=== PATIENT | male | born 1940 | race Caucasian/White ===

== ENCOUNTER 2020-08-24 19:51 | Inpatient (IN) | payer MEDICARE ==
--- NOTE | 2020-08-24 22:12 | ED ---
General Adult HPI - General Chief complaint: Skin/Abscess/Foreign Body Stated complaint: Failure to thrive Time Seen by Provider: 08/24/20 20:45 Source: patient, EMS Mode of arrival: EMS Limitations: altered mental status - History of Present Illness Initial comments: 80-year-old male patient is sent to the emergency department via EMS for decreased oral intake, increased lethargy, and pressure ulcers on the buttocks. Patient lives at home with his daughter. They do report a history of dementia. Patient has not been eating or drinking over the last 3 days. Patient states this is because he has no appetite. He denies any abdominal pain. Reports pain to the bilateral lower extremities. Patient is also developed wounds over the lower back and right hip region. Patient denies fevers or chills. They have consulted hospice recently, daughter is not present to provide information about this, patient is unaware. Patient denies any recent rash, fever, chills, cough, shortness of breath, chest pain, numbness, tingling, dizziness, weakness, hem aturia, dysuria, urinary urgency, urinary frequency, headache, visual changes, or any other complaints. - Related Data Allergies Allergy/AdvReac Type Severity Reaction Status Date / Time No Known Allergies Allergy Verified 08/24/20 20:04 Review of Systems ROS Statement: Those systems with pertinent positive or pertinent negative responses have been documented in the HPI. ROS Other: All systems not noted in ROS Statement are negative. Past Medical History Past Medical History: Unable to Obtain, Dementia History of Any Multi-Drug Resistant Organisms: Unobtainable Past Surgical History: Unable to Obtain Past Psychological History: Unable to Obtain Past Alcohol Use History: Unable to Obtain Past Drug Use History: Unable to Obtain General Exam Limitations: altered mental status General appearance: in no apparent distress, other (This is a malnourished, thin, pale-appearing male patient who does not appear to be in any acute distress. Vital signs upon presentation are pulse 103, respirations 18, blood pressure 105/68, pulse ox 96% on room air.) Eye exam: Present: normal appearance, PERRL, EOMI. Absent: scleral icterus, conjunctival injection, periorbital swelling ENT exam: Present: normal exam, normal oropharynx, mucous membranes dry Respiratory exam: Present: normal lung sounds bilaterally. Absent: respiratory distress, wheezes, rales, rhonchi, stridor Cardiovascular Exam: Present: normal rhythm, tachycardia, normal heart sounds. Absent: systolic murmur, diastolic murmur, rubs, gallop, clicks GI/Abdominal exam: Present: soft, normal bowel sounds. Absent: distended, tenderness, guarding, rebound, rigid Extremities exam: Present: other (There is large unstageable pressure ulcer noted to the right lateral hip. Yellow drainage noted. There is mild surrounding erythema.) Back exam: Present: other (There is a pressure ulcer noted over the lumbosacral region, this appears to be stage II. Yellow drainage noted.) Neurological exam: Present: alert, oriented X3, CN II-XII intact Psychiatric exam: Present: normal affect, normal mood Skin exam: Present: warm, dry, intact, normal color. Absent: rash Course Vital Signs 08/24/20 08/24/20 08/24/20 19:53 20:44 21:06 Temperature 97.3 F L Pulse Rate 103 H 75 Respiratory 18 15 Rate Blood Pressure 105/68 105/58 O2 Sat by Pulse 96 98 Oximetry 08/24/20 08/24/20 08/24/20 22:03 22:38 23:00 Temperature 97.7 F Pulse Rate 84 89 Respiratory 15 14 Rate Blood Pressure 88/66 88/55 96/78 O2 Sat by Pulse 98 100 Oximetry 08/24/20 23:38 Temperature Pulse Rate 69 Respiratory 15 Rate Blood Pressure 108/70 O2 Sat by Pulse 99 Oximetry - Reevaluation(s) Reevaluation #1: 08/24/20 23:03 Patient diagnosed with sepsis at 2303. Antibiotics will be started. Medical Decision Making - Medical Decision Making 80-year-old male patient is brought to the emergency department today for evaluation of wounds to the upper buttocks and low back. Daughter cares for the patient home, states that he seems to be displaying signs of dementia. States that he refuses to go to the doctor have any care done. States he has been re fusing to have her change in for the last few days. She was a wounds over his buttocks and made him come in tonight. Upon arrival patient is resting comfortably in bed, he appears quite thin and pale. Lungs are clear to auscultation. He does have a large pressure ulcer to the right hip and to the sacral region. Labs reviewed and did reveal elevated white blood cell count at 31.6, hemoglobin 11.2, sodium 124, chloride 89. BUN is elevated at 47, creatinine 1.27. Patient has no previous labs are visit to this hospital. Daughter states that she was attempting to get him in place with hospice but has not yet been able to do so. Patient was started on vancomycin and Zosyn at time of sepsis diagnosis. He'll be admitted to the hospital for further evaluation. He is agreeable. - Lab Data Result diagrams: 08/24/20 22:19 08/24/20 22:19 Lab Results 08/24/20 08/24/20 08/24/20 Range/Units 22:19 22:19 22:19 WBC 31.6 H (3.8-10.6) k/uL RBC 3.58 L (4.30-5.90) m/uL Hgb 11.2 L (13.0-17.5) gm/dL Hct 34.1 L (39.0-53.0) % MCV 95.2 (80.0-100.0) fL MCH 31.2 (25.0-35.0) pg MCHC 32.8 (31.0-37.0) g/dL RDW 13.6 (11.5-15.5) % Plt Count 341 (150-450) k/uL Neutrophils % 96 % Lymphocytes % 2 % Monocytes % 2 % Eosinophils % 0 % Basophils % 0 % Neutrophils # 30.3 H (1.3-7.7) k/uL Lymphocytes # 0.5 L (1.0-4.8) k/uL Monocytes # 0.7 (0-1.0) k/uL Eosinophils # 0.1 (0-0.7) k/uL Basophils # 0.0 (0-0.2) k/uL Manual Slide Review Performed PT 10.8 (9.0-12.0) sec INR 1.1 (<1.2) APTT 29.0 (22.0-30.0) sec Sodium 124 L (137-145) mmol/L Potassium 3.8 (3.5-5.1) mmol/L Chloride 89 L (98-107) mmol/L Carbon Dioxide 30 (22-30) mmol/L Anion Gap 5 mmol/L BUN 47 H (9-20) mg/dL Creatinine 1.27 H (0.66-1.25) mg/dL Est GFR (CKD-EPI)AfAm 62 (>60 ml/min/1.73 sqM) Est GFR (CKD-EPI)NonAf 53 (>60 ml/min/1.73 sqM) Glucose 109 H (74-99) mg/dL Plasma Lactic Acid Aman (0.7-2.0) mmol/L Calcium 8.5 (8.4-10.2) mg/dL Total Bilirubin 1.4 H (0.2-1.3) mg/dL AST 29 (17-59) U/L ALT 24 (4-49) U/L Alkaline Phosphatase 93 (38-126) U/L Total Protein 5.7 L (6.3-8.2) g/dL Albumin 2.6 L (3.5-5.0) g/dL 08/24/20 Range/Units 22:19 WBC (3.8-10.6) k/uL RBC (4.30-5.90) m/uL Hgb (13.0-17.5) gm/dL Hct (39.0-53.0) % MCV (80.0-100.0) fL MCH (25.0-35.0) pg MCHC (31.0-37.0) g/dL RDW (11.5-15.5) % Plt Count (150-450) k/uL Neutrophils % % Lymphocytes % % Monocytes % % Eosinophils % % Basophils % % Neutrophils # (1.3-7.7) k/uL Lymphocytes # (1.0-4.8) k/uL Monocytes # (0-1.0) k/uL Eosinophils # (0-0.7) k/uL Basophils # (0-0.2) k/uL Manual Slide Review PT (9.0-12.0) sec INR (<1.2) APTT (22.0-30.0) sec Sodium (137-145) mmol/L Potassium (3.5-5.1) mmol/L Chloride (98-107) mmol/L Carbon Dioxide (22-30) mmol/L Anion Gap mmol/L BUN (9-20) mg/dL Creatinine (0.66-1.25) mg/dL Est GFR (CKD-EPI)AfAm (>60 ml/min/1.73 sqM) Est GFR (CKD-EPI)NonAf (>60 ml/min/1.73 sqM) Glucose (74-99) mg/dL Plasma Lactic Acid Aman 2.0 (0.7-2.0) mmol/L Calcium (8.4-10.2) mg/dL Total Bilirubin (0.2-1.3) mg/dL AST (17-59) U/L ALT (4-49) U/L Alkaline Phosphatase (38-126) U/L Total Protein (6.3-8.2) g/dL Albumin (3.5-5.0) g/dL - EKG Data -: EKG Interpreted by Pr EKG Comments: EKG obtained at 2228 shows atrial fibrillation at a rate of 91, QRS duration is 86, QT 382, QTc 469. No evidence of ST elevation or depression. Disposition Clinical Impression: Sepsis, Pressure ulcer, Failure to thrive, Dehydration Disposition: ADMITTED IP TO THIS [facility] Condition: Serious Referrals: None,Stated [Primary Care Provider] - 1-2 days Decision to Admit Reason: Admit from EC Decision Date: 08/24/20 Decision Time: 23:55
[2020-08-24 22:28] LABS: Basophils % (A) 0 %; Eosinophils # (A) 0.1 k/uL (0-0.7); Eosinophils % (A) 0 %; HCT 34.1 % (39.0-53.0); HGB 11.2 gm/dL (13.0-17.5); Lymphocytes # (A) 0.5 k/uL (1.0-4.8); Lymphocytes % (A) 2 %; MCH 31.2 pg (25.0-35.0); MCHC 32.8 g/dL (31.0-37.0); MCV 95.2 fL (80.0-100.0); Mean Platelet Volume 7.5; Monocytes # (A) 0.7 k/uL (0-1.0); Monocytes % (A) 2 %; Neutrophils # (A) 30.3 k/uL (1.3-7.7); Neutrophils % (A) 96 %; Platelet Count 341 k/uL (150-450); RBC 3.58 m/uL (4.30-5.90); RDW 13.6 % (11.5-15.5); WBC 31.6 k/uL (3.8-10.6)
[2020-08-24 22:36] LABS: Albumin 2.6 g/dL (3.5-5.0); Calcium 8.5 mg/dL (8.4-10.2); Potassium 3.8 mmol/L (3.5-5.1); Total Bilirubin 1.4 mg/dL (0.2-1.3); Total Protein 5.7 g/dL (6.3-8.2)
[2020-08-24] MEDS: SODIUM CHLORIDE 0.9% 500 ML 500 ML IV SCH ×2 (22:39→23:09)
[2020-08-24 22:41] LABS: INR 1.1 (<1.2); Prothrombin Time 10.8 sec (9.0-12.0)
[2020-08-24] MEDS ORDERED: PIPERACILLIN-TAZOBACTAM 3.375 GM in SODIUM CHLORIDE 0.9% 100 ML IVPB STA (23:03)
[2020-08-24] MEDS ORDERED: VANCOMYCIN IV PER PHARMACY 1 EACH MISC MISCELLANE PRN (23:03)
[2020-08-24] MEDS ORDERED: SODIUM CHLORIDE 0.9% 500 ML 500 ML IV ONE (23:06)
[2020-08-24] MEDS: SODIUM CHLORIDE 0.9% 1,000 ML IV SCH (23:40)
[2020-08-24] MEDS ORDERED: HYDROmorphone 0.5 MG/0.5 ML SYRINGE IVP PRN (23:49)
[2020-08-24] MEDS ORDERED: ONDANSETRON 4 MG/2 ML VIAL IVP PRN (23:49)
[2020-08-24] MEDS ORDERED: NALOXONE 0.4 MG/ML 1 ML VIAL IV PRN (23:49)
[2020-08-25] MEDS ORDERED: VANCOMYCIN 1,000 MG in SODIUM CHLORIDE 0.9% 250 ML IVPB ONE ×2
[2020-08-25] MEDS ORDERED: HEPARIN SODIUM,PORCINE 5,000 UNIT/ML 1 ML VIAL IV PRN (00:21)
[2020-08-25] MEDS ORDERED: HEPARIN SODIUM,PORCINE 5,000 UNIT/ML 1 ML VIAL IV ONE (00:21)
[2020-08-25] MEDS: HEPARIN SOD,PORK IN 0.45% NACL 25,000 UNIT in 0.45% NACL 1 250ML.BAG IV SCH (00:56)
[2020-08-25 01:32] LABS: Appearance,Urine Cloudy (Clear); Bilirubin,Urine Negative (Negative); Blood,Urine Negative (Negative); Calcium Oxalate Crystals,Urine Occasional /hpf; Color,Urine Dark Brown; Glucose,Urine (UA) Negative (Negative); Hyaline Casts,Urine 282 /lpf (0-2); Ketones,Urine Negative (Negative); Leukocyte Esterase,Urine Trace (Negative); Mucus,Urine Rare /hpf; Nitrite,Urine Negative (Negative); PH, Urine 5.5 (5.0-8.0); Protein,Urine Trace (Negative); RBC,Urine 26 /hpf (0-5); Specific Gravity,Urine 1.016 (1.001-1.035); Squamous Epithelial Cell,Urine <1 /hpf (0-4); WBC,Urine 11 /hpf (0-5)
[2020-08-25 07:32] LABS: Basophils % (A) 0 %; Eosinophils # (A) 0.2 k/uL (0-0.7); Eosinophils % (A) 1 %; HCT 32.3 % (39.0-53.0); HGB 10.2 gm/dL (13.0-17.5); Lymphocytes # (A) 0.9 k/uL (1.0-4.8); Lymphocytes % (A) 3 %; MCH 31.1 pg (25.0-35.0); MCHC 31.7 g/dL (31.0-37.0); MCV 98.2 fL (80.0-100.0); Monocytes # (A) 0.5 k/uL (0-1.0); Monocytes % (A) 2 %; Neutrophils # (A) 28.1 k/uL (1.3-7.7); Neutrophils % (A) 94 %; Platelet Count 284 k/uL (150-450); RBC 3.29 m/uL (4.30-5.90); RDW 14.1 % (11.5-15.5); WBC 29.9 k/uL (3.8-10.6)
[2020-08-25 07:41] LABS: Albumin 2.4 g/dL (3.5-5.0); Calcium 7.9 mg/dL (8.4-10.2); Total Bilirubin 1.7 mg/dL (0.2-1.3); Total Protein 5.7 g/dL (6.3-8.2)
[2020-08-25 07:42] LABS: Potassium 4.1 mmol/L (3.5-5.1)
[2020-08-25 08:31] LABS: Poikilocytosis (M) Present
[2020-08-25] MEDS: SODIUM CHLORIDE 0.9% 1,000 ML IV SCH ×3 (10:04→23:49)
--- NOTE | 2020-08-25 10:54 | P.HPIM ---
History of Present Illness This is a pleasant 80 years old male with unknown past medical history, patient could not provide information so it was taken from the records, staff and daughter. As per my discussion with his daughter Ms. Dougherty at [phone], she told me his in 2011, and since then he started deteriorating, his heavy smoker since he was 9 years old, he used to be heavy drinker, however gradually he got degenerated, he had memory problems, he needed help with feeding, with cleaning, sometimes wears diapers but he told the daughter he just came up from the bathroom which was not true, sometimes he talks with full sentences and sometimes he talks with a few warts or 1-2 words, he didn't have good quality of life. He refuses to go to doctors and he does not trust them as per daughter, usually when he got sick he got to the hospital and it got treated for possible pneumonia or UTI or others go to rehab where he sees doctors and then once he goes home he become noncompliant and he does not follow up with physicians. Because of this patient has 2 daughters and both of them they wanted the patient to go for hospice, Ms. Dougherty was trying to find a place to have accepted for end of life care, she called hospice yesterday in the morning directly by herself because they thought he should be under hospice care. Eventually the port him to the emergency room. Patient looks thin and emaciated, continue his first name but he could not provide information, he does not look in distress. He has a Ray catheter with hematuria. He has multiple pressure ulcers. he is tachycardic and hypoxic with saturations 92% on 6 L o xygen Labs, afebrile. Labs showed leukocytosis of 31.6 and 20 9.9K, anemia with hemoglobin of 10.2, hyponatremia of 124 at 126, acute kidney injury with 1.2 and 1.1. Urinalysis is suspicious for infection. EKG showing A. fib with heart rate of 91 in the emergency room patient was started on heparin drip, Zosyn and vancomycin and normal saline Review of Systems n/a pt could not provide information Past Medical History Past Medical History: Unable to Obtain, Dementia History of Any Multi-Drug Resistant Organisms: Unobtainable Past Surgical History: Unable to Obtain Past Psychological History: Unable to Obtain Past Alcohol Use History: Unable to Obtain Past Drug Use History: Unable to Obtain Medications and Allergies Home Medications Medication Instructions Recorded Confirmed Type Aspirin EC [Ecotrin] 650 mg PO BID PRN 08/25/20 08/25/20 History Multivitamins, Thera [Multivitamin 1 tab PO DAILY 08/25/20 08/25/20 History (formulary)] Naproxen Sodium [Aleve] 220 mg PO DAILY PRN 08/25/20 08/25/20 History Perry-3 Fatty Acids/Fish Oil [Fish 1 cap PO DAILY 08/25/20 08/25/20 History Oil 1,000 mg Softgel] Allergies Allergy/AdvReac Type Severity Reaction Status Date / Time No Known Allergies Allergy Verified 08/25/20 08:26 Physical Exam Vitals: Vital Signs Temp Pulse Pulse Resp BP BP Pulse Ox 08/25/20 08:00 98.4 F 144 H 18 122/77 92 L 08/25/20 06:00 78 16 107/69 96 08/25/20 04:00 79 16 111/64 96 08/25/20 01:40 112/71 08/25/20 01:00 110/64 08/25/20 00:00 110/64 97 08/24/20 23:38 69 15 108/70 99 08/24/20 23:00 89 14 96/78 100 08/24/20 22:38 97.7 F 84 15 88/55 98 08/24/20 22:03 88/66 08/24/20 21:06 75 15 105/58 98 08/24/20 20:44 97.3 F L 08/24/20 19:53 103 H 18 105/68 96 Intake and Output 08/24/20 08/25/20 08/25/20 22:59 06:59 14:59 Output Total 3300 Balance -3300 Output: Urine 3300 Straight 3300 Other: Weight 49.895 kg -GENERAL: The patient is awake but confused, looks calm. She seek and emaciated HEENT: Pupils are round and equally reacting to light. EOMI. No scleral icterus. No conjunctival pallor. Normocephalic, atraumatic. No pharyngeal erythema. No thyromegaly. CARDIOVASCULAR: S1 and S2 present. No murmurs, rubs, or gallops. PULMONARY: Chest is clear to auscultation, no wheezing or crackles. -ABDOMEN: Soft, nontender, nondistended, normoactive bowel sounds. No palpable organomegaly. Ray catheter is in place with hematuria -MUSCULOSKELETAL: No joint swelling or deformity. Multiple pressure ulcers EXTREMITIES: No cyanosis, clubbing, or pedal edema. NEUROLOGICAL: Gross neurological examination did not reveal any focal deficits. SKIN: No rashes. No petechiae Results CBC & Chem 7: 08/25/20 07:15 08/25/20 07:19 Labs: Abnormal Lab Results - Last 24 Hours (Table) 08/24/20 08/24/20 08/25/20 Range/Units 22:19 22:19 01:20 WBC 31.6 H (3.8-10.6) k/uL RBC 3.58 L (4.30-5.90) m/uL Hgb 11.2 L (13.0-17.5) gm/dL Hct 34.1 L (39.0-53.0) % Neutrophils # 30.3 H (1.3-7.7) k/uL Lymphocytes # 0.5 L (1.0-4.8) k/uL APTT (22.0-30.0) sec Sodium 124 L (137-145) mmol/L Chloride 89 L (98-107) mmol/L BUN 47 H (9-20) mg/dL Creatinine 1.27 H (0.66-1.25) mg/dL Glucose 109 H (74-99) mg/dL Calcium (8.4-10.2) mg/dL Total Bilirubin 1.4 H (0.2-1.3) mg/dL Total Protein 5.7 L (6.3-8.2) g/dL Albumin 2.6 L (3.5-5.0) g/dL Urine Protein Trace H (Negative) Ur Leukocyte Esterase Trace H (Negative) Urine RBC 26 H (0-5) /hpf Urine WBC 11 H (0-5) /hpf Calcium Oxalate Crystal Occasional H (None) /hpf Hyaline Casts 282 H (0-2) /lpf Urine Mucus Rare H (None) /hpf 08/25/20 08/25/20 08/25/20 Range/Units 07:15 07:15 07:19 WBC 29.9 H (3.8-10.6) k/uL RBC 3.29 L (4.30-5.90) m/uL Hgb 10.2 L (13.0-17.5) gm/dL Hct 32.3 L (39.0-53.0) % Neutrophils # 28.1 H (1.3-7.7) k/uL Lymphocytes # 0.9 L (1.0-4.8) k/uL APTT 35.1 H (22.0-30.0) sec Sodium 126 L (137-145) mmol/L Chloride 96 L (98-107) mmol/L BUN 47 H (9-20) mg/dL Creatinine (0.66-1.25) mg/dL Glucose (74-99) mg/dL Calcium 7.9 L (8.4-10.2) mg/dL Total Bilirubin 1.7 H (0.2-1.3) mg/dL Total Protein 5.7 L (6.3-8.2) g/dL Albumin 2.4 L (3.5-5.0) g/dL Urine Protein (Negative) Ur Leukocyte Esterase (Negative) Urine RBC (0-5) /hpf Urine WBC (0-5) /hpf Calcium Oxalate Crystal (None) /hpf Hyaline Casts (0-2) /lpf Urine Mucus (None) /hpf Microbiology - Last 24 Hours (Table) 08/25/20 01:20 Urine Culture - Preliminary Urine,Clean Catch Assessment and Plan Assessment: sepsis Hyponatremia Multiple pressure ulcers Hematuria Atrial fibrillation Tachycardia Memory problem, suspicious for dementia, patient has difficulty taking care of himself Cachexia and deconditioning, BMI is 14.9 Generalized weakness Acute kidney injury Noncompliance and adherence to therapy Plan: This is a pleasant 80 years old male presents with multiple problems including sepsis and hyponatremia and pressure ulcers and tachycardia. Patient has multiple medical problems and was gradually deteriorating, I have lengthy discussions with the daughter on the phone, family including Ms. Dougherty wants him to be under hospice care and she states that her only sister agrees with this. This is looks reasonable given the patient's multiple medical conditions, and nonadherence to therapy, poor quality of life, and severe and progressive memory problem with muscle underlying dementia. This Ladonna give me the okay to call for hospice consult. Discussed with the staff Labs and medication were reviewed.. Continue same treatment. Continue with symptomatic treatment. Resume home medication. Monitor lytes and vitals. DVT and GI prophylaxis. Further recommendations depends on the clinical course of the patient Prognosis is extremely guarded
[2020-08-25] MEDS: DILTIAZEM 125 MG in SODIUM CHLORIDE 0.9% 100 ML IV SCH (11:35)
[2020-08-25] MEDS ORDERED: LORazepam 2 MG/ML INJ IV PRN ×2 (15:40→15:44)
[2020-08-25] MEDS ORDERED: VANCOMYCIN 1,000 MG in SODIUM CHLORIDE 0.9% 250 ML IVPB SCH ×2 (17:00→21:00)
--- NOTE | 2020-08-25 17:54 | ECHOF ---
Referral Reason:afib rvr MEASUREMENTS -------- HEIGHT: 177.8 cm WEIGHT: 49.9 kg BP: RVIDd: 3.6 cm (< 3.3) IVSd: 1.0 cm (0.6 - 1.1) LVIDd: 3.1 cm (3.9 - 5.3) LVPWd: 1.2 cm (0.6 - 1.1) IVSs: 1.7 cm LVIDs: 1.9 cm LVPWs: 2.0 cm Ao Diam: 3.4 cm (2.0 - 3.7) AV Cusp: 2.2 cm (1.5 - 2.6) LA Diam: 2.9 cm (2.7 - 3.8) RAP: 5.00 mmHg RVSP: 16.65 mmHg FINDINGS -------- This was a technically difficult study with suboptimal views. The left ventricular size is normal. Left ventricular wall thickness is normal. Overall left vent ricular systolic function is normal with, an EF between 55 - 60 %. The right ventricle is mildly enlarged. The left atrial size is normal. The right atrial size is normal. The aortic valve is trileaflet and appears structurally normal. The mitral valve is normal. There is trace mitral regurgitation. The tricuspid valve appears structurally normal. Trace tricuspid regurgitation present. Right ana tricular systolic pressure is normal at < 35 mmHg. There is no pulmonic regurgitation present. The aortic root size is normal. IVC Not well visulized. There is no pericardial effusion. CONCLUSIONS -------- 1. This was a technically difficult study with suboptimal views. 2. The left ventricular size is normal. 3. Left ventricular wall thickness is normal. 4. Overall left ventricular systolic function is normal with, an EF between 55 - 60 %. 5. The right ventricle is mildly enlarged. 6. There is trace mitral regurgitation. 7. Trace tricuspid regurgitation present. 8. There is no pericardial effusion. CLINICAL ASSESSMENT MANAGER: Krystal Carbajal RDCS
[2020-08-25] MEDS: PIPERACILLIN-TAZOBACTAM 3.375 GM in SODIUM CHLORIDE 0.9% 100 ML IVPB SCH (23:44)
[2020-08-26] MEDS: HEPARIN SOD,PORK IN 0.45% NACL 25,000 UNIT in 0.45% NACL 1 250ML.BAG IV SCH (02:14)
--- NOTE | 2020-08-26 07:48 | P.CRDCN ---
History of Present Illness Consult date: 08/26/20 Requesting physician: [facility] reason: atrial fibrillation Chief complaint: Weakness History of present illness: This is a 80-year-old gentleman the history was obtained from the medical record as the patient is nonverbal. Upon review of the patient's medical record it appears that the patient had been urinating significantly at home and the family was seeking hospice care. He has a significant history of smoking since the age of 9, history of EtOH, dementia, cardiology consultation was requested because of atrial fibrillation with rapid ventricular response. Patient was going to be initiated here on hospice, however a second daughter came to the hospital last night and requested that the patient be a full code. He was seen and examined this morning lying in bed, nonverbal, he does respond to painful stimuli. His EKG on presentation here showed atrial fibrillation with a heart rate in the 90s, yesterday his heart rate did go up into the 12/17/1929 range, he is currently on IV heparin and Cardizem drip. An echocardiogram with Doppler study was performed which revealed an ejection fraction of 55-60%. Blood pressure 144/60 with a heart rate in the 60s, 99% on 6 L of oxygen. Laboratory data was reviewed, white blood cell count on admission 31.6, 29.9 this morning, hemoglobin 10.2, platelet count 284. Sodium 126, potassium 4.1, BUN 47, creatinine 1.1. TSH 3.6. Past Medical History Past Medical History: Unable to Obtain, Dementia, Seizure Disorder Additional Past Medical History / Comment(s): daughter states patient has a history of a head injury with seizures and last seizure was about 25 years ago, patients daughter also states patient has a history of an irregular heart rate, daughter states patient used to be a heavy beer and vodka drinker but hasnt drank heavily in about 4 years History of Any Multi-Drug Resistant Organisms: Unobtainable Past Surgical History: Unable to Obtain Past Psychological History: Unable to Obtain Smoking Status: Former smoker Past Alcohol Use History: Occasional Past Drug Use History: Unable to Obtain Medications and Allergies Home Medications Medication Instructions Recorded Confirmed Type Aspirin EC [Ecotrin] 650 mg PO BID PRN 08/25/20 08/25/20 History Multivitamins, Thera [Multivitamin 1 tab PO DAILY 08/25/20 08/25/20 History (formulary)] Naproxen Sodium [Aleve] 220 mg PO DAILY PRN 08/25/20 08/25/20 History [place]-3 Fatty Acids/Fish Oil [Fish 1 cap PO DAILY 08/25/20 08/25/20 History Oil 1,000 mg Softgel] Allergies Allergy/AdvReac Type Severity Reaction Status Date / Time No Known Allergies Allergy Verified 08/25/20 08:26 Physical Exam Vitals: Vital Signs Temp Pulse Pulse Resp BP BP Pulse Ox 08/26/20 04:00 98.7 F 59 L 20 144/61 99 08/26/20 00:00 74 20 108/55 94 L 08/25/20 20:00 98.2 F 75 20 119/58 100 08/25/20 16:00 98.3 F 78 20 118/73 98 08/25/20 12:00 96.9 F L 97 20 111/78 92 L 08/25/20 11:53 134 H 18 102/76 92 L 08/25/20 08:00 98.4 F 134 H 18 122/77 92 L Intake and Output 08/25/20 08/26/20 08/26/20 22:59 06:59 14:59 Intake Total 101.28 1358.25 Output Total 300 Balance 101.28 1058.25 Intake: IV 1300 Sodium Chloride 0.9% 1, 1300 000 ml @ 130 mls/hr IV . Q7H42M [facility] Rx#:[id number] Intake, IV Titration 101.28 58.25 Amount Heparin Sod,Pork in 0.45% 101.28 58.25 NaCl 25,000 unit In 0.45 % NaCl 1 250ml.bag @ 12 UNITS/KG/HR 5.987 mls/hr IV .Q24H [facility] Rx#: [id number] Output: Urine 300 Straight 300 Other: Voiding Method Indwelling Catheter Indwelling Catheter # Voids 1 Weight 49.895 kg 61.5 kg PHYSICAL EXAMINATION: GENERAL: 80-year-old frail, thin emaciated gentleman, in no acute distress at the time of my examination HEENT: Head is atraumatic, normocephalic. Pupils equal, round. Sclera anicteric. Conjunctiva are clear. Mucous membranes of the mouth are moist. Neck is supple. There is no elevated jugular venous pressure. No carotid bruit is heard. HEART EXAMINATION: Heart S1, S2 normal. No murmur or gallop heard. CHEST EXAMINATION: Lungs reveal crackles at the bases ABDOMEN: Soft, nontender. Bowel sounds are heard. No organomegaly noted. EXTREMITIES: 2+ peripheral pulses with no evidence of peripheral edema and no calf tenderness noted. NEUROLOGIC patient is sleeping, nonverbal, arouses to painful stimuli . Results 08/25/20 07:15 08/25/20 07:19 Cardiac Enzymes 08/25/20 Range/Units 07:19 AST 52 (17-59) U/L Coagulation 08/25/20 08/25/20 08/26/20 Range/Units 07:15 15:36 00:01 APTT 35.1 H 32.4 H 43.7 H (22.0-30.0) sec CBC 08/25/20 Range/Units 07:15 WBC 29.9 H (3.8-10.6) k/uL RBC 3.29 L (4.30-5.90) m/uL Hgb 10.2 L (13.0-17.5) gm/dL Hct 32.3 L (39.0-53.0) % Plt Count 284 (150-450) k/uL Comprehensive Metabolic Panel 08/25/20 Range/Units 07:19 Sodium 126 L (137-145) mmol/L Potassium 4.1 (3.5-5.1) mmol/L Chloride 96 L (98-107) mmol/L Carbon Dioxide 24 (22-30) mmol/L BUN 47 H (9-20) mg/dL Creatinine 1.10 (0.66-1.25) mg/dL Glucose 97 (74-99) mg/dL Calcium 7.9 L (8.4-10.2) mg/dL AST 52 (17-59) U/L ALT 25 (4-49) U/L Alkaline Phosphatase 95 (38-126) U/L Total Protein 5.7 L (6.3-8.2) g/dL Albumin 2.4 L (3.5-5.0) g/dL Current Medications Generic Name Dose Route Start Last Admin Trade Name Freq PRN Reason Stop Dose Admin Acetaminophen 650 mg 08/24/20 23:49 Acetaminophen Tab 325 Mg Tab PO Q6HR PRN Mild Pain or Fever > 100.5 Heparin Sodium (Porcine) 0 unit 08/25/20 00:21 08/25/20 17:51 Heparin Sodium,Porcine 5,000 Unit/Ml 1 Ml Vial IV 2,494.5 unit PER PROTOCOL PRN Administration Low PTT Protocol Hydromorphone HCl 0.5 mg 08/24/20 23:49 Hydromorphone 0.5 Mg/0.5 Ml Syringe IVP Q3HR PRN Moderate Pain Sodium Chloride 1,000 mls @ 130 mls/hr 08/24/20 23:15 08/25/20 23:49 Saline 0.9% IV Not Given .Q7H42M COUNTS INCLUDE 234 BEDS AT THE [facility] Heparin Sodium/Sodium Chloride 250 mls @ 5.987 mls/hr 08/25/20 00:30 08/26/20 02:14 25,000 unit/ Sodium Chloride IV Not Given .Q24H COUNTS INCLUDE 234 BEDS AT THE [facility] Protocol 12 UNITS/KG/HR Diltiazem HCl 125 mg/ Sodium 125 mls @ 5 mls/hr 08/25/20 10:45 08/25/20 11:35 Chloride IV 5 mg/hr .Q24H [facility] 5 mls/hr Administration 5 MG/HR Vancomycin HCl 1,000 mg/ 250 mls @ 125 mls/hr 08/25/20 21:00 08/25/20 21:10 Sodium Chloride IVPB 125 mls/hr Q24H [facility] Administration Piperacillin Sod/Tazobactam 100 mls @ 25 mls/hr 08/26/20 00:00 08/25/20 23:44 Sod 3.375 gm/ Sodium Chloride IVPB 25 mls/hr Q8H [facility] Administration Lorazepam 0.5 mg 08/25/20 15:40 Lorazepam 2 Mg/Ml Inj IV Q6HR PRN Mild Anxiety Lorazepam 1 mg 08/25/20 15:44 08/25/20 15:50 Lorazepam 2 Mg/Ml Inj IV 1 mg Q6HR PRN Administration Moderate Anxiety Naloxone HCl 0.2 mg 08/24/20 23:49 Naloxone 0.4 Mg/Ml 1 Ml Vial IV Q2M PRN Opioid Reversal Ondansetron HCl 4 mg 08/24/20 23:49 Ondansetron 4 Mg/2 Ml Vial IVP Q8HR PRN Nausea And Vomiting Intake and Output 08/25/20 08/26/20 08/26/20 22:59 06:59 14:59 Intake Total 101.28 1358.25 Output Total 300 Balance 101.28 1058.25 Intake: IV 1300 Sodium Chloride 0.9% 1, 1300 000 ml @ 130 mls/hr IV . Q7H42M [facility] Rx#:[id number] Intake, IV Titration 101.28 58.25 Amount Heparin Sod,Pork in 0.45% 101.28 58.25 NaCl 25,000 unit In 0.45 % NaCl 1 250ml.bag @ 12 UNITS/KG/HR 5.987 mls/hr IV .Q24H [facility] Rx#: [id number] Output: Urine 300 Straight 300 Other: Voiding Method Indwelling Catheter Indwelling Catheter # Voids 1 Weight 49.895 kg 61.5 kg 08/25/20 07:15 08/25/20 07:19 EKG Interpretations (text) Initial EKG shows atrial fibrillation with moderately rapid ventricular response Assessment and Plan Plan: Assessment and plan #1 sepsis #2 hyponatremia #3 pressure ulcers #4 atrial fibrillation with rapid ventricular response, persistent #5 dementia #6 nicotine dependence #7 EtOH use #8 acute kidney injury, resolving #9 cachexia and deconditioning Plan Echocardiogram with Doppler study was performed and revealed a normal left ventricular systolic function. We will continue the patient on IV Cardizem and IV heparin at this time. Another discussion today is going to be made regarding hospice care. He is not currently taking any oral medications. Further recommendations to follow. DNP note has been reviewed, I agree with a documented findings and plan of care. Patient was seen and examined.
[2020-08-26 08:05] LABS: African American GFR (CKD) >90 (>60 ml/min/1.73 sqM); Anion Gap 10 mmol/L; Blood Urea Nitrogen 39 mg/dL (9-20); Calcium 7.7 mg/dL (8.4-10.2); Carbon Dioxide 21 mmol/L (22-30); Chloride 101 mmol/L (98-107); Glucose 67 mg/dL (74-99); Non-African American GFR(CKD) 81 (>60 ml/min/1.73 sqM); Potassium 3.4 mmol/L (3.5-5.1); Sodium 132 mmol/L (137-145)
[2020-08-26 08:07] LABS: Basophils % (A) 0 %; Eosinophils # (A) 0.1 k/uL (0-0.7); Eosinophils % (A) 0 %; HGB 9.5 gm/dL (13.0-17.5); Lymphocytes # (A) 0.8 k/uL (1.0-4.8); Lymphocytes % (A) 4 %; MCH 31.4 pg (25.0-35.0); MCHC 31.8 g/dL (31.0-37.0); MCV 98.6 fL (80.0-100.0); Mean Platelet Volume 7.6; Monocytes # (A) 0.4 k/uL (0-1.0); Monocytes % (A) 2 %; Neutrophils % (A) 94 %; Platelet Count 346 k/uL (150-450); RBC 3.04 m/uL (4.30-5.90); RDW 13.8 % (11.5-15.5); WBC 22.5 k/uL (3.8-10.6)
--- NOTE | 2020-08-26 08:59 | P.PN ---
Subjective This is a pleasant 80 years old male with unknown past medical history, patient could not provide information so it was taken from the records, staff and daughter. As per my discussion with his daughter Ms. Dougherty at [phone] feet [phone], she told me his in 2011, and since then he started deteriorating, his heavy smoker since he was 9 years old, he used to be heavy drinker, however gradually he got degenerated, he had memory problems, he needed help with feeding, with cleaning, sometimes wears diapers but he told the daughter he just came up from the bathroom which was not true, sometimes he talks with full sentences and sometimes he talks with a few warts or 1-2 words, he didn't have good quality of life. He refuses to go to doctors and he does not trust them as per daughter, usually when he got sick he got to the hospital and it got treated for possible pneumonia or UTI or others go to rehab where he sees doctors and then once he goes home he become noncompliant and he does not follow up with physicians. Because of this patient has 2 daughters and both of them they wanted the patient to go for hospice, Ms. Dougherty was trying to find a place to have accepted for end of life care, she called hospice yesterday in the morning directly by herself because they thought he should be under hospice care. Eventually the port him to the emergency room. Patient looks thin and emaciated, continue his first name but he could not provide information, he does not look in distress. He has a Ray catheter with hematuria. He has multiple pressure ulcers. he is tachycardic and hypoxic with saturations 92% on 6 L oxygen Labs, afebrile. Labs showed leukocytosis of 31.6 and 20 9.9K, anemia with hemoglobin of 10.2, hyponatremia of 124 at 126, acute kidney injury with 1.2 and 1.1. Urinalysis is suspicious for infection. EKG showing A. fib with heart rate of 91 in the emergency room patient was started on heparin drip, Zosyn and vancomycin and normal saline 08/26/2020 Patient still confused, does not respond to stimuli, does not follow commands, at times he can say his name but nothing else. He looks weak and cachectic, he is contracted in his lower extremity and he has multiple ulcers in his back, scrotum and ankles. Vitals are stable, still on 6 L oxygen via nasal cannula and is saturating 99% WBC is 20 2.5K, sodium is 132. He has a Ray catheter was little hematuria, his hemoglobin 9.5 today compared to 10.2 yesterday. Distal on heparin drip, Cardizem, Zosyn and IV vancomycin. Blood cultures positive for Proteus with sensitivities pending Review of system: N/a Active Medications Generic Name Dose Route Start Last Admin Trade Name Freq PRN Reason Stop Dose Admin Acetaminophen 650 mg 08/24/20 23:49 Acetaminophen Tab 325 Mg Tab PO Q6HR PRN Mild Pain or Fever > 100.5 Heparin Sodium (Porcine) 0 unit 08/25/20 00:21 08/25/20 17:51 Heparin Sodium,Porcine 5,000 Unit/Ml 1 Ml Vial IV 2,494.5 unit PER PROTOCOL PRN Administration Low PTT Protocol Hydromorphone HCl 0.5 mg 08/24/20 23:49 Hydromorphone 0.5 Mg/0.5 Ml Syringe IVP Q3HR PRN Moderate Pain Sodium Chloride 1,000 mls @ 130 mls/hr 08/24/20 23:15 08/25/20 23:49 Saline 0.9% IV Not Given .Q7H42M [facility] Heparin Sodium/Sodium Chloride 250 mls @ 5.987 mls/hr 08/25/20 00:30 08/26/20 02:14 25,000 unit/ Sodium Chloride IV Not Given .Q24H [facility] Protocol 12 UNITS/KG/HR Diltiazem HCl 125 mg/ Sodium 125 mls @ 5 mls/hr 08/25/20 10:45 08/25/20 11:35 Chloride IV 5 mg/hr .Q24H [facility] 5 mls/hr Administration 5 MG/HR Piperacillin Sod/Tazobactam 100 mls @ 25 mls/hr 08/26/20 00:00 08/25/20 23:44 Sod 3.375 gm/ Sodium Chloride IVPB 25 mls/hr Q8H [facility] Administration Vancomycin HCl 1,250 mg/ 250 mls @ 125 mls/hr 08/26/20 13:00 Sodium Chloride IVPB Q16H [facility] Lorazepam 0.5 mg 08/25/20 15:40 Lorazepam 2 Mg/Ml Inj IV Q6HR PRN Mild Anxiety Lorazepam 1 mg 08/25/20 15:44 08/25/20 15:50 Lorazepam 2 Mg/Ml Inj IV 1 mg Q6HR PRN Administration Moderate Anxiety Naloxone HCl 0.2 mg 08/24/20 23:49 Naloxone 0.4 Mg/Ml 1 Ml Vial IV Q2M PRN Opioid Reversal Ondansetron HCl 4 mg 08/24/20 23:49 Ondansetron 4 Mg/2 Ml Vial IVP Q8HR PRN Nausea And Vomiting Objective - Vital Signs Vital signs: Vital Signs Temp 98.7 F 08/26/20 04:00 Pulse 59 L 08/26/20 04:00 Resp 20 08/26/20 04:00 BP 144/61 08/26/20 04:00 Pulse Ox 99 08/26/20 04:00 Intake & Output 08/25/20 08/26/20 08/26/20 18:59 06:59 18:59 Intake Total 1456.28 1358.25 Output Total 300 Balance 1456.28 1058.25 Weight 61.5 kg Intake: IV 1300 Sodium Chloride 0.9% 1, 1300 000 ml @ 130 mls/hr IV . Q7H42M [facility] Rx#:[id number] Intake, IV Titration 1456.28 58.25 Amount Diltiazem 125 mg In 15 Sodium Chloride 0.9% 100 ml @ 5 MG/HR 5 mls/hr IV .Q24H [facility] Rx#:[id number] Heparin Sod,Pork in 0.45% 101.28 58.25 NaCl 25,000 unit In 0.45 % NaCl 1 250ml.bag @ 12 UNITS/KG/HR 5.987 mls/hr IV .Q24H [facility] Rx#: [id number] Piperacillin-Tazobactam 3 50 .375 gm In Sodium Chloride 0.9% 100 ml @ 200 mls/hr IVPB [facility] Rx#:[id number] Sodium Chloride 0.9% 1, 1040 000 ml @ 130 mls/hr IV . Q7H42M [facility] Rx#:[id number] Vancomycin 1,000 mg In 250 Sodium Chloride 0.9% 250 ml @ 125 mls/hr IVPB Q24H [facility] Rx#:[id number] Output: Urine 300 Straight 300 Other: Voiding Method Indwelling Catheter Indwelling Catheter # Voids 1 - Labs CBC & Chem 7: 08/26/20 07:19 08/26/20 07:19 Labs: Abnormal Lab Results - Last 24 Hours (Table) 08/25/20 08/26/20 08/26/20 Range/Units 15:36 00:01 07:19 WBC 22.5 H (3.8-10.6) k/uL RBC 3.04 L (4.30-5.90) m/uL Hgb 9.5 L (13.0-17.5) gm/dL Hct 30.0 L (39.0-53.0) % Neutrophils # 21.0 H (1.3-7.7) k/uL Lymphocytes # 0.8 L (1.0-4.8) k/uL APTT 32.4 H 43.7 H (22.0-30.0) sec Sodium (137-145) mmol/L Potassium (3.5-5.1) mmol/L Carbon Dioxide (22-30) mmol/L BUN (9-20) mg/dL Glucose (74-99) mg/dL Calcium (8.4-10.2) mg/dL 08/26/20 08/26/20 Range/Units 07:19 07:19 WBC (3.8-10.6) k/uL RBC (4.30-5.90) m/uL Hgb (13.0-17.5) gm/dL Hct (39.0-53.0) % Neutrophils # (1.3-7.7) k/uL Lymphocytes # (1.0-4.8) k/uL APTT 43.2 H (22.0-30.0) sec Sodium 132 L (137-145) mmol/L Potassium 3.4 L (3.5-5.1) mmol/L Carbon Dioxide 21 L (22-30) mmol/L BUN 39 H (9-20) mg/dL Glucose 67 L (74-99) mg/dL Calcium 7.7 L (8.4-10.2) mg/dL Microbiology - Last 24 Hours (Table) 08/24/20 22:19 Blood Culture Gram Stain - Preliminary Blood Blood Culture - Preliminary Proteus spec 08/24/20 22:19 Blood Culture - Final Blood 08/25/20 01:20 Urine Culture - Preliminary Urine,Clean Catch Assessment and Plan Assessment: sepsis Hyponatremia Multiple pressure ulcers Hematuria Atrial fibrillation Tachycardia Memory problem, suspicious for dementia, patient has difficulty taking care of himself Cachexia and deconditioning, BMI is 14.9 Generalized weakness Acute kidney injury Noncompliance and adherence to therapy Plan: This is a pleasant 80 years old male presents with multiple problems including sepsis and hyponatremia and pressure ulcers and tachycardia. Patient has multiple medical problems and was gradually deteriorating, as per my discussion with the daughter yesterday she wanted hospice care to be consulted, however as per staff he wanted to wait for 24 hours. continue to be on antibiotics Zosyn and IV vancomycin. Follow-up Proteus sensitivity to antibiotics which is pending. Continue monitoring heart rate. Discussed with the staff Labs and medication were reviewed.. Continue same treatment. Continue with symptomatic treatment. Resume home medication. Monitor lytes and vitals. DVT and GI prophylaxis. Further recommendations depends on the clinical course of the patient Prognosis is extremely guarded
--- NOTE | 2020-08-26 09:01 | P.CONS ---
History of Present Illness - Reason for Consult Consult date: 08/26/20 Wound care - History of Present Illness This is a 80-year-old patient being seen on 3 for multiple nonhealing ulcerations. Patient is unable to answer questions and is upset about being turned or moved. History was taken from chart. Patient is found man sedated with poor hygiene. It appears he lives alone. And has not compliant with his own self-care or medications. Patient was sent to the emergency room for evaluation and possible transition to hospice care. Review of Systems ROS unobtainable: due to mental status Past Medical History Past Medical History: Unable to Obtain, Dementia, Seizure Disorder Additional Past Medical History / Comment(s): daughter states patient has a history of a head injury with seizures and last seizure was about 25 years ago, patients daughter also states patient has a history of an irregular heart rate, daughter states patient used to be a heavy beer and vodka drinker but hasnt drank heavily in about 4 years History of Any Multi-Drug Resistant Organisms: Unobtainable Past Surgical History: Unable to Obtain Past Psychological History: Unable to Obtain Smoking Status: Former smoker Past Alcohol Use History: Occasional Past Drug Use History: Unable to Obtain Medications and Allergies Home Medications Medication Instructions Recorded Confirmed Type Aspirin EC [Ecotrin] 650 mg PO BID PRN 08/25/20 08/25/20 History Multivitamins, Thera [Multivitamin 1 tab PO DAILY 08/25/20 08/25/20 History (formulary)] Naproxen Sodium [Aleve] 220 mg PO DAILY PRN 08/25/20 08/25/20 History [place]-3 Fatty Acids/Fish Oil [Fish 1 cap PO DAILY 08/25/20 08/25/20 History Oil 1,000 mg Softgel] Allergies Allergy/AdvReac Type Severity Reaction Status Date / Time No Known Allergies Allergy Verified 08/25/20 08:26 Physical Exam Vitals: Vital Signs Temp Pulse Pulse Resp BP BP Pulse Ox 08/26/20 04:00 98.7 F 59 L 20 144/61 99 08/26/20 00:00 74 20 108/55 94 L 08/25/20 20:00 98.2 F 75 20 119/58 100 08/25/20 16:00 98.3 F 78 20 118/73 98 08/25/20 12:00 96.9 F L 97 20 111/78 92 L 08/25/20 11:53 134 H 18 102/76 92 L Intake and Output 08/25/20 08/26/20 08/26/20 22:59 06:59 14:59 Intake Total 101.28 1358.25 Output Total 300 Balance 101.28 1058.25 Intake: IV 1300 Sodium Chloride 0.9% 1, 1300 000 ml @ 130 mls/hr IV . Q7H42M [facility] Rx#:[id number] Intake, IV Titration 101.28 58.25 Amount Heparin Sod,Pork in 0.45% 101.28 58.25 NaCl 25,000 unit In 0.45 % NaCl 1 250ml.bag @ 12 UNITS/KG/HR 5.987 mls/hr IV .Q24H [facility] Rx#: [id number] Output: Urine 300 Straight 300 Other: Voiding Method Indwelling Catheter Indwelling Catheter # Voids 1 Weight 49.895 kg 61.5 kg Physical exam: General Appearance: Drowsy uncooperative cooperative, no distress, appears older stated age , Indu dated. Skin: Right trocar ulceration is a unstageable pressure ulcer with eschar and slough measuring approximately 8 x 7 x 0.1 cm, coccyx ulceration is a stage II cluster of 2 ulceration measuring impression a 5 x 6 x 0.2 cm in 1 x 2 x 0.1 cm significant amount of slough noted within the wound bed and minimal granulation, wound edges attached to the wound base. Periwound shows ecchymosis and maceration. Right ankle ulceration is a stage II ulceration measuring approximately 2 x 3 x 0.1 cm granulation seen throughout the wound bed with minimal slough. Wound edges attached to the wound base. Periwound shows dry scaling and scarring. all other Skin color, texture, tugor normal, no rashes or lesions. Neurologic: Alert oriented 1 to self Results CBC & Chem 7: 08/26/20 07:19 08/26/20 07:19 Labs: Abnormal Lab Results - Last 24 Hours (Table) 08/25/20 08/26/20 08/26/20 Range/Units 15:36 00:01 07:19 WBC 22.5 H (3.8-10.6) k/uL RBC 3.04 L (4.30-5.90) m/uL Hgb 9.5 L (13.0-17.5) gm/dL Hct 30.0 L (39.0-53.0) % Neutrophils # 21.0 H (1.3-7.7) k/uL Lymphocytes # 0.8 L (1.0-4.8) k/uL APTT 32.4 H 43.7 H (22.0-30.0) sec Sodium (137-145) mmol/L Potassium (3.5-5.1) mmol/L Carbon Dioxide (22-30) mmol/L BUN (9-20) mg/dL Glucose (74-99) mg/dL Calcium (8.4-10.2) mg/dL 08/26/20 08/26/20 Range/Units 07:19 07:19 WBC (3.8-10.6) k/uL RBC (4.30-5.90) m/uL Hgb (13.0-17.5) gm/dL Hct (39.0-53.0) % Neutrophils # (1.3-7.7) k/uL Lymphocytes # (1.0-4.8) k/uL APTT 43.2 H (22.0-30.0) sec Sodium 132 L (137-145) mmol/L Potassium 3.4 L (3.5-5.1) mmol/L Carbon Dioxide 21 L (22-30) mmol/L BUN 39 H (9-20) mg/dL Glucose 67 L (74-99) mg/dL Calcium 7.7 L (8.4-10.2) mg/dL Microbiology - Last 24 Hours (Table) 08/24/20 22:19 Blood Culture Gram Stain - Preliminary Blood Blood Culture - Preliminary Proteus spec 08/24/20 22:19 Blood Culture - Final Blood 08/25/20 01:20 Urine Culture - Preliminary Urine,Clean Catch Assessment and Plan (1) Pressure ulcer of right hip, unstageable Current Visit: Yes Status: Acute Code(s): L89.210 - PRESSURE ULCER OF RIGHT HIP, UNSTAGEABLE SNOMED Code(s): 159342017 (2) Pressure ulcer of right ankle, stage 2 Current Visit: Yes Status: Acute Code(s): L89.512 - PRESSURE ULCER OF RIGHT ANKLE, STAGE 2 SNOMED Code(s): 277759878 (3) Pressure ulcer of coccygeal region, stage 2 Current Visit: Yes Status: Acute Code(s): L89.152 - PRESSURE ULCER OF SACRAL REGION, STAGE 2 SNOMED Code(s): 567914742 Plan: Apply honey gel to all ulcerations saline moistened gauze and foam. Change Monday. Assess surface algorithm and provide appropriate surface. Turn every 2 hours. Utilize foam boots. Consult nutrition.
[2020-08-26] MEDS: SODIUM CHLORIDE 0.9% 1,000 ML IV SCH ×3 (09:07→20:16)
[2020-08-26] MEDS: PIPERACILLIN-TAZOBACTAM 3.375 GM in SODIUM CHLORIDE 0.9% 100 ML IVPB SCH (09:13)
[2020-08-26] MEDS ORDERED: CEFEPIME 2 GM in SODIUM CHLORIDE 0.9% 100 ML IVPB ONE (09:30)
[2020-08-26 10:57] VITALS: BMI 18.3
[2020-08-26] MEDS: DILTIAZEM 125 MG in SODIUM CHLORIDE 0.9% 100 ML IV SCH (12:04)
--- NOTE | 2020-08-26 13:03 | P.CONS ---
History of Present Illness - Reason for Consult Consult date: 08/25/20 leukocytosis and pressure ulcers Requesting physician: Juventino E Sheet - Chief Complaint weakness and worsening pressure ulcers x days - History of Present Illness Patient is a 80-year-old male brought into the ER at [facility] last night for evaluation of decreased oral intake increased lethargy and pressure ulcer on buttocks patient has been living at home with his daughter apparently patient not been eating or drinking for the last few days and the patient was noticed to have worsening of wound on his lower back and to the right hip area when asked specifically daughter mention has been there for a week or so patient has been mostly bedbound and hard for them to get him around patient be complaining of pain all over however not specifically he is unable to quantify it any further no nausea no vomiting or diarrhea has been reported patient on arrival to the ER was afebrile patient did have elevated white count of 31.6 repeat is 29.9, patient also noticed to have elevated BUN/creatinine liver enzymes are normal patient did have a positive UA patient be started on Zosyn and vancomycin admitted to the hospital infectious was consulted for evaluation of right hip and sacral pressure ulcer and concern for secondary cellulitis Review of Systems Positive point has been mentioned HPI rest the systems negative Past Medical History Past Medical History: Unable to Obtain, Dementia History of Any Multi-Drug Resistant Organisms: Unobtainable Past Surgical History: Unable to Obtain Past Psychological History: Unable to Obtain Past Alcohol Use History: Unable to Obtain Past Drug Use History: Unable to Obtain Medications and Allergies Home Medications Medication Instructions Recorded Confirmed Type Aspirin EC [Ecotrin] 650 mg PO BID PRN 08/25/20 08/25/20 History Multivitamins, Thera [Multivitamin 1 tab PO DAILY 08/25/20 08/25/20 History (formulary)] Naproxen Sodium [Aleve] 220 mg PO DAILY PRN 08/25/20 08/25/20 History [place]-3 Fatty Acids/Fish Oil [Fish 1 cap PO DAILY 08/25/20 08/25/20 History Oil 1,000 mg Softgel] Allergies Allergy/AdvReac Type Severity Reaction Status Date / Time No Known Allergies Allergy Verified 08/25/20 08:26 Physical Exam Vitals: Vital Signs Temp Pulse Pulse Resp BP BP Pulse Ox 08/25/20 11:53 134 H 18 102/76 92 L 08/25/20 08:00 98.4 F 144 H 18 122/77 92 L 08/25/20 06:00 78 16 107/69 96 08/25/20 04:00 79 16 111/64 96 08/25/20 01:40 112/71 08/25/20 01:00 110/64 08/25/20 00:00 110/64 97 08/24/20 23:38 69 15 108/70 99 08/24/20 23:00 89 14 96/78 100 08/24/20 22:38 97.7 F 84 15 88/55 98 08/24/20 22:03 88/66 08/24/20 21:06 75 15 105/58 98 08/24/20 20:44 97.3 F L 08/24/20 19:53 103 H 18 105/68 96 Intake and Output 08/24/20 08/25/20 08/25/20 22:59 06:59 14:59 Output Total 3300 Balance -3300 Output: Urine 3300 Straight 3300 Other: Weight 49.895 kg GENERAL DESCRIPTION: Elderly male lying in bed, no distress. No tachypnea or accessory muscle of respiration use. HEENT: Shows Pallor , no scleral icterus. Oral mucous membrane is dry. No pharyn geal erythema or thrush NECK: Trachea central, no thyromegaly. LUNGS: Unlabored breathing. Decreased breath sound at the base. No wheeze or crackle. HEART: S1, S2, regular rate and rhythm. No loud murmur ABDOMEN: Soft, no tenderness , guarding or rigidity, no organomegaly EXTREMITIES: No edema of feet. SKIN: Patient did have unstageable pressure ulcer to the sacrum and the right hip area right hip is worse with some surrounding redness no foul-smelling drainage. NEUROLOGICAL: The patient is lethargic orientation could not determine Results CBC & Chem 7: 08/26/20 07:19 08/26/20 07:19 Labs: Abnormal Lab Results - Last 24 Hours (Table) 08/24/20 08/24/20 08/25/20 Range/Units 22:19 22:19 01:20 WBC 31.6 H (3.8-10.6) k/uL RBC 3.58 L (4.30-5.90) m/uL Hgb 11.2 L (13.0-17.5) gm/dL Hct 34.1 L (39.0-53.0) % Neutrophils # 30.3 H (1.3-7.7) k/uL Lymphocytes # 0.5 L (1.0-4.8) k/uL APTT (22.0-30.0) sec Sodium 124 L (137-145) mmol/L Chloride 89 L (98-107) mmol/L BUN 47 H (9-20) mg/dL Creatinine 1.27 H (0.66-1.25) mg/dL Glucose 109 H (74-99) mg/dL Calcium (8.4-10.2) mg/dL Total Bilirubin 1.4 H (0.2-1.3) mg/dL Total Protein 5.7 L (6.3-8.2) g/dL Albumin 2.6 L (3.5-5.0) g/dL Urine Protein Trace H (Negative) Ur Leukocyte Esterase Trace H (Negative) Urine RBC 26 H (0-5) /hpf Urine WBC 11 H (0-5) /hpf Calcium Oxalate Crystal Occasional H (None) /hpf Hyaline Casts 282 H (0-2) /lpf Urine Mucus Rare H (None) /hpf 08/25/20 08/25/20 08/25/20 Range/Units 07:15 07:15 07:19 WBC 29.9 H (3.8-10.6) k/uL RBC 3.29 L (4.30-5.90) m/uL Hgb 10.2 L (13.0-17.5) gm/dL Hct 32.3 L (39.0-53.0) % Neutrophils # 28.1 H (1.3-7.7) k/uL Lymphocytes # 0.9 L (1.0-4.8) k/uL APTT 35.1 H (22.0-30.0) sec Sodium 126 L (137-145) mmol/L Chloride 96 L (98-107) mmol/L BUN 47 H (9-20) mg/dL Creatinine (0.66-1.25) mg/dL Glucose (74-99) mg/dL Calcium 7.9 L (8.4-10.2) mg/dL Total Bilirubin 1.7 H (0.2-1.3) mg/dL Total Protein 5.7 L (6.3-8.2) g/dL Albumin 2.4 L (3.5-5.0) g/dL Urine Protein (Negative) Ur Leukocyte Esterase (Negative) Urine RBC (0-5) /hpf Urine WBC (0-5) /hpf Calcium Oxalate Crystal (None) /hpf Hyaline Casts (0-2) /lpf Urine Mucus (None) /hpf Microbiology - Last 24 Hours (Table) 08/25/20 01:20 Urine Culture - Preliminary Urine,Clean Catch Assessment and Plan Assessment: -patient with elevated white count which is likely multifactorial in this patient who did have a unstageable pressure ulcer to the right hip with concern for some secondary cellulitis patient also have a evidence of UTI may be contributing to his elevated white count, patient was noticed to have congested cough but no chest x-ray has been done to rule out pneumonia (1) Pressure ulcer of right hip, unstageable Current Visit: Yes Status: Acute Code(s): L89.210 - PRESSURE ULCER OF RIGHT HIP, UNSTAGEABLE SNOMED Code(s): 088180520 (2) Sepsis Current Visit: Yes Status: Acute Code(s): A41.9 - SEPSIS, UNSPECIFIED ORGANISM SNOMED Code(s): 88340726 Plan: 1-we will obtain a chest x-ray PA and lateral 2-vancomycin pharmacy to dose target trough of 15 while watching his kidney function and vancomycin trough closely 3-discontinue Zosyn start cefepime 2 g every 12 [facility] and keep the area of the pressure We will follow on clinical condition and cultures to further adjust medication if needed Thank you for this consultation will follow this patient along with you Time with Patient: Greater than 30
[2020-08-26] MEDS: VANCOMYCIN 1,250 MG in SODIUM CHLORIDE 0.9% 250 ML IVPB SCH (14:00)
--- NOTE | 2020-08-26 14:38 | XR ---
EXAMINATION TYPE: XR chest 1V portable DATE OF EXAM: 08/26/2020 COMPARISON: NONE HISTORY: Pneumonia TECHNIQUE: frontal view of the chest is obtained on 2 images. FINDINGS: Patient is rotated. Heart size is normal. Aorta shows dense atherosclerotic calcification. Retrocardiac density obscures the medial aspect of the left hemidiaphragm. Interstitium is increased . Prominent lung volume may be indicative of underlying COPD. There is no evident pneumothorax. Bone mineralization is reduced. Carotid artery calcifications are suspected. Posterior right third rib is somewhat narrowed in caliber possibly due to prior surgery. Patchy density also present at the right lung base. IMPRESSION: There may be lower lobe pneumonia versus atelectasis, possible associated effusion. Diff icult to exclude interstitial edema. Follow-up is recommended.
[2020-08-26] MEDS: CEFEPIME 2 GM in SODIUM CHLORIDE 0.9% 100 ML IVPB SCH (20:15)
[2020-08-26] MEDS ORDERED: PIPERACILLIN-TAZOBACTAM 3.375 GM in SODIUM CHLORIDE 0.9% 100 ML IVPB SCH (22:00)
[2020-08-27] MEDS ORDERED: NALOXONE 0.4 MG/ML 1 ML VIAL IV PRN (01:28)
[2020-08-27] MEDS ORDERED: ONDANSETRON 4 MG/2 ML VIAL IVP PRN (01:28)
--- NOTE | 2020-08-27 01:36 | PN ---
PROGRESS NOTE DATE OF SERVICE: 08/26/2020 REASON FOR FOLLOWUP: 1. Infected pressure ulcer. 2. UTI and a question of pneumonia. INTERVAL HISTORY: The patient is currently afebrile. The patient remains to be lethargic and sleepy unable to provide any history. Hemodynamically stable, not on any pressor support. No vomiting or diarrhea has been reported. PHYSICAL EXAMINATION: Blood pressure is 130/62 with a pulse of 62, temperature 98.3. He is 100% on 6 L nasal cannula. General description is an elderly male lying in bed in no distress. RESPIRATORY SYSTEM: Unlabored breathing, decreased breath sounds at the bases. No wheeze. HEART: S1, S2. Regular rate and rhythm. ABDOMEN: Soft, no tenderness. LEGS: No edema of feet. LABS: Hemoglobin 9.5, white count 22.5, BUN of 39, creatinine 0.90. Blood culture with Proteus. DIAGNOSTIC IMPRESSION AND PLAN: Patient with elevated white count and Proteus bacteremia, multifactorial with likely component of urinary tract infection, infected right hip pressure ulcer. The patient is covered with cefepime. Vancomycin to continue. Will monitor clinical course closely. MMODL / IJN: [id number] /
[2020-08-27] MEDS: SODIUM CHLORIDE 0.9% 1,000 ML IV SCH ×2 (05:21→14:44)
[2020-08-27] MEDS: VANCOMYCIN 1,250 MG in SODIUM CHLORIDE 0.9% 250 ML IVPB SCH ×2 (05:21→17:25)
[2020-08-27] MEDS: CEFEPIME 2 GM in SODIUM CHLORIDE 0.9% 100 ML IVPB SCH ×2 (08:17→20:15)
[2020-08-27] MEDS: HEPARIN SODIUM,PORCINE 5,000 UNIT/ML 1 ML VIAL SQ SCH ×2 (08:18→20:15)
[2020-08-27 10:29] LABS: African American GFR (CKD) >90 (>60 ml/min/1.73 sqM); Anion Gap 10 mmol/L; Basophils % (A) 0 %; Blood Urea Nitrogen 25 mg/dL (9-20); Calcium 7.8 mg/dL (8.4-10.2); Carbon Dioxide 19 mmol/L (22-30); Chloride 109 mmol/L (98-107); Eosinophils # (A) 0.1 k/uL (0-0.7); Eosinophils % (A) 0 %; Glucose 68 mg/dL (74-99); HCT 31.8 % (39.0-53.0); HGB 9.8 gm/dL (13.0-17.5); Hypochromasia Slight; Lymphocytes # (A) 0.7 k/uL (1.0-4.8); Lymphocytes % (A) 3 %; MCH 30.8 pg (25.0-35.0); MCHC 30.9 g/dL (31.0-37.0); MCV 99.9 fL (80.0-100.0); Macrocytosis Slight; Magnesium 1.8 mg/dL (1.6-2.3); Mean Platelet Volume 7.6; Monocytes # (A) 0.3 k/uL (0-1.0); Monocytes % (A) 1 %; Neutrophils # (A) 24.2 k/uL (1.3-7.7); Neutrophils % (A) 96 %; Non-African American GFR(CKD) >90 (>60 ml/min/1.73 sqM); Platelet Count 356 k/uL (150-450); Potassium 3.3 mmol/L (3.5-5.1); RBC 3.18 m/uL (4.30-5.90); Sodium 138 mmol/L (137-145); WBC 25.4 k/uL (3.8-10.6)
[2020-08-27] MEDS ORDERED: Magnesium Replacement Protocol 1 EACH MISC MISCELLANE PRN (10:53)
[2020-08-27] MEDS ORDERED: Potassium Replacement Protocol 1 EACH MISC MISCELLANE PRN (10:53)
[2020-08-27] MEDS: DILTIAZEM 125 MG in SODIUM CHLORIDE 0.9% 100 ML IV SCH (11:26)
[2020-08-27] MEDS: POTASSIUM CHLORIDE 10 MEQ in WATER FOR INJECTION 1 100ML.BAG IVPB SCH ×4 (12:15→16:14)
[2020-08-27] MEDS ORDERED: VANCOMYCIN TROUGH DUE 1 EACH MISC MISCELLANE ONE (16:00)
[2020-08-27] MEDS: MAGNESIUM SULFATE-D5W PMX 1 GM in DEXTROSE/WATER 1 100ML.BAG IVPB SCH ×2 (17:26→19:01)
--- NOTE | 2020-08-27 22:33 | P.PN ---
Subjective This is a pleasant 80 years old male with unknown past medical history, patient could not provide information so it was taken from the records, staff and daughter. As per my discussion with his daughter Ms. Dougherty at [phone] feet [phone], she told me his in 2011, and since then he started deteriorating, his heavy smoker since he was 9 years old, he used to be heavy drinker, however gradually he got degenerated, he had memory problems, he needed help with feeding, with cleaning, sometimes wears diapers but he told the daughter he just came up from the bathroom which was not true, sometimes he talks with full sentences and sometimes he talks with a few warts or 1-2 words, he didn't have good quality of life. He refuses to go to doctors and he does not trust them as per daughter, usually when he got sick he got to the hospital and it got treated for possible pneumonia or UTI or others go to rehab where he sees doctors and then once he goes home he become noncompliant and he does not follow up with physicians. Because of this patient has 2 daughters and both of them they wanted the patient to go for hospice, Ms. Dougherty was trying to find a place to have accepted for end of life care, she called hospice yesterday in the morning directly by herself because they thought he should be under hospice care. Eventually the port him to the emergency room. Patient looks thin and emaciated, continue his first name but he could not provide information, he does not look in distress. He has a Ray catheter with hematuria. He has multiple pressure ulcers. he is tachycardic and hypoxic with saturations 92% on 6 L oxygen Labs, afebrile. Labs showed leukocytosis of 31.6 and 20 9.9K, anemia with hemoglobin of 10.2, hyponatremia of 124 at 126, acute kidney injury with 1.2 and 1.1. Urinalysis is suspicious for infection. EKG showing A. fib with heart rate of 91 in the emergency room patient was started on heparin drip, Zosyn and vancomycin and normal saline 08/26/2020 Patient still confused, does not respond to stimuli, does not follow commands, at times he can say his name but nothing else. He looks weak and cachectic, he is contracted in his lower extremity and he has multiple ulcers in his back, scrotum and ankles. Vitals are stable, still on 6 L oxygen via nasal cannula and is saturating 99% WBC is 20 2.5K, sodium is 132. He has a Ray catheter was little hematuria, his hemoglobin 9.5 today compared to 10.2 yesterday. Distal on heparin drip, Cardizem, Zosyn and IV vancomycin. Blood cultures positive for Proteus with sensitivities pending 08/27/20 patient is known to be noncompliant and does not follow up with , admitted for altered mentation with possible sepsis secondary to pressure ulcers, and there is also possible pneumonia. When I saw him today patient was more awake, but somewhat confused about his surrounding. Patient continue with broad-spectrum antibiotic, infectious disease on the case I had a long discussion with the patient and daughter at bedside, she states that her father was eating pizza and fast food last month however today he could eat only little bit, so we will not start parenteral nutrition for now and see if he might improve. The daughter wants her father to be treated for a few days and no improvement then she might consider hospice, continue with treatment, patient is currently on antibiotic, gentle hydration and calcium channel blockers for his A. fib with cardiology on the case as well. Hyponatremia improving. Blood culture drawn Proteus and infectious disease on the case. Patient hemodynamically stable Review of system: N/a, patient could not participate due to his altered mentation Active Medications Generic Name Dose Route Start Last Admin Trade Name Freq PRN Reason Stop Dose Admin Acetaminophen 650 mg 08/24/20 23:49 Acetaminophen Tab 325 Mg Tab PO Q6HR PRN Mild Pain or Fever > 100.5 Heparin Sodium (Porcine) 5,000 unit 08/27/20 09:00 08/27/20 20:15 Heparin Sodium,Porcine 5,000 Unit/Ml 1 Ml Vial SQ 5,000 unit Q12HR CONSUELO Administration Hydromorphone HCl 0.5 mg 08/24/20 23:49 Hydromorphone 0.5 Mg/0.5 Ml Syringe IVP Q3HR PRN Moderate Pain Sodium Chloride 1,000 mls @ 75 mls/hr 08/24/20 23:15 08/27/20 14:44 Saline 0.9% IV 75 mls/hr .[id number] CONSUELO Administration Diltiazem HCl 125 mg/ Sodium 125 mls @ 5 mls/hr 08/25/20 10:45 08/27/20 11:26 Chloride IV 5 mg/hr .Q24H CONSUELO 5 mls/hr Administration 5 MG/HR Vancomycin HCl 1,250 mg/ 250 mls @ 125 mls/hr 08/27/20 17:00 08/27/20 17:25 Sodium Chloride IVPB 125 mls/hr Q12H CONSUELO Administration Ceftriaxone Sodium 2 gm/ 50 mls @ 100 mls/hr 08/28/20 09:00 Sodium Chloride IVPB Q24HR CONSUELO Lorazepam 0.5 mg 08/25/20 15:40 Lorazepam 2 Mg/Ml Inj IV Q6HR PRN Mild Anxiety Lorazepam 1 mg 08/25/20 15:44 08/25/20 15:50 Lorazepam 2 Mg/Ml Inj IV 1 mg Q6HR PRN Administration Moderate Anxiety Miscellaneous Information 1 each 08/27/20 10:53 Magnesium Replacement Protocol 1 Each Misc MISCELLANE DAILY PRN Per Protocol Protocol Miscellaneous Information 1 each 08/27/20 10:53 Potassium Replacement Protocol 1 Each Misc MISCELLANE DAILY PRN Per Protocol Protocol Naloxone HCl 0.2 mg 08/27/20 01:28 Naloxone 0.4 Mg/Ml 1 Ml Vial IV Q2M PRN Opioid Reversal Ondansetron HCl 4 mg 08/27/20 01:28 Ondansetron 4 Mg/2 Ml Vial IVP Q8HR PRN Nausea And Vomiting Objective - Vital Signs Vital signs: Vital Signs Temp 96.3 F L 08/27/20 14:59 Pulse 63 08/27/20 14:59 Resp 18 08/27/20 14:59 BP 147/68 08/27/20 14:59 Pulse Ox 100 08/27/20 14:59 Intake & Output 08/27/20 08/27/20 08/28/20 06:59 18:59 06:59 Intake Total 237 Output Total 750 525 Balance -750 -288 Weight 60 kg Intake: Oral 237 Output: Urine 750 525 Other: Voiding Method Indwelling Catheter Indwelling Catheter - Exam -GENERAL: The patient is alert and oriented to time, place and person partially, looks lethargic, and later on the day become less responsive, but as his mentation is fluctuates and off that area not in any acute distress. Cachectic and thin HEENT: Pupils are round and equally reacting to light. EOMI. No scleral icterus. No conjunctival pallor. Normocephalic, atraumatic. No pharyngeal erythema. No thyromegaly. CARDIOVASCULAR: S1 and S2 present. No murmurs, rubs, or gallops. PULMONARY: Chest is clear to auscultation, no wheezing or crackles. -ABDOMEN: Soft, nontender, nondistended, normoactive bowel sounds. No palpable organomegaly. Ray catheter is in place with hematuria -MUSCULOSKELETAL: No joint swelling or deformity. Multiple pressure ulcers, including back, scrotum and bilateral ankles. The ulcer in the middle back is large and has big mcginnis -EXTREMITIES: No cyanosis, clubbing, or pedal edema. Contracted lower extremities NEUROLOGICAL: Gross neurological examination did not reveal any focal deficits. SKIN: No rashes. No petechiae - Labs CBC & Chem 7: 08/27/20 09:56 08/27/20 09:56 Labs: Abnormal Lab Results - Last 24 Hours (Table) 08/27/20 08/27/20 Range/Units 09:56 09:56 WBC 25.4 H (3.8-10.6) k/uL RBC 3.18 L (4.30-5.90) m/uL Hgb 9.8 L (13.0-17.5) gm/dL Hct 31.8 L (39.0-53.0) % MCHC 30.9 L (31.0-37.0) g/dL Neutrophils # 24.2 H (1.3-7.7) k/uL Lymphocytes # 0.7 L (1.0-4.8) k/uL Potassium 3.3 L (3.5-5.1) mmol/L Chloride 109 H (98-107) mmol/L Carbon Dioxide 19 L (22-30) mmol/L BUN 25 H (9-20) mg/dL Creatinine 0.63 L (0.66-1.25) mg/dL Glucose 68 L (74-99) mg/dL Calcium 7.8 L (8.4-10.2) mg/dL Microbiology - Last 24 Hours (Table) 08/26/20 07:19 Blood Culture - Preliminary Blood No Growth after 24 hours 08/24/20 22:19 Blood Culture Gram Stain - Final Blood Blood Culture - Final Proteus vulgaris Assessment and Plan Assessment: sepsis Hyponatremia Multiple pressure ulcers Hematuria Atrial fibrillation Tachycardia Memory problem Cachexia and deconditioning, BMI is 14.9 Generalized weakness Acute kidney injury Noncompliance and adherence to therapy Plan: This is a pleasant 80 years old male presents with multiple problems including sepsis and hyponatremia and pressure ulcers and tachycardia. Continue with antibiotics as per infectious disease team, continue with calcium channel kirstie and gentle hydration. Follow-up repeat blood culture Labs and medication were reviewed.. Continue same treatment. Continue with symptomatic treatment. Resume home medication. Monitor lytes and vitals. DVT and GI prophylaxis. Further recommendations depends on the clinical course of the patient Prognosis is guarded Plan discussed with daughter and she agrees
--- NOTE | 2020-08-28 03:37 | PN ---
PROGRESS NOTE DATE OF SERVICE: 08/27/2020 REASON FOR FOLLOWUP: 1. Proteus mirabilis bacteremia. 2. Infected pressure ulcer. INTERVAL HISTORY: The patient is currently afebrile. The patient is noticed to be more awake and alert this morning, being fed by the speech therapist. No choking on food was noticed. No vomiting or any diarrhea. Patient denies any chest pain or cough. PHYSICAL EXAMINATION: Blood pressure 136/73 with a pulse of 75, temperature is 97.8. He is 100% on 2 L nasal cannula. General description is an elderly male up in the bed in no distress. RESPIRATORY SYSTEM: Unlabored breathing, clear to auscultation anteriorly. HEART: S1, S2. Regular rate and rhythm. ABDOMEN: Soft, no tenderness. LABS: Hemoglobin 9.8, white count 25.4, BUN of 25, creatinine 0.63. Vanco is 14.8. Blood culture is Proteus mirabilis. DIAGNOSTIC IMPRESSION AND PLAN: Patient with Proteus mirabilis bacteremia, concern for possible infected ulcer as urine is negative. Blood culture also now showing gram-positive cocci. The patient is covered with vancomycin. Blood cultures will be repeated to document clearance of bacteremia. We will switch cefepime to Rocephin to cover for the Proteus and local wound care per wound care team. Continue with supportive care. MMODL / IJN: [id number] /
[2020-08-28] MEDS: VANCOMYCIN 1,250 MG in SODIUM CHLORIDE 0.9% 250 ML IVPB SCH ×2 (05:25→16:08)
[2020-08-28] MEDS: HEPARIN SODIUM,PORCINE 5,000 UNIT/ML 1 ML VIAL SQ SCH ×2 (08:11→19:41)
[2020-08-28] MEDS: SODIUM CHLORIDE 0.9% 1,000 ML IV SCH ×2 (08:12→19:41)
[2020-08-28 11:23] LABS: Basophils % (A) 0 %; Eosinophils # (A) 0.1 k/uL (0-0.7); Eosinophils % (A) 0 %; HCT 30.3 % (39.0-53.0); HGB 9.6 gm/dL (13.0-17.5); Lymphocytes # (A) 0.7 k/uL (1.0-4.8); Lymphocytes % (A) 4 %; MCH 31.1 pg (25.0-35.0); MCHC 31.8 g/dL (31.0-37.0); MCV 97.8 fL (80.0-100.0); Mean Platelet Volume 7.1; Monocytes # (A) 0.4 k/uL (0-1.0); Monocytes % (A) 2 %; Neutrophils # (A) 17.2 k/uL (1.3-7.7); Neutrophils % (A) 93 %; Platelet Count 344 k/uL (150-450); RDW 14.1 % (11.5-15.5); WBC 18.5 k/uL (3.8-10.6)
[2020-08-28 11:42] LABS: African American GFR (CKD) >90 (>60 ml/min/1.73 sqM); Anion Gap 1 mmol/L; Blood Urea Nitrogen 16 mg/dL (9-20); Calcium 7.7 mg/dL (8.4-10.2); Carbon Dioxide 26 mmol/L (22-30); Chloride 110 mmol/L (98-107); Glucose 110 mg/dL (74-99); Magnesium 1.9 mg/dL (1.6-2.3); Non-African American GFR(CKD) >90 (>60 ml/min/1.73 sqM); Potassium 3.5 mmol/L (3.5-5.1); Sodium 137 mmol/L (137-145)
[2020-08-28 11:57] LABS: C Reactive Protein 153.2 mg/L (<10.0)
[2020-08-28] MEDS: DILTIAZEM 125 MG in SODIUM CHLORIDE 0.9% 100 ML IV SCH (12:24)
--- NOTE | 2020-08-28 16:03 | CDI ---
Documentation Clarification Form Date: 08/28/2020 03:50:32 PM From: Sima Dewey CCS, CCDS Admit Date: 08/24/2020 11:13:00 PM Patient Name: Kervin Martienz Visit Number: [id number] Discharge Date: ATTENTION: The Clinical Documentation Specialists (CDI) and [facility] Coding Staff appreciate your assistance in clarifying documentation. Please respond to the clarification below the line at the bottom and electronically sign. The CDI & [facility] Coding staff will review the response and follow-up if needed. Please note: Queries are made part of the Legal Health Record. If you have any questions, please contact the author of this message via ITS. Dr. Juventino Hughes. Sheet: Per the 08/25 History & Physical and subsequent documentation: "Cachexia & deconditioning, BMI is 14.9". History/Risk Factors: Dementia, Nicotine dependence, Alcohol use. Clinical Indicators: Presented to the ED on 08/24 with failure to thrive & altered mental status via EMS. Decreased oral intake, increased lethargy & pressure ulcers on the buttocks. Patient lives alone, questionable compliance. Current BMI: 18.6 LAB 08/24 Total Protein 5.7*, Albumin 2.6*. Dietary Consult ordered 08/25: Not appropriate for oral intake, unresponsive. Multiple wounds: Stage II right ankle, Coccyx & unstageable right hip. Wt 61.5 kg, Ht: 6 ft, BMI: 18.3. Underweight. Alliance body weight: 80.739. Pt is at 76% ideal body weight. Meeting 75% of estimated nutritional needs. Treatment: Oral supplements with diet advancement. IV fluid 500 mls @ 1000 mls/hr, IV Zosyn, IV fluid 500 mls @ 999 mls/hr, IV fluid 1,000 mls @ 75 mls/hr, IV Vancomycin, IV Heparin drip, IV Cardizem, IV Ativan, IV Cefepime. Possible transition to Hospice. In your professional opinion, can you please clarify if these findings signify one of the following conditions? Mild Protein-Calorie Malnutrition Moderate Protein-Calorie Malnutrition Severe Protein-Calorie Malnutrition Other condition, please specify Unable to determine (Last Revision: May 2019) Severe Protein-Calorie Malnutrition MTDD
[2020-08-28] MEDS: ACETAMINOPHEN TAB 325 MG TAB PO PRN (19:41)
--- NOTE | 2020-08-28 20:34 | XR ---
EXAMINATION TYPE: XR chest 1V portable DATE OF EXAM: 08/28/2020 COMPARISON: 08/26/2020 HISTORY: Fluid overload TECHNIQUE: 2 views FINDINGS: There is mild pulmonary congestion. There is some blunting of the costophrenic angles. Ther e are no hilar masses. Thoracic aorta is atheromatous. There are chest leads. IMPRESSION: There is evidence for congestive heart failure with pleural effusions. There is probably underlying emphysema. Pleural fluid increased compared to recent exam.
--- NOTE | 2020-08-28 20:50 | PN ---
PROGRESS NOTE DATE OF SERVICE: 08/28/2020 REASON FOR FOLLOW UP: 1. Proteus mirabilis and Gram-positive bacteremia. 2. Infected pressure ulcer. INTERVAL HISTORY: Patient is currently afebrile. He is slightly more awake and alert. Currently breathing comfortably. Denies having any chest pain or cough. No vomiting. No abdominal pain or diarrhea. PHYSICAL EXAMINATION: Blood pressure 172/77 with a pulse of 83, temperature 98.3. He is 99% on 2 L nasal cannula. General description is an elderly male lying in bed in no distress. Respiratory system: Unlabored breathing, clear to auscultation anteriorly. Heart S1, S2. Regular rate and rhythm. ABDOMEN: Soft, no tenderness. The dressing has been changed by the night nurse. No worsening reported. LABS: Hemoglobin is 9.6, white count is down to 18.5. Creatinine 0.50. Vancomycin level therapeutic 14.8. Blood culture with Proteus vulgaris. Repeat blood cultures with gram-positive ID sensitivities pending. DIAGNOSTIC IMPRESSION AND PLAN: Patient with polymicrobial bacteremia in this patient who did have a right hip infected pressure ulcer. The patient is currently covered with Rocephin and vancomycin to continue followup blood culture has been ordered. We will wait for them to finalize. Hospice may be better option. Continue local wound care as per wound care team. Continue supportive care. MMODL / IJN: [id number] /
[2020-08-28] MEDS ORDERED: FUROSEMIDE 10 MG/ML 4 ML VIAL IV STA (21:26)
[2020-08-29] MEDS ORDERED: FUROSEMIDE 10 MG/ML 2 ML VIAL IV ONE (00:01)
[2020-08-29] MEDS: VANCOMYCIN 1,250 MG in SODIUM CHLORIDE 0.9% 250 ML IVPB SCH ×2 (05:15→16:21)
[2020-08-29 08:34] LABS: Basophils % (A) 0 %; Eosinophils # (A) 0.1 k/uL (0-0.7); Eosinophils % (A) 1 %; HCT 30.9 % (39.0-53.0); HGB 9.7 gm/dL (13.0-17.5); Hypochromasia Slight; Lymphocytes # (A) 0.9 k/uL (1.0-4.8); Lymphocytes % (A) 7 %; MCHC 31.5 g/dL (31.0-37.0); MCV 98.4 fL (80.0-100.0); Mean Platelet Volume 7.5; Monocytes # (A) 0.3 k/uL (0-1.0); Monocytes % (A) 2 %; Neutrophils # (A) 10.5 k/uL (1.3-7.7); Neutrophils % (A) 89 %; Platelet Count 309 k/uL (150-450); RBC 3.14 m/uL (4.30-5.90); RDW 13.8 % (11.5-15.5); WBC 11.8 k/uL (3.8-10.6)
[2020-08-29 08:47] LABS: African American GFR (CKD) >90 (>60 ml/min/1.73 sqM); Anion Gap 1 mmol/L; Blood Urea Nitrogen 13 mg/dL (9-20); Calcium 7.3 mg/dL (8.4-10.2); Carbon Dioxide 31 mmol/L (22-30); Chloride 105 mmol/L (98-107); Glucose 98 mg/dL (74-99); Magnesium 1.6 mg/dL (1.6-2.3); Non-African American GFR(CKD) >90 (>60 ml/min/1.73 sqM); Potassium 3.1 mmol/L (3.5-5.1); Sodium 137 mmol/L (137-145)
[2020-08-29] MEDS ORDERED: Potassium Replacement Protocol 1 EACH MISC MISCELLANE PRN (08:54)
[2020-08-29] MEDS ORDERED: Magnesium Replacement Protocol 1 EACH MISC MISCELLANE PRN (08:55)
[2020-08-29] MEDS: HEPARIN SODIUM,PORCINE 5,000 UNIT/ML 1 ML VIAL SQ SCH ×2 (09:01→21:47)
[2020-08-29] MEDS: POTASSIUM CHLORIDE 10 MEQ in WATER FOR INJECTION 1 100ML.BAG IVPB SCH ×4 (09:02→18:18)
[2020-08-29] MEDS ORDERED: VANCOMYCIN TROUGH DUE 1 EACH MISC MISCELLANE ONE (16:00)
[2020-08-29] MEDS: DILTIAZEM 125 MG in SODIUM CHLORIDE 0.9% 100 ML IV SCH (16:02)
[2020-08-29] MEDS: MAGNESIUM SULFATE-D5W PMX 1 GM in DEXTROSE/WATER 1 100ML.BAG IVPB SCH ×2 (16:02→18:15)
--- NOTE | 2020-08-29 18:32 | P.PN ---
Subjective Progress Note Date: 08/29/20 Principal diagnosis: Polymicrobial bacteremia Infected right hip ulcer Pneumonia UTI Sepsis 08/29/2020 Patient is seen and evaluated in room at bedside; he is more awake and alert this morning and breathing comfortably Vital signs are reviewed and are stable; labs are reviewed Patient remains on IV Rocephin and vancomycin with ID following and recommending to continue current medication; wound care is consulted Objective - Vital Signs Vital signs: Vital Signs Temp 98.2 F 08/29/20 08:00 Pulse 73 08/29/20 08:00 Resp 18 08/29/20 08:00 BP 134/65 08/29/20 08:00 Pulse Ox 97 08/29/20 08:00 Intake & Output 08/28/20 08/29/20 08/29/20 18:59 06:59 18:59 Intake Total 249.834 Output Total 0 1300 3300 Balance 249.834 -1300 -3300 Weight 57.6 kg Intake: Intake, IV Titration 249.834 Amount Diltiazem 125 mg In 124.834 Sodium Chloride 0.9% 100 ml @ 5 MG/HR 5 mls/hr IV .Q24H [facility] Rx#:[id number] Vancomycin 1,250 mg In 125 Sodium Chloride 0.9% 250 ml @ 125 mls/hr IVPB Q12H [facility] Rx#:[id number] Output: Urine 0 1300 3300 Other: Voiding Method Indwelling Catheter Indwelling Catheter Indwelling Catheter - Exam PHYSICAL EXAMINATION: GENERAL: The patient is alert and oriented x3, not in any acute distress. Well developed, well nourished. HEENT: Pupils are round and equally reacting to light. EOMI. No scleral icterus. No conjunctival pallor. Normocephalic, atraumatic. No pharyngeal erythema. No t hyromegaly. CARDIOVASCULAR: S1 and S2 present. No murmurs, rubs, or gallops. PULMONARY: Chest is clear to auscultation, no wheezing or crackles. ABDOMEN: Soft, nontender, nondistended, normoactive bowel sounds. No palpable organomegaly. MUSCULOSKELETAL: No joint swelling or deformity. EXTREMITIES: No cyanosis, clubbing, or pedal edema. NEUROLOGICAL: Gross neurological examination did not reveal any focal deficits. SKIN: No rashes. - Labs CBC & Chem 7: 08/29/20 08:15 08/29/20 08:15 Labs: Abnormal Lab Results - Last 24 Hours (Table) 08/29/20 08/29/20 Range/Units 08:15 08:15 WBC 11.8 H (3.8-10.6) k/uL RBC 3.14 L (4.30-5.90) m/uL Hgb 9.7 L (13.0-17.5) gm/dL Hct 30.9 L (39.0-53.0) % Neutrophils # 10.5 H (1.3-7.7) k/uL Lymphocytes # 0.9 L (1.0-4.8) k/uL Potassium 3.1 L (3.5-5.1) mmol/L Carbon Dioxide 31 H (22-30) mmol/L Creatinine 0.49 L (0.66-1.25) mg/dL Calcium 7.3 L (8.4-10.2) mg/dL Microbiology - Last 24 Hours (Table) 08/26/20 07:19 Blood Culture Gram Stain - Preliminary Blood Blood Culture - Preliminary Coagulase Negative Staph Assessment and Plan Assessment: sepsis Hyponatremia Multiple pressure ulcers Hematuria Atrial fibrillation Tachycardia Memory problem Cachexia and deconditioning, BMI is 14.9 Generalized weakness Acute kidney injury Noncompliance and adherence to therapy Plan: 80 years old male presents with multiple problems including sepsis and hyponatremia and pressure ulcers and tachycardia. Continue with antibiotics as per infectious disease team, continue with calcium channel kirstie and gentle hydration. Follow-up repeat blood culture Labs and medication were reviewed.. Continue same treatment. Continue with symptomatic treatment. Resume home medication. Monitor lytes and vitals. DVT and GI prophylaxis. Further recommendations depends on the clinical course of the patient Prognosis is guarded
--- NOTE | 2020-08-29 23:04 | PN ---
PROGRESS NOTE DATE OF SERVICE: 08/29/2020 REASON FOR FOLLOWUP: Proteus mirabilis bacteremia infected pressure ulcer. INTERVAL HISTORY: The patient is currently afebrile. The patient remains to be lethargic and unable to provide a reliable history. Oral intake remains to be poor. No vomiting or diarrhea reported by nursing staff or any worsening of his wound which was changed yesterday. PHYSICAL EXAMINATION: Blood pressure 164/100 with a pulse of 92, temperature a 100.1. He is 94% on room air. General description: The patient is an elderly male lying in bed in no distress. Respiratory system: Unlabored breathing, decreased breath sounds at the base, with no wheeze. Heart S1, S2. Regular rate and rhythm. ABDOMEN: Soft. No tenderness. Wound is currently dressed up. No obvious drainage on the dressing. LABS: Hemoglobin 9.4, white count 9.8, BUN of 13, creatinine 0.49. Vanco was 21.6. Blood culture with coagulase negative Staph and proteus. Follow up blood cultures have been negative. DIAGNOSTIC IMPRESSION AND PLAN: Patient with infected right heel pressure ulcer and evidence of gram-positive with component of bacteremia. Patient white count responded to the vancomycin, Rocephin to continue. Local care to continue per the wound care team and continue supportive care. MMODL / IJN: [id number] /
[2020-08-30] MEDS: ACETAMINOPHEN TAB 325 MG TAB PO PRN ×2 (00:13→22:10)
[2020-08-30 00:17] LABS: African American GFR (CKD) >90 (>60 ml/min/1.73 sqM); Anion Gap 0 mmol/L; Blood Urea Nitrogen 14 mg/dL (9-20); Calcium 7.2 mg/dL (8.4-10.2); Carbon Dioxide 32 mmol/L (22-30); Chloride 104 mmol/L (98-107); Glucose 115 mg/dL (74-99); Non-African American GFR(CKD) >90 (>60 ml/min/1.73 sqM); Potassium 3.5 mmol/L (3.5-5.1); Sodium 136 mmol/L (137-145)
[2020-08-30] MEDS: VANCOMYCIN 1,000 MG in SODIUM CHLORIDE 0.9% 250 ML IVPB SCH ×2 (04:56→17:13)
[2020-08-30 08:01] LABS: Basophils % (A) 0 %; Eosinophils # (A) 0.2 k/uL (0-0.7); Eosinophils % (A) 2 %; HCT 29.2 % (39.0-53.0); HGB 9.3 gm/dL (13.0-17.5); Lymphocytes # (A) 1.1 k/uL (1.0-4.8); Lymphocytes % (A) 11 %; MCH 30.8 pg (25.0-35.0); MCHC 31.7 g/dL (31.0-37.0); MCV 97.2 fL (80.0-100.0); Mean Platelet Volume 7.1; Monocytes # (A) 0.3 k/uL (0-1.0); Monocytes % (A) 3 %; Neutrophils # (A) 7.9 k/uL (1.3-7.7); Neutrophils % (A) 83 %; Platelet Count 277 k/uL (150-450); RBC 3.01 m/uL (4.30-5.90); RDW 13.6 % (11.5-15.5); WBC 9.5 k/uL (3.8-10.6)
[2020-08-30 08:19] LABS: African American GFR (CKD) >90 (>60 ml/min/1.73 sqM); Anion Gap -1 mmol/L; Blood Urea Nitrogen 12 mg/dL (9-20); Calcium 7.1 mg/dL (8.4-10.2); Carbon Dioxide 32 mmol/L (22-30); Chloride 105 mmol/L (98-107); Glucose 97 mg/dL (74-99); Magnesium 1.9 mg/dL (1.6-2.3); Non-African American GFR(CKD) >90 (>60 ml/min/1.73 sqM); Potassium 3.2 mmol/L (3.5-5.1); Sodium 136 mmol/L (137-145)
[2020-08-30] MEDS: HEPARIN SODIUM,PORCINE 5,000 UNIT/ML 1 ML VIAL SQ SCH ×2 (10:16→22:11)
[2020-08-30] MEDS: DILTIAZEM 125 MG in SODIUM CHLORIDE 0.9% 100 ML IV SCH (11:48)
[2020-08-30] MEDS ORDERED: Potassium Replacement Protocol 1 EACH MISC MISCELLANE PRN (15:44)
--- NOTE | 2020-08-30 16:06 | P.PN ---
Subjective Progress Note Date: 08/30/20 Principal diagnosis: Polymicrobial bacteremia Infected right hip ulcer Pneumonia UTI Sepsis 08/29/2020 Patient is seen and evaluated in room at bedside; he is more awake and alert this morning and breathing comfortably Vital signs are reviewed and are stable; labs are reviewed Patient remains on IV Rocephin and vancomycin with ID following and recommending to continue current medication; wound care is consulted 08/30/2020; patient is seen and evaluated in room at bedside Vital signs remained stable with a temperature of 97.6, pulse 112, blood pressure 123/70 and O2 saturation of 90% on 3 L Laboratory review shows a white blood count of 9.5, hemoglobin stable at 9.3, sodium of 136, potassium 3.2 with stable renal function Patient has polymicrobial bacteremia with staph and Proteus due to pneumonia, UTI and infected right hip ulcer; IDs following and recommending to continue with Rocephin and vancomycin as ordered; white blood count is improving and down to 9.5 this morning Objective - Vital Signs Vital signs: Vital Signs Temp 98.1 F 08/30/20 08:20 Pulse 60 08/30/20 08:20 Resp 18 08/30/20 08:20 BP 154/68 08/30/20 08:20 Pulse Ox 96 08/30/20 08:20 Intake & Output 08/29/20 08/30/20 08/30/20 18:59 06:59 18:59 Intake Total 245 750 711 Output Total 4600 600 Balance -4355 150 711 Weight 57.2 kg Intake: Intake, IV Titration 125 450 Amount Diltiazem 125 mg In 125 Sodium Chloride 0.9% 100 ml @ 5 MG/HR 5 mls/hr IV .Q24H [facility] Rx#:[id number] Magnesium Sulfate-D5w Pmx 100 1 gm In Dextrose/Water 1 100ml.bag @ 100 mls/hr IVPB Q1H [facility] Rx#: [id number] Potassium Chloride 10 meq 100 In Water For Injection 1 100ml.bag @ 100 mls/hr IVPB Q1HR [facility] Rx#: [id number] Vancomycin 1,000 mg In 250 Sodium Chloride 0.9% 250 ml @ 125 mls/hr IVPB Q12H [facility] Rx#:[id number] Oral 120 300 711 Output: Urine 4600 600 Other: Voiding Method Indwelling Catheter Indwelling Catheter Indwelling Catheter - Exam PHYSICAL EXAMINATION: GENERAL: The patient is alert and oriented x3, not in any acute distress. Well developed, well nourished. HEENT: Pupils are round and equally reacting to light. EOMI. No scleral icterus. No conjunctival pallor. Normocephalic, atraumatic. No pharyngeal erythema. No th yromegaly. CARDIOVASCULAR: S1 and S2 present. No murmurs, rubs, or gallops. PULMONARY: Chest is clear to auscultation, no wheezing or crackles. ABDOMEN: Soft, nontender, nondistended, normoactive bowel sounds. No palpable organomegaly. MUSCULOSKELETAL: No joint swelling or deformity. EXTREMITIES: No cyanosis, clubbing, or pedal edema. NEUROLOGICAL: Gross neurological examination did not reveal any focal deficits. SKIN: No rashes. - Labs CBC & Chem 7: 08/30/20 07:40 08/30/20 07:40 Labs: Abnormal Lab Results - Last 24 Hours (Table) 08/29/20 08/30/20 08/30/20 Range/Units 23:25 07:40 07:40 RBC 3.01 L (4.30-5.90) m/uL Hgb 9.3 L (13.0-17.5) gm/dL Hct 29.2 L (39.0-53.0) % Neutrophils # 7.9 H (1.3-7.7) k/uL Sodium 136 L 136 L (137-145) mmol/L Potassium 3.2 L (3.5-5.1) mmol/L Carbon Dioxide 32 H 32 H (22-30) mmol/L Creatinine 0.53 L 0.43 L (0.66-1.25) mg/dL Glucose 115 H (74-99) mg/dL Calcium 7.2 L 7.1 L (8.4-10.2) mg/dL Microbiology - Last 24 Hours (Table) 08/28/20 10:40 Blood Culture - Preliminary Blood No Growth after 24 hours Assessment and Plan Assessment: sepsis Hyponatremia Multiple pressure ulcers Hematuria Atrial fibrillation Tachycardia Memory problem Cachexia and deconditioning, BMI is 14.9 Generalized weakness Acute kidney injury Noncompliance and adherence to therapy Plan: 80 years old male presents with multiple problems including sepsis and hyponatremia and pressure ulcers and tachycardia. Continue with antibiotics as per infectious disease team, continue with calcium channel kirstie and gentle hydration. Follow-up repeat blood culture Labs and medication were reviewed.. Continue same treatment. Continue with symptomatic treatment. Resume home medication. Monitor lytes and vitals. DVT and GI prophylaxis. Further recommendations depends on the clinical course of the patient Prognosis is guarded
[2020-08-30] MEDS: POTASSIUM CHLORIDE 10 MEQ in WATER FOR INJECTION 1 100ML.BAG IVPB SCH ×4 (16:11→23:42)
[2020-08-31] MEDS: VANCOMYCIN 1,000 MG in SODIUM CHLORIDE 0.9% 250 ML IVPB SCH ×2 (05:17→16:58)
--- NOTE | 2020-08-31 06:08 | PN ---
PROGRESS NOTE DATE OF SERVICE: 08/30/2020 REASON FOR FOLLOWUP: 1. Proteus mirabilis urinary tract infection likely urinary source. 2. Staphylococcus auricularis bacteremia, possible contaminant. 3. Right hip infected pressure ulcer. INTERVAL HISTORY: The patient is currently afebrile. The patient is breathing comfortably. Denies having any chest pain or shortness of breath or cough. No nausea, no vomiting. No abdominal pain or worsening pain in the right hip area. PHYSICAL EXAMINATION: Blood pressure 155/97 with pulse of 64, temperature 98.1. He is 94% on room air. General description is an elderly male lying in bed in no distress. RESPIRATORY SYSTEM: Unlabored breathing, clear to auscultation anteriorly. HEART: S1, S2. Regular rate and rhythm. ABDOMEN: Soft, no tenderness. EXTREMITIES: No edema of feet. LABS: Hemoglobin is 9.3, white count 9.5, BUN of 12, creatinine 0.43. Blood culture repeat has been negative. DIAGNOSTIC IMPRESSION AND PLAN: 1. Patient with Proteus vulgaris bacteremia source is likely urinary in this patient who did have significant cloudy urine. Repeat UA will be ordered. Continue with Rocephin. 2. The patient with positive for Staphylococcus auricularis possible skin contaminant versus related to his right hip infected wound covered with vancomycin and white count has shown a downward trend and normalized. Local care to continue per wound care team and monitor clinical course closely. MMODL / IJN: [id number] /
[2020-08-31 08:00] LABS: Basophils % (A) 0 %; Eosinophils # (A) 0.1 k/uL (0-0.7); Eosinophils % (A) 0 %; HCT 31.8 % (39.0-53.0); HGB 10.2 gm/dL (13.0-17.5); Lymphocytes # (A) 1.4 k/uL (1.0-4.8); Lymphocytes % (A) 8 %; MCH 31.4 pg (25.0-35.0); MCHC 32.1 g/dL (31.0-37.0); MCV 97.6 fL (80.0-100.0); Mean Platelet Volume 7.2; Monocytes # (A) 0.5 k/uL (0-1.0); Monocytes % (A) 3 %; Neutrophils # (A) 16.1 k/uL (1.3-7.7); Neutrophils % (A) 88 %; Platelet Count 300 k/uL (150-450); RBC 3.26 m/uL (4.30-5.90); WBC 18.3 k/uL (3.8-10.6)
[2020-08-31 08:12] LABS: African American GFR (CKD) >90 (>60 ml/min/1.73 sqM); Anion Gap -1 mmol/L; Blood Urea Nitrogen 15 mg/dL (9-20); Calcium 7.3 mg/dL (8.4-10.2); Carbon Dioxide 32 mmol/L (22-30); Chloride 105 mmol/L (98-107); Glucose 95 mg/dL (74-99); Non-African American GFR(CKD) >90 (>60 ml/min/1.73 sqM); Sodium 136 mmol/L (137-145)
[2020-08-31] MEDS: HEPARIN SODIUM,PORCINE 5,000 UNIT/ML 1 ML VIAL SQ SCH ×2 (09:50→21:17)
[2020-08-31] MEDS: DILTIAZEM 125 MG in SODIUM CHLORIDE 0.9% 100 ML IV SCH (09:51)
[2020-08-31] MEDS ORDERED: QUEtiapine 25 MG TAB PO PRN (11:56)
--- NOTE | 2020-08-31 12:01 | P.PN ---
Subjective Polymicrobial bacteremia with staph auricularis and Proteus vulgaris Infected right hip ulcer Pneumonia UTI Sepsis 08/29/2020 Patient is seen and evaluated in room at bedside; he is more awake and alert this morning and breathing comfortably Vital signs are reviewed and are stable; labs are reviewed Patient remains on IV Rocephin and vancomycin with ID following and recommending to continue current medication; wound care is consulted 08/30/2020; patient is seen and evaluated in room at bedside Vital signs remained stable with a temperature of 97.6, pulse 112, blood pressure 123/70 and O2 saturation of 90% on 3 L Laboratory review shows a white blood count of 9.5, hemoglobin stable at 9.3, sodium of 136, potassium 3.2 with stable renal function Patient has polymicrobial bacteremia with staph and Proteus due to pneumonia, UTI and infected right hip ulcer; IDs following and recommending to continue with Rocephin and vancomycin as ordered; white blood count is improving and down to 9.5 this morning 08/31/2020 3. Blood cultures are negative patient white blood cell count went up again. A she is presently on vancomycin and ceftriaxone. Unable to obtain any history from the patient patient is alert oriented 1 patient does have advanced dementia patient will benefit from placement to prison. Discussed the same thing with the family. Review of systems: Unable to obtain All inpatient medications were reviewed and appropriate changes in these medications as dictated in the interval history and assessment and plan. Objective - Vital Signs Vital signs: Vital Signs Temp 98.0 F 08/31/20 08:00 Pulse 79 08/31/20 08:00 Resp 18 08/31/20 08:55 BP 162/81 08/31/20 08:00 Pulse Ox 93 L 08/31/20 08:55 Intake & Output 08/30/20 08/31/20 08/31/20 18:59 06:59 18:59 Intake Total 1994.833 110.25 Output Total 450 700 Balance 1544.833 -700 110.25 Weight 59.4 kg Intake: Intake, IV Titration 98.833 110.25 Amount Diltiazem 125 mg In 98.833 110.25 Sodium Chloride 0.9% 100 ml @ 5 MG/HR 5 mls/hr IV .Q24H [facility] Rx#:[id number] Oral 1896 Output: Urine 450 700 Other: Voiding Method Indwelling Catheter Indwelling Catheter Indwelling Catheter - Exam PHYSICAL EXAMINATION: GENERAL: The patient is alert and oriented x1, not in any acute distress. Well developed, well nourished. HEENT: Pupils are round and equally reacting to light. EOMI. No scleral icterus. No conjunctival pallor. Normocephalic, atraumatic. No pharyngeal erythema. No thyromegaly. CARDIOVASCULAR: S1 and S2 present. No murmurs, rubs, or gallops. PULMONARY: No wheezing on exam ABDOMEN: Soft, nontender, nondistended, normoactive bowel sounds. No palpable organomegaly. MUSCULOSKELETAL: No joint swelling or deformity. EXTREMITIES: No cyanosis, clubbing, or pedal edema. NEUROLOGICAL: Gross neurological examination did not reveal any focal deficits. SKIN: No rashes. - Labs CBC & Chem 7: 08/31/20 07:24 08/31/20 07:24 Labs: Abnormal Lab Results - Last 24 Hours (Table) 08/31/20 08/31/20 Range/Units 07:24 07:24 WBC 18.3 H (3.8-10.6) k/uL RBC 3.26 L (4.30-5.90) m/uL Hgb 10.2 L (13.0-17.5) gm/dL Hct 31.8 L (39.0-53.0) % Neutrophils # 16.1 H (1.3-7.7) k/uL Sodium 136 L (137-145) mmol/L Carbon Dioxide 32 H (22-30) mmol/L Creatinine 0.61 L (0.66-1.25) mg/dL Calcium 7.3 L (8.4-10.2) mg/dL Microbiology - Last 24 Hours (Table) 08/26/20 07:19 Blood Culture Gram Stain - Final Blood Blood Culture - Final Staphylococcus auricularis 08/28/20 10:40 Blood Culture - Preliminary Blood No Growth after 48 hours Assessment and Plan Plan: sepsis secondary to bacteremia from Proteus vulgaris as well as Staphylococcus species and patient on vancomycin and Rocephin for that Hyponatremia. It to be hypovolemic which resolved at this time -Atrial fibrillation with rapid ventricular rate patient has proximal A. fib but treatment out of A. fib patient is presently on Cardizem drip and anti- correlation which will be continued Multiple pressure ulcers Hematuria resolved Dementia advanced probably vascular dementia patient will benefit from placement in long-term facility will need to discuss that with the family members Cachexia and deconditioning, BMI is 14.9 Generalized weakness Acute kidney injury Noncompliance and adherence to therapy CODE STATUS: Full code.
[2020-08-31] MEDS: METOPROLOL TARTRATE 50 MG TAB PO SCH ×2 (15:06→21:17)
[2020-08-31 15:32] LABS: Amorphous Sediment,Urine Rare /hpf; Appearance,Urine Cloudy (Clear); Bacteria,Urine Occasional /hpf; Bilirubin,Urine Negative (Negative); Blood,Urine Moderate (Negative); Color,Urine Yellow; Glucose,Urine (UA) Negative (Negative); Ketones,Urine Negative (Negative); Leukocyte Esterase,Urine Trace (Negative); Mucus,Urine Rare /hpf; Nitrite,Urine Negative (Negative); PH, Urine 6.5 (5.0-8.0); Protein,Urine 1+ (Negative); RBC,Urine 4 /hpf (0-5); Specific Gravity,Urine 1.011 (1.001-1.035); WBC,Urine 6 /hpf (0-5)
--- NOTE | 2020-09-01 00:24 | PN ---
PROGRESS NOTE DATE OF SERVICE: 08/31/2020 REASON FOR FOLLOWUP: 1. Proteus mirabilis urinary tract infection source urinary. 2. Right infected pressure ulcer. INTERVAL HISTORY: The patient is currently afebrile. The patient is hemodynamically stable not on pressor support. FiO2 is currently stable. The patient is breathing comfortably. Denies having any chest pain or cough. No abdominal pain and no diarrhea has been reported. PHYSICAL EXAMINATION: Blood pressure 151/85 with a pulse of 77, temperature 98.6. He is 100% on 2 L nasal cannula. General description is an elderly male lying in bed in no distress. RESPIRATORY SYSTEM: Unlabored breathing, clear to auscultation anteriorly. HEART: S1, S2. Regular rate and rhythm. ABDOMEN: Soft, no tenderness. LABS: Hemoglobin 10.2, white count 18.3 today. Creatinine 0.61. DIAGNOSTIC IMPRESSION AND PLAN: The patient with Proteus vulgaris bacteremia source likely urinary, also Staphylococcus auricularis bacteremia. The patient's follow up blood cultures have been negative. On Rocephin and vancomycin. The patient's white count initially improved, did have slight worsening that will be monitored closely. Continue with supportive care. MMODL / IJN: [id number] /
[2020-09-01] MEDS ORDERED: VANCOMYCIN TROUGH DUE 1 EACH MISC MISCELLANE ONE (04:00)
[2020-09-01 04:51] LABS: HCT 30.4 % (39.0-53.0); HGB 9.6 gm/dL (13.0-17.5); Hypochromasia Slight; MCH 31.8 pg (25.0-35.0); MCHC 31.5 g/dL (31.0-37.0); MCV 100.8 fL (80.0-100.0); Macrocytosis Slight; Mean Platelet Volume 7.5; Platelet Count 271 k/uL (150-450); RBC 3.02 m/uL (4.30-5.90); RDW 13.9 % (11.5-15.5); WBC 12.1 k/uL (3.8-10.6)
[2020-09-01 05:06] LABS: African American GFR (CKD) >90 (>60 ml/min/1.73 sqM); Anion Gap 1 mmol/L; Blood Urea Nitrogen 15 mg/dL (9-20); Calcium 7.6 mg/dL (8.4-10.2); Carbon Dioxide 33 mmol/L (22-30); Chloride 104 mmol/L (98-107); Glucose 85 mg/dL (74-99); Non-African American GFR(CKD) >90 (>60 ml/min/1.73 sqM); Sodium 138 mmol/L (137-145)
[2020-09-01] MEDS: VANCOMYCIN 1,000 MG in SODIUM CHLORIDE 0.9% 250 ML IVPB SCH (05:50)
[2020-09-01 08:15] VITALS: TEMP 98.1
[2020-09-01] MEDS: HEPARIN SODIUM,PORCINE 5,000 UNIT/ML 1 ML VIAL SQ SCH (08:16)
[2020-09-01] MEDS: METOPROLOL TARTRATE 50 MG TAB PO SCH (08:16)
[2020-09-01 11:07] VITALS: BP 154/69; PULSE 65; RESP 16
--- NOTE | 2020-09-01 12:43 | P.DS ---
Providers Date of admission: 08/24/20 23:13 Attending physician: Kirsten Young Consults: 08/24/20 23:52 Consult Physician Routine Consulting Provider: Kanu Bridges Consult Reason/Comments: sepsis; pressure ulcers Do you want consulting provider notified?: Yes 08/25/20 00:19 Consult Physician Routine Consulting Provider: [facility] Consult Reason/Comments: New onset afib Do you want consulting provider notified?: Yes Primary care physician: Stated None Hospital Course: bacteremia with Proteus vulgaris, staph auricularis bacteremia is a contamination Infected right hip ulcer Pneumonia UTI Sepsis 08/29/2020 Patient is seen and evaluated in room at bedside; he is more awake and alert this morning and breathing comfortably Vital signs are reviewed and are stable; labs are reviewed Patient remains on IV Rocephin and vancomycin with ID following and recommending to continue current medication; wound care is consulted 08/30/2020; patient is seen and evaluated in room at bedside Vital signs remained stable with a temperature of 97.6, pulse 112, blood pressure 123/70 and O2 saturation of 90% on 3 L Laboratory review shows a white blood count of 9.5, hemoglobin stable at 9.3, sodium of 136, potassium 3.2 with stable renal function Patient has polymicrobial bacteremia with staph and Proteus due to pneumonia, UTI and infected right hip ulcer; IDs following and recommending to continue with Rocephin and vancomycin as ordered; white blood count is improving and down to 9.5 this morning 08/31/2020 3. Blood cultures are negative patient white blood cell count went up again. A she is presently on vancomycin and ceftriaxone. Unable to obtain any history from the patient patient is alert oriented 1 patient does have advanced dementia patient will benefit from placement to detention. Discussed the same thing with the family. 09/01/2020 Patient is at his baseline patient does have dementia overall prognosis is poor but fairly clinically stable at this time will be discharged to subacute rehabilitation patient will need wound care. Staphylococcal bacteria anemia is a contamination will not require any antibiotics for that patient has a bacteremia with the Proteus vulgaris and patient will be discharged on 10 more days of Cipro completing 14 day therapy for bacteremia. Patient will need wound care and will need to follow up with in the wound clinic. Patient was a valid by cardiology was on Cardizem and less today because of tachycardia which aspirin rhythm was sinus tachycardia as the cardiology to review remaining stable since his admission and if it turns out to be sinus tach cardia patient will not require any anticoagulation. Patient is in A. fib during this time will require anti-correlation at the time but considering his advanced dementia that appropriate need to basis by cardiology. PHYSICAL EXAMINATION: GENERAL: The patient is alert and oriented x1, not in any acute distress. Well developed, well nourished. HEENT: Pupils are round and equally reacting to light. EOMI. No scleral icterus. No conjunctival pallor. Normocephalic, atraumatic. No pharyngeal erythema. No thyromegaly. CARDIOVASCULAR: S1 and S2 present. No murmurs, rubs, or gallops. PULMONARY: No wheezing on exam ABDOMEN: Soft, nontender, nondistended, normoactive bowel sounds. No palpable organomegaly. MUSCULOSKELETAL: No joint swelling or deformity. EXTREMITIES: No cyanosis, clubbing, or pedal edema. NEUROLOGICAL: Gross neurological examination did not reveal any focal deficits. SKIN: No rashes. Assessment and Plan Plan: sepsis secondary to bacteremia from Proteus vulgaris and Staphylococcus species in the blood is a contamination Hyponatremia. It to be hypovolemic which resolved at this time -Sinus tachycardia improved now Multiple pressure ulcers Hematuria resolved Dementia advanced probably vascular dementia is being discharged to long-term facility Cachexia and deconditioning, BMI is 14.9 Generalized weakness Acute kidney injury Noncompliance and adherence to therapy CODE STATUS: Full code. Patient Condition at Discharge: Serious Plan - Discharge Summary Discharge Rx Participant: No New Discharge Prescriptions: New Metoprolol Tartrate [Lopressor] 50 mg PO BID tab Famotidine [Pepcid] 10 mg PO BID #10 tab Acetaminophen Tab [Tylenol] 650 mg PO Q6HR PRN tab PRN Reason: Mild Pain Or Fever > 100.5 Ciprofloxacin HCl [Cipro] 500 mg PO BID 10 Days #20 tab Continue [place]-3 Fatty Acids/Fish Oil [Fish Oil 1,000 mg Softgel] 1 cap PO DAILY Naproxen Sodium [Aleve] 220 mg PO DAILY PRN PRN Reason: Pain Multivitamins, Thera [Multivitamin (formulary)] 1 tab PO DAILY Discontinued Aspirin EC [Ecotrin] 650 mg PO BID PRN PRN Reason: Pain Discharge Medication List Multivitamins, Thera [Multivitamin (formulary)] 1 tab PO DAILY 08/25/20 [History] Naproxen Sodium [Aleve] 220 mg PO DAILY PRN 08/25/20 [History] [place]-3 Fatty Acids/Fish Oil [Fish Oil 1,000 mg Softgel] 1 cap PO DAILY 08/25/20 [History] Acetaminophen Tab [Tylenol] 650 mg PO Q6HR PRN tab 09/01/20 [Rx] Ciprofloxacin HCl [Cipro] 500 mg PO BID 10 Days #20 tab 09/01/20 [Rx] Famotidine [Pepcid] 10 mg PO BID #10 tab 09/01/20 [Rx] Metoprolol Tartrate [Lopressor] 50 mg PO BID tab 09/01/20 [Rx] Follow up Appointment(s)/Referral(s): Lino Mack MD [STAFF PHYSICIAN] - 1-2 Days Discharge Disposition: TRANSFER TO SNF/ECF
--- NOTE | 2020-09-01 13:04 | XR ---
EXAMINATION TYPE: XR chest 1V DATE OF EXAM: 09/01/2020 COMPARISON: 08/28/2020 HISTORY: Shortness of breath TECHNIQUE: Single frontal view of the chest is obtained. FINDINGS: Hyperinflation with changes suggestive of COPD. Bilateral infiltrate and pleural effusion. No pneumothorax. Chronic rib deformities are seen. Atherosclerotic change of the aorta. IMPRESSION: 1. Bilateral infiltrate and pleural effusion correlate for CHF superimposed on a background of COPD. No significant interval change.
--- NOTE | 2020-09-01 15:37 | PN ---
PROGRESS NOTE DATE OF SERVICE: 09/01/2020 REASON FOR FOLLOWUP: Proteus mirabilis bacteremia, possible UTI and right infected wound. INTERVAL HISTORY: The patient is currently afebrile. The patient is breathing comfortably. Patient denies having any chest pain. No shortness of breath. No abdominal pain. Pain to the right hip is currently improved. PHYSICAL EXAMINATION: Blood pressure 132/86, pulse of 69, temperature 98.1, he is 100% 2 L nasal cannula. General description is an elderly male lying in bed in no distress. RESPIRATORY SYSTEM: Unlabored breathing, decreased breath sounds in the base, with no wheeze. HEART: S1, S2. Regular rate and rhythm. ABDOMEN: Soft, no tenderness. LABS: Hemoglobin is 9.8, white count 0.1, creatinine 0.70. Blood culture repeat has been negative. DIAGNOSTIC IMPRESSION AND PLAN: Patient Proteus monitor clinical and source is likely UTI infected right hip: The patient finishing therapy with oral Cipro x10 days. Local care per the Wound Care Team. Family at the bedside, their questions were answered. MMODL / IJN: [id number] /
[2020-09-01] MEDS ORDERED: VANCOMYCIN 1,000 MG in SODIUM CHLORIDE 0.9% 250 ML IVPB SCH (22:00)
== END 2020-09-01 16:09 | DRG 871 ==
LOC: EC 19:51 → 4SSUR 23:13 → 3SCARD 08-25 01:22
PROVIDERS: ADMIT Internal Medicine; ATTEND Internal Medicine
DX: A41.50 Gram-negative sepsis, unspecified (principal); J18.9 Pneumonia, unspecified organism; E43 Unspecified severe protein-calorie malnutrition; N39.0 Urinary tract infection, site not specified; E87.1 Hypo-osmolality and hyponatremia; I48.19 Other persistent atrial fibrillation; L03.115 Cellulitis of right lower limb; N17.9 Acute kidney failure, unspecified; Z68.1 Body mass index [BMI] 19.9 or less, adult; R64 Cachexia; E86.0 Dehydration; F01.50 Vascular dementia, unspecified severity, without behavioral disturbance, psychotic disturbance, mood disturbance, and anxiety; Z87.891 Personal history of nicotine dependence; F41.9 Anxiety disorder, unspecified; G40.909 Epilepsy, unspecified, not intractable, without status epilepticus; D64.9 Anemia, unspecified; L89.152 Pressure ulcer of sacral region, stage 2; L89.210 Pressure ulcer of right hip, unstageable; L89.512 Pressure ulcer of right ankle, stage 2; L89.329 Pressure ulcer of left buttock, unspecified stage; L89.319 Pressure ulcer of right buttock, unspecified stage; L89.619 Pressure ulcer of right heel, unspecified stage; R09.02 Hypoxemia; R62.7 Adult failure to thrive; Z91.19 Patient's noncompliance with other medical treatment and regimen; E86.1 Hypovolemia; R40.2363 Coma scale, best motor response, obeys commands, at hospital admission; R40.2143 Coma scale, eyes open, spontaneous, at hospital admission; R40.2243 Coma scale, best verbal response, confused conversation, at hospital admission; Z79.82 Long term (current) use of aspirin; Z79.899 Other long term (current) drug therapy; I49.1 Atrial premature depolarization; R31.9 Hematuria, unspecified; Z74.01 Bed confinement status
CPT/HCPCS: 36415; 71045; 80048; 80053; 80202; 81001; 83605; 83735; 84443; 85025; 85027; 85610; 85730; 86140; 87040; 87077; 87086; 87186; 93005; 93306; 96365; 96366; 96367; 96368; 96375; 99285

== ENCOUNTER 2020-09-22 11:24 | Inpatient (IN) | payer MEDICARE, OTHER ==
[2020-09-22] MEDS ORDERED: SODIUM CHLORIDE 0.9% 1,000 ML IV STA ×3 (11:29→13:07)
--- NOTE | 2020-09-22 11:42 | ED ---
Weakness HPI - General Stated complaint: Poss Sepsis Time Seen by Provider: 09/22/20 11:24 Source: EMS, RN notes reviewed, old records reviewed Mode of arrival: EMS - History of Present Illness Initial comments: this is a 80-year-old male who is brought in for evaluation for possible sepsis. He was noted have decreased urine output with dark cloudy urine decreased oral intake no reports of cough fevers or chills he does have a history of bilateral buttock she was ulcers. He does have contractures. MD Complaint: generalized weakness - Related Data Home Medications Medication Instructions Recorded Confirmed Multivitamins, Thera [Multivitamin 1 tab PO DAILY 08/25/20 09/22/20 (formulary)] [place]-3 Fatty Acids/Fish Oil [Fish 1 cap PO DAILY 08/25/20 09/22/20 Oil 1,000 mg Softgel] LORazepam [Ativan] 0.5 mg PO Q8H PRN 09/22/20 09/22/20 Metoprolol Tartrate [Lopressor] 25 mg PO BID 09/22/20 09/22/20 Morphine Sulfate [Morphine Sulfate 5 mg PO Q4H PRN 09/22/20 09/22/20 Oral Soln Conc (20 MG/ML)] Sennosides [Senna] 8.6 mg PO HS 09/22/20 09/22/20 bisacodyL [Dulcolax] 10 mg RECTAL HS PRN 09/22/20 09/22/20 Previous Rx's Medication Instructions Recorded Acetaminophen Tab [Tylenol] 650 mg PO Q6HR PRN tab 09/01/20 Allergies Allergy/AdvReac Type Severity Reaction Status Date / Time No Known Allergies Allergy Verified 09/22/20 13:08 Review of Systems ROS Statement: Those systems with pertinent positive or pertinent negative responses have been documented in the HPI. ROS Other: All systems not noted in ROS Statement are negative. 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, patients daughter also states patient has a history of an irregular heart rate, daughter states patient used to be a heavy beer and vodka drinker but hasnt drank heavily in about 4 years History of Any Multi-Drug Resistant Organisms: Unobtainable Past Surgical History: Unable to Obtain Past Psychological History: Unable to Obtain Past Alcohol Use History: Unable to Obtain Past Drug Use History: Unable to Obtain General Exam - General Exam Comments Initial Comments: this is a well-developed asthenic appearing male who is awake alert but lethargic he does demonstrate contractures General appearance: alert, lethargic Head exam: Present: atraumatic, normocephalic, normal inspection Eye exam: Present: normal appearance, PERRL, EOMI. Absent: scleral icterus, conjunctival injection, periorbital swelling ENT exam: Present: mucous membranes dry Neck exam: Present: other (no stridor JVD or bruits) Respiratory exam: Present: rhonchi (scattered rhonchi), decreased breath sounds Rectal exam: Present: deferred Extremities exam: Present: other (decubitus ulcers on the buttock) Back exam: Absent: tenderness Neurological exam: Present: alert, altered, CN II-XII intact Psychiatric exam: Present: flat affect Skin exam: Present: warm, dry. Absent: intact Course Vital Signs 09/22/20 09/22/20 11:28 11:57 Temperature 102.9 F H Pulse Rate 129 H Pulse Rate [ 123 H Disaster Director ] Respiratory 20 Rate Blood Pressure 124/69 O2 Sat by Pulse 95 Oximetry - Reevaluation(s) Reevaluation #1: 09/22/20 14:11 Reevaluation patient reveals no changes mentation or status. Vital signs are maintained EKG Findings - EKG Results: EKG: interpreted by ERMD (atrial fibrillation rate of 123 QRS 60 QT since QTC 396/566 left exodeviation low-voltage evidence of old inferior changes poor R- wave progression noted this is compared to an EKG dated 08/24/20) Medical Decision Making - Medical Decision Making I did discuss case with H will be admitted for IV antibiotics and cardiology consultation - Lab Data Result diagrams: 09/22/20 11:55 09/22/20 11:55 Lab Results 09/22/20 09/22/20 09/22/20 Range/Units 11:55 11:55 11:55 WBC 13.6 H (3.8-10.6) k/uL RBC 3.47 L (4.30-5.90) m/uL Hgb 11.0 L (13.0-17.5) gm/dL Hct 34.8 L (39.0-53.0) % MCV 100.2 H (80.0-100.0) fL MCH 31.7 (25.0-35.0) pg MCHC 31.6 (31.0-37.0) g/dL RDW 15.4 (11.5-15.5) % Plt Count 263 (150-450) k/uL Neutrophils % 84 % Lymphocytes % 11 % Monocytes % 2 % Eosinophils % 1 % Basophils % 1 % Neutrophils # 11.5 H (1.3-7.7) k/uL Lymphocytes # 1.5 (1.0-4.8) k/uL Monocytes # 0.3 (0-1.0) k/uL Eosinophils # 0.1 (0-0.7) k/uL Basophils # 0.1 (0-0.2) k/uL Hypochromasia Moderate Macrocytosis Slight PT 12.5 H (9.0-12.0) sec INR 1.2 H (<1.2) APTT 28.9 (22.0-30.0) sec D-Dimer 4.93 H (<0.60) mg/L FEU Sodium (137-145) mmol/L Potassium (3.5-5.1) mmol/L Chloride (98-107) mmol/L Carbon Dioxide (22-30) mmol/L Anion Gap mmol/L BUN (9-20) mg/dL Creatinine (0.66-1.25) mg/dL Est GFR (CKD-EPI)AfAm (>60 ml/min/1.73 sqM) Est GFR (CKD-EPI)NonAf (>60 ml/min/1.73 sqM) Glucose (74-99) mg/dL Plasma Lactic Acid Aman (0.7-2.0) mmol/L Calcium (8.4-10.2) mg/dL Magnesium (1.6-2.3) mg/dL Total Bilirubin (0.2-1.3) mg/dL AST (17-59) U/L ALT (4-49) U/L Alkaline Phosphatase (38-126) U/L Lactate Dehydrogenase (313-618) U/L Creatine Kinase (55-170) U/L Troponin I (0.000-0.034) ng/mL C-Reactive Protein (<10.0) mg/L NT-Pro-B Natriuret Pep pg/mL Total Protein (6.3-8.2) g/dL Albumin (3.5-5.0) g/dL Urine Color Dark Brown Urine Appearance Turbid (Clear) Urine pH 5.5 (5.0-8.0) Ur Specific [place] 1.021 (1.001-1.035) Urine Protein 2+ H (Negative) Urine Glucose (UA) Negative (Negative) Urine Ketones Negative (Negative) Urine Blood Moderate H (Negative) Urine Nitrite Negative (Negative) Urine Bilirubin 1+ H (Negative) Urine Urobilinogen 6.0 (<2.0) mg/dL Ur Leukocyte Esterase Large H (Negative) Urine RBC 135 H (0-5) /hpf Urine WBC >182 H (0-5) /hpf Urine Bacteria Moderate H (None) /hpf Urine Mucus Many H (None) /hpf Urine Yeast (Budding) Occasional H (None) /hpf 09/22/20 09/22/20 09/22/20 Range/Units 11:55 11:55 11:55 WBC (3.8-10.6) k/uL RBC (4.30-5.90) m/uL Hgb (13.0-17.5) gm/dL Hct (39.0-53.0) % MCV (80.0-100.0) fL MCH (25.0-35.0) pg MCHC (31.0-37.0) g/dL RDW (11.5-15.5) % Plt Count (150-450) k/uL Neutrophils % % Lymphocytes % % Monocytes % % Eosinophils % % Basophils % % Neutrophils # (1.3-7.7) k/uL Lymphocytes # (1.0-4.8) k/uL Monocytes # (0-1.0) k/uL Eosinophils # (0-0.7) k/uL Basophils # (0-0.2) k/uL Hypochromasia Macrocytosis PT (9.0-12.0) sec INR (<1.2) APTT (22.0-30.0) sec D-Dimer (<0.60) mg/L FEU Sodium 146 H (137-145) mmol/L Potassium 3.4 L (3.5-5.1) mmol/L Chloride 109 H (98-107) mmol/L Carbon Dioxide 32 H (22-30) mmol/L Anion Gap 5 mmol/L BUN 22 H (9-20) mg/dL Creatinine 0.91 (0.66-1.25) mg/dL Est GFR (CKD-EPI)AfAm >90 (>60 ml/min/1.73 sqM) Est GFR (CKD-EPI)NonAf 80 (>60 ml/min/1.73 sqM) Glucose 66 L (74-99) mg/dL Plasma Lactic Acid Aman 2.5 H* (0.7-2.0) mmol/L Calcium 7.7 L (8.4-10.2) mg/dL Magnesium 1.9 (1.6-2.3) mg/dL Total Bilirubin 1.5 H (0.2-1.3) mg/dL AST 33 (17-59) U/L ALT 15 (4-49) U/L Alkaline Phosphatase 67 (38-126) U/L Lactate Dehydrogenase 1108 H (313-618) U/L Creatine Kinase 36 L (55-170) U/L Troponin I 0.057 H* (0.000-0.034) ng/mL C-Reactive Protein 229.2 H (<10.0) mg/L NT-Pro-B Natriuret Pep pg/mL Total Protein 5.9 L (6.3-8.2) g/dL Albumin 2.2 L (3.5-5.0) g/dL Urine Color Urine Appearance (Clear) Urine pH (5.0-8.0) Ur Specific [place] (1.001-1.035) Urine Protein (Negative) Urine Glucose (UA) (Negative) Urine Ketones (Negative) Urine Blood (Negative) Urine Nitrite (Negative) Urine Bilirubin (Negative) Urine Urobilinogen (<2.0) mg/dL Ur Leukocyte Esterase (Negative) Urine RBC (0-5) /hpf Urine WBC (0-5) /hpf Urine Bacteria (None) /hpf Urine Mucus (None) /hpf Urine Yeast (Budding) (None) /hpf 09/22/20 Range/Units 11:55 WBC (3.8-10.6) k/uL RBC (4.30-5.90) m/uL Hgb (13.0-17.5) gm/dL Hct (39.0-53.0) % MCV (80.0-100.0) fL MCH (25.0-35.0) pg MCHC (31.0-37.0) g/dL RDW (11.5-15.5) % Plt Count (150-450) k/uL Neutrophils % % Lymphocytes % % Monocytes % % Eosinophils % % Basophils % % Neutrophils # (1.3-7.7) k/uL Lymphocytes # (1.0-4.8) k/uL Monocytes # (0-1.0) k/uL Eosinophils # (0-0.7) k/uL Basophils # (0-0.2) k/uL Hypochromasia Macrocytosis PT (9.0-12.0) sec INR (<1.2) APTT (22.0-30.0) sec D-Dimer (<0.60) mg/L FEU Sodium (137-145) mmol/L Potassium (3.5-5.1) mmol/L Chloride (98-107) mmol/L Carbon Dioxide (22-30) mmol/L Anion Gap mmol/L BUN (9-20) mg/dL Creatinine (0.66-1.25) mg/dL Est GFR (CKD-EPI)AfAm (>60 ml/min/1.73 sqM) Est GFR (CKD-EPI)NonAf (>60 ml/min/1.73 sqM) Glucose (74-99) mg/dL Plasma Lactic Acid Aman (0.7-2.0) mmol/L Calcium (8.4-10.2) mg/dL Magnesium (1.6-2.3) mg/dL Total Bilirubin (0.2-1.3) mg/dL AST (17-59) U/L ALT (4-49) U/L Alkaline Phosphatase (38-126) U/L Lactate Dehydrogenase (313-618) U/L Creatine Kinase (55-170) U/L Troponin I (0.000-0.034) ng/mL C-Reactive Protein (<10.0) mg/L NT-Pro-B Natriuret Pep 4240 pg/mL Total Protein (6.3-8.2) g/dL Albumin (3.5-5.0) g/dL Urine Color Urine Appearance (Clear) Urine pH (5.0-8.0) Ur Specific [place] (1.001-1.035) Urine Protein (Negative) Urine Glucose (UA) (Negative) Urine Ketones (Negative) Urine Blood (Negative) Urine Nitrite (Negative) Urine Bilirubin (Negative) Urine Urobilinogen (<2.0) mg/dL Ur Leukocyte Esterase (Negative) Urine RBC (0-5) /hpf Urine WBC (0-5) /hpf Urine Bacteria (None) /hpf Urine Mucus (None) /hpf Urine Yeast (Budding) (None) /hpf - Radiology Data Radiology results: report reviewed ( to the complete report), image reviewed Critical Care Time Critical Care Time: Yes Total Critical Care Time: 39 Critical Care Time: 39 minutes of critical care time which included initial presentation with history physical labs x-rays discussed with paramedics brought the patient and review of old charting available reevaluation the patient discussed with the main physician admission orders and documentation of the above Disposition Clinical Impression: Sepsis, Pneumonia, CHF (congestive heart failure), Febrile illness, acute Disposition: ADMITTED IP TO THIS [facility] Condition: Fair Referrals: Roger Siegel DO [Primary Care Provider] - 1-2 days
[2020-09-22 12:18] LABS: Basophils # (A) 0.1 k/uL (0-0.2); Basophils % (A) 1 %; Eosinophils # (A) 0.1 k/uL (0-0.7); Eosinophils % (A) 1 %; HCT 34.8 % (39.0-53.0); Hypochromasia Moderate; Lymphocytes # (A) 1.5 k/uL (1.0-4.8); Lymphocytes % (A) 11 %; MCH 31.7 pg (25.0-35.0); MCHC 31.6 g/dL (31.0-37.0); MCV 100.2 fL (80.0-100.0); Macrocytosis Slight; Mean Platelet Volume 8.1; Monocytes # (A) 0.3 k/uL (0-1.0); Monocytes % (A) 2 %; Neutrophils # (A) 11.5 k/uL (1.3-7.7); Neutrophils % (A) 84 %; Platelet Count 263 k/uL (150-450); RBC 3.47 m/uL (4.30-5.90); RDW 15.4 % (11.5-15.5); WBC 13.6 k/uL (3.8-10.6)
[2020-09-22 12:26] LABS: Appearance,Urine Turbid (Clear); Bacteria,Urine Moderate /hpf; Bilirubin,Urine 1+ (Negative); Blood,Urine Moderate (Negative); Budding Yeast,Urine Occasional /hpf; Color,Urine Dark Brown; Glucose,Urine (UA) Negative (Negative); Ketones,Urine Negative (Negative); Leukocyte Esterase,Urine Large (Negative); Mucus,Urine Many /hpf; Nitrite,Urine Negative (Negative); PH, Urine 5.5 (5.0-8.0); Protein,Urine 2+ (Negative); RBC,Urine 135 /hpf (0-5); Specific Gravity,Urine 1.021 (1.001-1.035); WBC,Urine >182 /hpf (0-5)
[2020-09-22 12:31] LABS: ALT 15 U/L (4-49); AST 33 U/L (17-59); African American GFR (CKD) >90 (>60 ml/min/1.73 sqM); Albumin 2.2 g/dL (3.5-5.0); Alkaline Phosphatase 67 U/L (38-126); Anion Gap 5 mmol/L; Blood Urea Nitrogen 22 mg/dL (9-20); Calcium 7.7 mg/dL (8.4-10.2); Carbon Dioxide 32 mmol/L (22-30); Chloride 109 mmol/L (98-107); Creatine Kinase 36 U/L (55-170); Glucose 66 mg/dL (74-99); LDH 1108 U/L (313-618); Magnesium 1.9 mg/dL (1.6-2.3); Non-African American GFR(CKD) 80 (>60 ml/min/1.73 sqM); Potassium 3.4 mmol/L (3.5-5.1); Sodium 146 mmol/L (137-145); Total Bilirubin 1.5 mg/dL (0.2-1.3); Total Protein 5.9 g/dL (6.3-8.2)
--- NOTE | 2020-09-22 12:37 | XR ---
EXAMINATION TYPE: XR chest 1V portable DATE OF EXAM: 09/22/2020 COMPARISON: Chest x-ray September 01, 2020 and older studies. HISTORY: Difficulty breathing, weakness, and fever. TECHNIQUE: Single AP portable frontal semiupright view of the chest is obtained. FINDINGS: Cardiac silhouette size stable and within normal limits with atherosclerotic thoracic aort a. Osseous structures remain demineralized. Background chronic emphysematous change with small bilate ral pleural effusions and bibasilar opacities on current study. Suspect persistent mild interstitial edema. Persistent perihilar opacities slightly more prominent left hilar region. Upper lungs clear wi thout pneumothorax. IMPRESSION: Chronic emphysematous change with small bilateral pleural effusions. Persistent bibasila r acute atelectasis and/or infiltrate. Persistent mild interstitial edema. Slightly more prominent le ft greater than right perihilar edema and/or infiltrates. Underlying left hilar mass not excluded. Co nsider contrast-enhanced chest CT follow-up.
[2020-09-22 12:51] LABS: INR 1.2 (<1.2); Partial Thromboplastin Time 28.9 sec (22.0-30.0); Prothrombin Time 12.5 sec (9.0-12.0)
[2020-09-22 12:53] LABS: D-Dimer 4.93 mg/L FEU (<0.60)
[2020-09-22 13:02] LABS: C Reactive Protein 229.2 mg/L (<10.0)
[2020-09-22] MEDS ORDERED: FUROSEMIDE 10 MG/ML 4 ML VIAL IV STA (13:36)
--- NOTE | 2020-09-22 13:51 | CT ---
EXAMINATION TYPE: CT angio chest DATE OF EXAM: 09/22/2020 COMPARISON: Chest x-ray 09/22/2020 HISTORY: Elevated d-dimer, weakness, Fever CT DLP: 278.4 mGycm Automated exposure control for dose reduction was used. CONTRAST: CTA scan of the thorax is performed with IV Contrast, patient injected with 80 mL of Isovue 370, pulm onary embolism protocol. MIP images are created and reviewed. 3D reconstructed images are created o n an independent workstation and reviewed. FINDINGS: There are anasarca changes present. Ascites is suspected within the upper abdomen, motion p resent on the exam LUNGS: There are bilateral pleural effusions and associated compressive atelectatic changes. Emphysem atous changes are present within the lungs. No evident lung mass. AORTA: No additional significant abnormality is seen. MEDIASTINUM: There is satisfactory enhancement of the pulmonary artery and its branches, there is jens e minimal for enhancement of segmental branches in the left upper lobe, axial image #62e however the branches enhancement peripherally, similar findings on axial image 51 left upper lobe. There are no greater than 1 cm hilar or mediastinal lymph nodes. No pericardial effusion is seen. OTHER: Possible underlying spinal curvature.. IMPRESSION: BILATERAL PLEURAL EFFUSIONS, CORRELATE FOR ATELECTASIS VERSUS PNEUMONIA. PULMONARY EMBOLISM NOT THOUG HT LIKELY TO BE PRESENT DESPITE POOR OPACIFICATION OF SOME PULMONARY ARTERY BRANCHES IN THE LEFT UPPE R LOBE. EMPHYSEMA. NO EVIDENT MASS. ANASARCA AND ADDITIONAL FINDINGS ABOVE.
[2020-09-22] MEDS ORDERED: cefTRIAXone IN SWFI 1,000 MG/10 ML SYRINGE IVP STA (14:09)
[2020-09-22] MEDS ORDERED: ACETAMINOPHEN TAB 500 MG TAB PO STA (14:22)
[2020-09-22] MEDS: SODIUM CHLORIDE 0.9% 1,000 ML IV SCH ×2 (15:04→22:15)
--- NOTE | 2020-09-22 18:11 | P.HPIM ---
History of Present Illness This is a pleasant 80 years old male with unknown past medical history, patient could not provide information so it was taken from the records, and and ED physician and staff, patient is known to me from admission last month. At that time he was not taking care of himself, he was refusing follow-up with medical providers and came to the hospital for severe sepsis, bacteremia secondary to pressure ulcers and UTI. At that time his Ms. Dougherty (at [phone]) was thinking for hospice care however she change her mind and decided to treat him. This time patient presents also for possible sepsis . Patient is awake and follow simple commands however he looks confused and drowsy and go back to sleep right away. On admission he has a fever of 102.9. He was tachycardic around 110-120, tachypneic I 22, blood pressure 141/79, however the fissure was on the low side on admission 100/60. Labs showed leukocytosis with WBC 13.6 K, hemoglobin 11. D-dimer was elevated at 4.9. Elevated lactic acid, sodium is elevated to 146, creatinine with a very frustrated as 0.9, potassium 3.4. Liver enzymes not elevated. Lactate dehydrogenase is elevated at 1108, elevated C-reactive protein 229.2, proBNP is elevated at 4240. UA is suspicious of infection EKG showing atrial fibrillation with RVR at 123 CT of the chest showed emphysema, bilateral pleural effusion and atelectasis. Chest x-ray small bilateral pleural effusion and atelectasis. The emergency room patient was started on ceftriaxone and normal saline at 1 30 mL/h Review of Systems n/a Past Medical History Past Medical History: Unable to Obtain, Atrial Fibrillation, Dementia, Eye Disorder, GERD/Reflux, Hearing Disorder / Deafness, Pneumonia, Skin Disorder Additional Past Medical History / Comment(s): Pt recently admitted to [facility] on 08/24/20 with infected R hip ulcer/pneumonia/R hip ulcer/UTI/hematuria/bacteremia with proteus vulgaris/sepsis/afib/cachexia/sinus tachy. 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 History of Any Multi-Drug Resistant Organisms: None Reported Past Surgical History: No Surgical Hx Reported Additional Past Surgical History / Comment(s): Tanya does not believe that pt has had any surgeries. Past Anesthesia/Blood Transfusion Reactions: Unable to Obtain Smoking Status: Former smoker - Past Family History Father Family Medical History: Unable to Obtain Mother Family Medical History: Cancer Additional Family Medical History / Comment(s): Mother had uterine cancer and stomach cancer. Medications and Allergies Home Medications Medication Instructions Recorded Confirmed Type Multivitamins, Thera [Multivitamin 1 tab PO DAILY 08/25/20 09/22/20 History (formulary)] [place]-3 Fatty Acids/Fish Oil [Fish 1 cap PO DAILY 08/25/20 09/22/20 History Oil 1,000 mg Softgel] Acetaminophen Tab [Tylenol] 650 mg PO Q6HR PRN tab 09/01/20 09/22/20 Rx LORazepam [Ativan] 0.5 mg PO Q8H PRN 09/22/20 09/22/20 History Metoprolol Tartrate [Lopressor] 25 mg PO BID 09/22/20 09/22/20 History Morphine Sulfate [Morphine Sulfate 5 mg PO Q4H PRN 09/22/20 09/22/20 History Oral Soln Conc (20 MG/ML)] Sennosides [Senna] 8.6 mg PO HS 09/22/20 09/22/20 History bisacodyL [Dulcolax] 10 mg RECTAL HS PRN 09/22/20 09/22/20 History Allergies Allergy/AdvReac Type Severity Reaction Status Date / Time No Known Allergies Allergy Verified 09/22/20 13:08 Physical Exam Vitals: Vital Signs Temp Pulse Pulse Resp BP Pulse Ox 09/22/20 14:20 100.7 F H 09/22/20 14:15 122 H 22 141/79 09/22/20 14:00 112 H 19 09/22/20 13:45 118 H 21 98 09/22/20 13:30 100/60 09/22/20 13:15 133 H 22 100/60 93 L 09/22/20 13:00 126 H 20 119/74 09/22/20 12:45 138 H 26 H 119/74 10/27/20 12:30 134 H 30 H 107/72 90 L 09/22/20 12:15 121 H 28 H 105/66 94 L 09/22/20 12:00 122 H 27 H 124/69 92 L 09/22/20 11:57 123 H 09/22/20 11:45 126 H 27 H 124/69 09/22/20 11:30 97 09/22/20 11:28 102.9 F H 129 H 20 124/69 95 Intake and Output 09/22/20 09/22/20 09/22/20 06:59 14:59 22:59 Other: Weight 49.895 kg 49.895 kg -GENERAL: The patient is Confused and drowsy, he opens eyes for verbal stimuli CT and go back to sleep. Follow-up simple commands. Answers 1 or 2 as questions appropriately like he knows in the hospital. HEENT: Pupils are round and equally reacting to light. EOMI. No scleral icterus. No conjunctival pallor. Normocephalic, atraumatic. No pharyngeal erythema. No thyromegaly. CARDIOVASCULAR: S1 and S2 present. No murmurs, rubs, or gallops. PULMONARY: Chest is clear to auscultation, no wheezing or crackles. ABDOMEN: Soft, nontender, nondistended, normoactive bowel sounds. No palpable organomegaly. -MUSCULOSKELETAL: No joint swelling or deformity. Multiple pressure ulcers EXTREMITIES: No cyanosis, clubbing, or pedal edema. NEUROLOGICAL: Gross neurological examination did not reveal any focal deficits. SKIN: No rashes. no petechiae. Results CBC & Chem 7: 09/22/20 11:55 09/22/20 11:55 Labs: Abnormal Lab Results - Last 24 Hours (Table) 09/22/20 09/22/20 09/22/20 Range/Units 11:55 11:55 11:55 WBC 13.6 H (3.8-10.6) k/uL RBC 3.47 L (4.30-5.90) m/uL Hgb 11.0 L (13.0-17.5) gm/dL Hct 34.8 L (39.0-53.0) % MCV 100.2 H (80.0-100.0) fL Neutrophils # 11.5 H (1.3-7.7) k/uL PT 12.5 H (9.0-12.0) sec INR 1.2 H (<1.2) D-Dimer 4.93 H (<0.60) mg/L FEU Sodium (137-145) mmol/L Potassium (3.5-5.1) mmol/L Chloride (98-107) mmol/L Carbon Dioxide (22-30) mmol/L BUN (9-20) mg/dL Glucose (74-99) mg/dL Plasma Lactic Acid Aman (0.7-2.0) mmol/L Calcium (8.4-10.2) mg/dL Total Bilirubin (0.2-1.3) mg/dL Lactate Dehydrogenase (313-618) U/L Creatine Kinase (55-170) U/L Troponin I (0.000-0.034) ng/mL C-Reactive Protein (<10.0) mg/L Total Protein (6.3-8.2) g/dL Albumin (3.5-5.0) g/dL Urine Protein 2+ H (Negative) Urine Blood Moderate H (Negative) Urine Bilirubin 1+ H (Negative) Ur Leukocyte Esterase Large H (Negative) Urine RBC 135 H (0-5) /hpf Urine WBC >182 H (0-5) /hpf Urine Bacteria Moderate H (None) /hpf Urine Mucus Many H (None) /hpf Urine Yeast (Budding) Occasional H (None) /hpf 09/22/20 09/22/20 09/22/20 Range/Units 11:55 11:55 11:55 WBC (3.8-10.6) k/uL RBC (4.30-5.90) m/uL Hgb (13.0-17.5) gm/dL Hct (39.0-53.0) % MCV (80.0-100.0) fL Neutrophils # (1.3-7.7) k/uL PT (9.0-12.0) sec INR (<1.2) D-Dimer (<0.60) mg/L FEU Sodium 146 H (137-145) mmol/L Potassium 3.4 L (3.5-5.1) mmol/L Chloride 109 H (98-107) mmol/L Carbon Dioxide 32 H (22-30) mmol/L BUN 22 H (9-20) mg/dL Glucose 66 L (74-99) mg/dL Plasma Lactic Acid Aman 2.5 H* (0.7-2.0) mmol/L Calcium 7.7 L (8.4-10.2) mg/dL Total Bilirubin 1.5 H (0.2-1.3) mg/dL Lactate Dehydrogenase 1108 H (313-618) U/L Creatine Kinase 36 L (55-170) U/L Troponin I 0.057 H* (0.000-0.034) ng/mL C-Reactive Protein 229.2 H (<10.0) mg/L Total Protein 5.9 L (6.3-8.2) g/dL Albumin 2.2 L (3.5-5.0) g/dL Urine Protein (Negative) Urine Blood (Negative) Urine Bilirubin (Negative) Ur Leukocyte Esterase (Negative) Urine RBC (0-5) /hpf Urine WBC (0-5) /hpf Urine Bacteria (None) /hpf Urine Mucus (None) /hpf Urine Yeast (Budding) (None) /hpf 09/22/20 Range/Units 14:54 WBC (3.8-10.6) k/uL RBC (4.30-5.90) m/uL Hgb (13.0-17.5) gm/dL Hct (39.0-53.0) % MCV (80.0-100.0) fL Neutrophils # (1.3-7.7) k/uL PT (9.0-12.0) sec INR (<1.2) D-Dimer (<0.60) mg/L FEU Sodium (137-145) mmol/L Potassium (3.5-5.1) mmol/L Chloride (98-107) mmol/L Carbon Dioxide (22-30) mmol/L BUN (9-20) mg/dL Glucose (74-99) mg/dL Plasma Lactic Acid Aman 2.2 H* (0.7-2.0) mmol/L Calcium (8.4-10.2) mg/dL Total Bilirubin (0.2-1.3) mg/dL Lactate Dehydrogenase (313-618) U/L Creatine Kinase (55-170) U/L Troponin I (0.000-0.034) ng/mL C-Reactive Protein (<10.0) mg/L Total Protein (6.3-8.2) g/dL Albumin (3.5-5.0) g/dL Urine Protein (Negative) Urine Blood (Negative) Urine Bilirubin (Negative) Ur Leukocyte Esterase (Negative) Urine RBC (0-5) /hpf Urine WBC (0-5) /hpf Urine Bacteria (None) /hpf Urine Mucus (None) /hpf Urine Yeast (Budding) (None) /hpf Thrombosis Risk Factor Assmnt - Choose All That Apply Any of the Below Risk Factors Present?: Yes Each Factor Represents 1 point: Medical pt on bed rest, Sepsis (< 1month), Serious lung disease incl. pneumonia (< 1month) Other Risk Factors: Yes Each Risk Factor Represents 2 Points: Patient confined to bed Each Risk Factor Represents 3 Points: Age 75 years or older Other congenital or acquired thrombophilia - If yes, enter type in comment: No Thrombosis Risk Factor Assessment Total Risk Factor Score: 8 Thrombosis Risk Factor Assessment Level: High Risk Assessment and Plan Assessment: Severe sepsis with fever, tachycardia, tachypnea and leukocytosis Elevated lactic acid -Dehydration with hypernatremia and hypokalemia acute urinary tract infection Metabolic encephalopathy secondary to above A. fib with RVR. Patient is a known history of A. fib Elevated d-dimer with negative CT of the chest for PE Bilateral pressure ulcer Memory problem Cachexia and deconditioning, BMI is 15.8 , was 14.9 last month Generalized weakness Noncompliance and adherence to therapy Plan: This is a pleasant 80 years old male who presents with sepsis, UTI and A. fib and RVR. Start the patient and ceftriaxone, follow-up urine and blood culture. Monitor vitals closely. Continue with IV fluids. Cardiology consult for his A. fib. We will check a renal ultrasound Labs and medication were reviewed.. Continue same treatment. Continue with symptomatic treatment. Resume home medication. Monitor lytes and vitals. DVT and GI prophylaxis. Further recommendationsas per clinical course of the patient DVT prophylaxis: Subcutaneous heparin GI Prophylaxis: Pepcid PT/OT: Pending Prognosis is guarded
--- NOTE | 2020-09-22 19:37 | US ---
EXAMINATION TYPE: US renals and bladder DATE OF EXAM: 09/22/2020 COMPARISON: NONE CLINICAL HISTORY: uti . UTI per order. Poor historian. EXAM MEASUREMENTS: Right Kidney: 10.5 x 5.5 x 4.6 cm Left Kidney: 10.4 x 5.8 x 5.1 cm -Limited exam due to gas and small patient body habitus. Right Kidney: No hydronephrosis or masses seen Left Kidney: No hydronephrosis or masses seen Bladder: Not distended. Unable to evaluate. Catheter seen. Bilateral Jets seen: No *Incidental findings: -Gallbladder appears distended measuring 13.5 cm in length and 6.4 cm in width. Internal echoes seen within gallbladder. Hyperechoic focus with posterior shadowing seen within the gallbladder measurin.9 x 2.6 x 2.0 cm. Wall measures 0.27 cm. -Fluid seen adjacent to the liver. -Liver appears heterogeneous. IMPRESSION: No evidence of renal mass or obstruction. Markedly dilated gallbladder measures 6.5 cm in diameter with gallstone. This is consistent with chol ecystitis.
[2020-09-22] MEDS: HEPARIN SODIUM,PORCINE 5,000 UNIT/ML 1 ML VIAL SQ SCH (22:14)
[2020-09-22 23:27] LABS: Ferritin 604.9 ng/mL (22.0-322.0)
[2020-09-23 07:19] LABS: Basophils % (A) 0 %; Eosinophils % (A) 0 %; HCT 33.1 % (39.0-53.0); HGB 9.6 gm/dL (13.0-17.5); Hypochromasia Marked; Lymphocytes # (A) 1.5 k/uL (1.0-4.8); Lymphocytes % (A) 13 %; MCH 30.1 pg (25.0-35.0); MCV 103.8 fL (80.0-100.0); Macrocytosis Moderate; Mean Platelet Volume 8.7; Monocytes # (A) 0.3 k/uL (0-1.0); Monocytes % (A) 2 %; Neutrophils # (A) 9.7 k/uL (1.3-7.7); Neutrophils % (A) 84 %; Platelet Count 157 k/uL (150-450); RBC 3.19 m/uL (4.30-5.90); RDW 15.6 % (11.5-15.5); WBC 11.6 k/uL (3.8-10.6)
[2020-09-23] MEDS: HEPARIN SODIUM,PORCINE 5,000 UNIT/ML 1 ML VIAL SQ SCH ×2 (08:45→20:58)
[2020-09-23] MEDS: PANTOPRAZOLE 40 MG/10 ML VIAL IV SCH (08:45)
--- NOTE | 2020-09-23 09:21 | US ---
EXAMINATION TYPE: US venous doppler duplex LE DATE OF EXAM: 09/23/2020 8:10 AM COMPARISON: NONE CLINICAL HISTORY: PEDAL EDEMA . Contorted positioning in thin elderly man, took 2 techs to help hold patient and scan, very limited study, patient could not answer any questions. SIDE PERFORMED: Bilateral TECHNIQUE: The lower extremity deep venous system is examined utilizing real time linear array sonog constantin with graded compression, doppler sonography and color-flow sonography. Court Specialist reports tech nically difficult exam due to patient positioning. VESSELS IMAGED: External Iliac Vein (EIV) Common Femoral Vein Deep Femoral Vein Greater Saphenous Vein * Femoral Vein Popliteal Vein Small Saphenous Vein * Proximal Calf Veins (* superficial vessels) Right Leg: No evidence of deep venous thrombosis. Normal flow, compressibility, and vascular wavefor ms. Left Leg: No evidence of deep venous thrombosis. Normal flow, compressibility, and vascular waveform s. IMPRESSION: No evidence of deep venous thrombosis of the bilateral lower extremities.
--- NOTE | 2020-09-23 11:06 | P.CRDCN ---
History of Present Illness History of present illness: HISTORY OF PRESENTING ILLNESS This is a pleasant 80-year-old male past medical history significant for dementia closed head injury,seizure disorder and former history of alcohol abuse. He is nonverbal and does not communicate. Information is obtained from the medical record. We have been asked to see in consultation for elevated troponin. He was brought to the hospital for concerns of sepsis. Chest x-ray revealed chronic emphysematous changes with small bilateral pleural effusions, persistent bibasilar atelectasis and/or infiltrate, persistent mild interstitial edema left greater than right infiltrate in the perihilar region. CTA of the chest reveals bilateral pleural effusions PE thought not likely however poor opacification of the pulmonary artery branches noted. EKG reveals atrial fibrillation his heart rate of 123. Laboratory data reviewed,wBC on admission 13.6 repeat today 11.6, hemoglobin 9.6, platelets 157, d-dimer 4.93, INR 1.2, sodium 146, potassium 3.4, creatinine 0.91, NT proBNP 4240, troponin 0.057 afebrile calcitonin 1.44. He had a rectal temperature of 102.9F on admission.Echocardiogram obtained August 25 revealed preserved LV systolic function with ejection fraction 55-60%. he has been diagnosed with pneumonia and is currently on IV antibiotics. He is seen and examined resting comfortably lying flat in bed contractures of his bilateral lower extremities. REVIEW OF SYSTEMS At the time of my exam: Unable to obtain accurate review of systems secondary to altered mental status. PHYSICAL EXAMINATION Blood pressure 133/70 heart rate 70 afebrile and maintaining oxygen saturation on nasal cannula. CONSTITUTIONAL: No apparent distress. Frail. HEENT: Head is normocephalic. Pupils are equal, round. Sclerae anicteric. Mucous membranes of the mouth are moist. No JVD. No carotid bruit. CHEST EXAMINATION: Lungs are clear to auscultation. No chest wall tenderness is noted on palpation or with deep breathing. Diminished bilaterally. HEART EXAMINATION: Regular rate and rhythm. S1, S2 heard. No murmurs, gallops or rub. ABDOMEN: Soft, nontender. Positive bowel sounds. EXTREMITIES: 2+ peripheral pulses, no lower extremity edema and no calf tenderness. Both legs contracted up. ASSESSMENT Paroxysmal atrial fibrillation, currently maintaining sinus mechanism. New onset. Mild troponin leak secondary to sepsis Hypokalemia Urinary tract infection Febrile illness Sepsis Lactic acidosis Leukocytosis Frail, BMI 17 PLAN Troponin leak secondary to sepsis. Unclear why troponin was checked on this patient. Atrial fibrillation appears new onset, however he has converted to sinus mechanism. His prognosis and clinical picture looks poor and there was some hospice conversation on last admission. He would qualify for computer terminal operator anti-coag ulation however we will defer to primary medical team to make this decision with the family moving forward. No further cardiac recommendations. Thank you kindly for this consultation. Nurse Practitioner note has been reviewed, I agree with a documented findings and plan of care. Patient was seen and examined. Past Medical History Past Medical History: Unable to Obtain, Atrial Fibrillation, Dementia, Eye Disorder, GERD/Reflux, Hearing Disorder / Deafness, Pneumonia, Skin Disorder Additional Past Medical History / Comment(s): Pt recently admitted to [facility] on 08/24/20 with infected R hip ulcer/pneumonia/R hip ulcer/UTI/hematuria/bacteremia with proteus vulgaris/sepsis/afib/cachexia/sinus tachy. Other hx: Multiple skin ulcerations, contractures bilateral legs, tanya states pt never went to the doctors, IDC, incontinent of stool, recent swallowing difficulties, chronic pain, past head injury as a child and had seizures after with last seizure approximatly 1994, very poor vision-only able to make out shapes, [place] bilateral ly-hears best with R ear, past ETOH abuse-last drank about 4 years ago. History of Any Multi-Drug Resistant Organisms: None Reported Past Surgical History: No Surgical Hx Reported Additional Past Surgical History / Comment(s): Tanya does not believe that pt has had any surgeries. Past Anesthesia/Blood Transfusion Reactions: Unable to Obtain Smoking Status: Former smoker - Past Family History Father Family Medical History: Unable to Obtain Mother Family Medical History: Cancer Additional Family Medical History / Comment(s): Mother had uterine cancer and stomach cancer. Medications and Allergies Home Medications Medication Instructions Recorded Confirmed Type Multivitamins, Thera [Multivitamin 1 tab PO DAILY 08/25/20 09/22/20 History (formulary)] [place]-3 Fatty Acids/Fish Oil [Fish 1 cap PO DAILY 08/25/20 09/22/20 History Oil 1,000 mg Softgel] Acetaminophen Tab [Tylenol] 650 mg PO Q6HR PRN tab 09/01/20 09/22/20 Rx LORazepam [Ativan] 0.5 mg PO Q8H PRN 09/22/20 09/22/20 History Metoprolol Tartrate [Lopressor] 25 mg PO BID 09/22/20 09/22/20 History Morphine Sulfate [Morphine Sulfate 5 mg PO Q4H PRN 09/22/20 09/22/20 History Oral Soln Conc (20 MG/ML)] Sennosides [Senna] 8.6 mg PO HS 09/22/20 09/22/20 History bisacodyL [Dulcolax] 10 mg RECTAL HS PRN 09/22/20 09/22/20 History Allergies Allergy/AdvReac Type Severity Reaction Status Date / Time No Known Allergies Allergy Verified 09/22/20 13:08 Physical Exam Vitals: Vital Signs Temp Pulse Pulse Resp BP BP Pulse Ox 09/23/20 08:43 97.3 F L 70 16 133/70 98 09/23/20 04:00 97.0 F L 67 17 119/67 97 09/23/20 00:00 97.6 F 64 14 125/63 99 09/22/20 20:00 98.0 F 71 16 122/56 99 09/22/20 18:50 123 H 12 09/22/20 16:00 98.1 F 12 97/55 99 09/22/20 14:20 100.7 F H 09/22/20 14:15 122 H 22 141/79 09/22/20 14:00 112 H 19 09/22/20 13:45 118 H 21 98 09/22/20 13:30 100/60 09/22/20 13:15 133 H 22 100/60 93 L 09/22/20 13:00 126 H 20 119/74 09/22/20 12:45 138 H 26 H 119/74 09/22/20 12:30 134 H 30 H 107/72 90 L 09/22/20 12:15 121 H 28 H 105/66 94 L 09/22/20 12:00 122 H 27 H 124/69 92 L 09/22/20 11:57 123 H 09/22/20 11:45 126 H 27 H 124/69 09/22/20 11:30 97 09/22/20 11:28 102.9 F H 129 H 20 124/69 95 Intake and Output 09/22/20 09/23/20 09/23/20 22:59 06:59 14:59 Intake Total 650 Output Total 300 600 Balance 350 -600 Intake: Intake, IV Titration 650 Amount Sodium Chloride 0.9% 1, 650 000 ml @ 130 mls/hr IV . Q7H42M [facility] Rx#:[id number] Oral 0 Output: Urine 300 600 Other: Voiding Method Indwelling Catheter Indwelling Catheter Indwelling Catheter Weight 49.895 kg 54 kg Results 09/23/20 06:37 09/22/20 11:55 Cardiac Enzymes 09/22/20 09/22/20 Range/Units 11:55 11:55 AST 33 (17-59) U/L Lactate Dehydrogenase 1108 H (313-618) U/L Troponin I 0.057 H* (0.000-0.034) ng/mL Coagulation 09/22/20 Range/Units 11:55 PT 12.5 H (9.0-12.0) sec APTT 28.9 (22.0-30.0) sec CBC 09/22/20 09/23/20 Range/Units 11:55 06:37 WBC 13.6 H 11.6 H (3.8-10.6) k/uL RBC 3.47 L 3.19 L (4.30-5.90) m/uL Hgb 11.0 L 9.6 L (13.0-17.5) gm/dL Hct 34.8 L 33.1 L (39.0-53.0) % Plt Count 263 157 (150-450) k/uL Comprehensive Metabolic Panel 09/22/20 Range/Units 11:55 Sodium 146 H (137-145) mmol/L Potassium 3.4 L (3.5-5.1) mmol/L Chloride 109 H (98-107) mmol/L Carbon Dioxide 32 H (22-30) mmol/L BUN 22 H (9-20) mg/dL Creatinine 0.91 (0.66-1.25) mg/dL Glucose 66 L (74-99) mg/dL Calcium 7.7 L (8.4-10.2) mg/dL AST 33 (17-59) U/L ALT 15 (4-49) U/L Alkaline Phosphatase 67 (38-126) U/L Total Protein 5.9 L (6.3-8.2) g/dL Albumin 2.2 L (3.5-5.0) g/dL Current Medications Generic Name Dose Route Start Last Admin Trade Name Freq PRN Reason Stop Dose Admin Heparin Sodium (Porcine) 5,000 unit 09/22/20 21:00 09/23/20 08:45 Heparin Sodium,Porcine 5,000 Unit/Ml 1 Ml Vial SQ 5,000 unit Q12HR CONSUELO Administration Sodium Chloride 1,000 mls @ 130 mls/hr 09/22/20 14:15 09/22/20 22:15 Saline 0.9% IV 130 mls/hr .Q7H42M CONSU[facility] Administration Ceftriaxone Sodium 2 gm/ 50 mls @ 100 mls/hr 09/23/20 09:00 09/23/20 09:27 Sodium Chloride IVPB 100 mls/hr Q24HR CONSUELO Administration Pantoprazole Sodium 40 mg 09/23/20 09:00 09/23/20 08:45 Pantoprazole 40 Mg/10 Ml Vial IV 40 mg DAILY CONSUELO Administration Intake and Output 09/22/20 09/23/20 09/23/20 22:59 06:59 14:59 Intake Total 650 Output Total 300 600 Balance 350 -600 Intake: Intake, IV Titration 650 Amount Sodium Chloride 0.9% 1, 650 000 ml @ 130 mls/hr IV . Q7H42M [facility] Rx#:[id number] Oral 0 Output: Urine 300 600 Other: Voiding Method Indwelling Catheter Indwelling Catheter Indwelling Catheter Weight 49.895 kg 54 kg 09/23/20 06:37 09/22/20 11:55
--- NOTE | 2020-09-23 11:57 | P.CONS ---
History of Present Illness - Reason for Consult Consult date: 09/23/20 wound care - History of Present Illness this is a 80-year-old patient being seen on for multiple nonhealing ulcerations. Patient was previously seen at the end of July with the same ulcerations. At that time was ordered honey alginate to the site. Patient refused to have the ulceration. By myself. He was upset that he was being bothered. Patient states that he has not had any dressings to the site and he does not want to have any dressings placed. Patient declines offers to come to the wound care center. Patient was a resident at [facility] however it sounds like he will be going home with his daughter with homecare. he is a poor historian most information was gained from the chart and nursing. Review of Systems ROS unobtainable: due to mental status Past Medical History Past Medical History: Unable to Obtain, Atrial Fibrillation, Dementia, Eye Disorder, GERD/Reflux, Hearing Disorder / Deafness, Pneumonia, Skin Disorder Additional Past Medical History / Comment(s): Pt recently admitted to [facility] on 08/24/20 with infected R hip ulcer/pneumonia/R hip ulcer/UTI/hematuria/bacteremia with proteus vulgaris/sepsis/afib/cachexia/sinus tachy. Other hx: Multiple skin ulcerations, contractures bilateral legs, tanya states pt never went to the doctors, IDC, incontinent of stool, recent swallowing difficulties, chronic pain, past head injury as a child and had seizures after with last seizure approximatly 1994, very poor vision-only able to make out shapes, [place] bilaterally-hears best with R ear, past ETOH abuse-last drank about 4 years ago. History of Any Multi-Drug Resistant Organisms: None Reported Past Surgical History: No Surgical Hx Reported Additional Past Surgical History / Comment(s): Tanya does not believe that pt has had any surgeries. Past Anesthesia/Blood Transfusion Reactions: Unable to Obtain Smoking Status: Former smoker - Past Family History Father Family Medical History: Unable to Obtain Mother Family Medical History: Cancer Additional Family Medical History / Comment(s): Mother had uterine cancer and stomach cancer. Medications and Allergies Home Medications Medication Instructions Recorded Confirmed Type Multivitamins, Thera [Multivitamin 1 tab PO DAILY 08/25/20 09/22/20 History (formulary)] [employer] Fatty Acids/Fish Oil [Fish 1 cap PO DAILY 08/25/20 09/22/20 History Oil 1,000 mg Softgel] Acetaminophen Tab [Tylenol] 650 mg PO Q6HR PRN tab 09/01/20 09/22/20 Rx LORazepam [Ativan] 0.5 mg PO Q8H PRN 09/22/20 09/22/20 History Metoprolol Tartrate [Lopressor] 25 mg PO BID 09/22/20 09/22/20 History Morphine Sulfate [Morphine Sulfate 5 mg PO Q4H PRN 09/22/20 09/22/20 History Oral Soln Conc (20 MG/ML)] Sennosides [Senna] 8.6 mg PO HS 09/22/20 09/22/20 History bisacodyL [Dulcolax] 10 mg RECTAL HS PRN 09/22/20 09/22/20 History Allergies Allergy/AdvReac Type Severity Reaction Status Date / Time No Known Allergies Allergy Verified 09/22/20 13:08 Physical Exam Vitals: Vital Signs Temp Pulse Pulse Resp BP BP Pulse Ox 09/23/20 11:37 97.4 F L 68 18 126/69 94 L 09/23/20 08:43 97.3 F L 70 16 133/70 98 09/23/20 04:00 97.0 F L 67 17 119/67 97 09/23/20 00:00 97.6 F 64 14 125/63 99 09/22/20 20:00 98.0 F 71 16 122/56 99 09/22/20 18:50 123 H 12 09/22/20 16:00 98.1 F 12 97/55 99 09/22/20 14:20 100.7 F H 09/22/20 14:15 122 H 22 141/79 09/22/20 14:00 112 H 19 09/22/20 13:45 118 H 21 98 09/22/20 13:30 100/60 09/22/20 13:15 133 H 22 100/60 93 L 09/22/20 13:00 126 H 20 119/74 09/22/20 12:45 138 H 26 H 119/74 09/22/20 12:30 134 H 30 H 107/72 90 L 09/22/20 12:15 121 H 28 H 105/66 94 L 09/22/20 12:00 122 H 27 H 124/69 92 L 09/22/20 11:57 123 H Intake and Output 09/22/20 09/23/20 09/23/20 22:59 06:59 14:59 Intake Total 650 Output Total 300 600 Balance 350 -600 Intake: Intake, IV Titration 650 Amount Sodium Chloride 0.9% 1, 650 000 ml @ 130 mls/hr IV . Q7H42M [facility] Rx#:[id number] Oral 0 Output: Urine 300 600 Other: Voiding Method Indwelling Catheter Indwelling Catheter Indwelling Catheter Weight 49.895 kg 54 kg 54 kg Physical exam: General Appearance: Alert, cooperative, no distress, appears stated age. Skin: sacral ulceration is a full-thickness ulceration stage III measuring approximate cluster of 2 )5 x 4 x 0.2 cm, 2 x 3 x 0.3 cm) with muscle exposure minimal granulation seen with moderate Slough. right ankle is a stage II ulceration with fatty layer exposure granulation minimal and significant amount of slough, left hip ulceration measures apparently 2 x 1 x 0.2 stage II ulceration of exposure. Right hip ulceration is unstageable with 6 sensitive eschar seen within the wound bed wound edges not attached to the wound base. Measuring approximately 18 x 14 x 0.4.,all other Skin color, texture, tugor normal, no rashes or lesions. Neurologic: Alert oriented x3 Results CBC & Chem 7: 09/23/20 06:37 09/22/20 11:55 Labs: Abnormal Lab Results - Last 24 Hours (Table) 09/22/20 09/22/20 09/22/20 Range/Units 11:55 11:55 11:55 WBC 13.6 H (3.8-10.6) k/uL RBC 3.47 L (4.30-5.90) m/uL Hgb 11.0 L (13.0-17.5) gm/dL Hct 34.8 L (39.0-53.0) % MCV 100.2 H (80.0-100.0) fL MCHC (31.0-37.0) g/dL RDW (11.5-15.5) % Neutrophils # 11.5 H (1.3-7.7) k/uL PT 12.5 H (9.0-12.0) sec INR 1.2 H (<1.2) D-Dimer 4.93 H (<0.60) mg/L FEU Sodium (137-145) mmol/L Potassium (3.5-5.1) mmol/L Chloride (98-107) mmol/L Carbon Dioxide (22-30) mmol/L BUN (9-20) mg/dL Glucose (74-99) mg/dL Plasma Lactic Acid Aman (0.7-2.0) mmol/L Calcium (8.4-10.2) mg/dL Ferritin (22.0-322.0) ng/mL Total Bilirubin (0.2-1.3) mg/dL Lactate Dehydrogenase (313-618) U/L Creatine Kinase (55-170) U/L Troponin I (0.000-0.034) ng/mL C-Reactive Protein (<10.0) mg/L Total Protein (6.3-8.2) g/dL Albumin (3.5-5.0) g/dL Procalcitonin (0.02-0.09) ng/mL Urine Protein 2+ H (Negative) Urine Blood Moderate H (Negative) Urine Bilirubin 1+ H (Negative) Ur Leukocyte Esterase Large H (Negative) Urine RBC 135 H (0-5) /hpf Urine WBC >182 H (0-5) /hpf Urine Bacteria Moderate H (None) /hpf Urine Mucus Many H (None) /hpf Urine Yeast (Budding) Occasional H (None) /hpf 09/22/20 09/22/20 09/22/20 Range/Units 11:55 11:55 11:55 WBC (3.8-10.6) k/uL RBC (4.30-5.90) m/uL Hgb (13.0-17.5) gm/dL Hct (39.0-53.0) % MCV (80.0-100.0) fL MCHC (31.0-37.0) g/dL RDW (11.5-15.5) % Neutrophils # (1.3-7.7) k/uL PT (9.0-12.0) sec INR (<1.2) D-Dimer (<0.60) mg/L FEU Sodium 146 H (137-145) mmol/L Potassium 3.4 L (3.5-5.1) mmol/L Chloride 109 H (98-107) mmol/L Carbon Dioxide 32 H (22-30) mmol/L BUN 22 H (9-20) mg/dL Glucose 66 L (74-99) mg/dL Plasma Lactic Acid Aman 2.5 H* (0.7-2.0) mmol/L Calcium 7.7 L (8.4-10.2) mg/dL Ferritin 604.9 H (22.0-322.0) ng/mL Total Bilirubin 1.5 H (0.2-1.3) mg/dL Lactate Dehydrogenase 1108 H (313-618) U/L Creatine Kinase 36 L (55-170) U/L Troponin I 0.057 H* (0.000-0.034) ng/mL C-Reactive Protein 229.2 H (<10.0) mg/L Total Protein 5.9 L (6.3-8.2) g/dL Albumin 2.2 L (3.5-5.0) g/dL Procalcitonin (0.02-0.09) ng/mL Urine Protein (Negative) Urine Blood (Negative) Urine Bilirubin (Negative) Ur Leukocyte Esterase (Negative) Urine RBC (0-5) /hpf Urine WBC (0-5) /hpf Urine Bacteria (None) /hpf Urine Mucus (None) /hpf Urine Yeast (Budding) (None) /hpf 09/22/20 09/22/20 09/23/20 Range/Units 11:55 14:54 06:37 WBC 11.6 H (3.8-10.6) k/uL RBC 3.19 L (4.30-5.90) m/uL Hgb 9.6 L (13.0-17.5) gm/dL Hct 33.1 L (39.0-53.0) % MCV 103.8 H (80.0-100.0) fL MCHC 29.0 L (31.0-37.0) g/dL RDW 15.6 H (11.5-15.5) % Neutrophils # 9.7 H (1.3-7.7) k/uL PT (9.0-12.0) sec INR (<1.2) D-Dimer (<0.60) mg/L FEU Sodium (137-145) mmol/L Potassium (3.5-5.1) mmol/L Chloride (98-107) mmol/L Carbon Dioxide (22-30) mmol/L BUN (9-20) mg/dL Glucose (74-99) mg/dL Plasma Lactic Acid Aman 2.2 H* (0.7-2.0) mmol/L Calcium (8.4-10.2) mg/dL Ferritin (22.0-322.0) ng/mL Total Bilirubin (0.2-1.3) mg/dL Lactate Dehydrogenase (313-618) U/L Creatine Kinase (55-170) U/L Troponin I (0.000-0.034) ng/mL C-Reactive Protein (<10.0) mg/L Total Protein (6.3-8.2) g/dL Albumin (3.5-5.0) g/dL Procalcitonin 1.44 H (0.02-0.09) ng/mL Urine Protein (Negative) Urine Blood (Negative) Urine Bilirubin (Negative) Ur Leukocyte Esterase (Negative) Urine RBC (0-5) /hpf Urine WBC (0-5) /hpf Urine Bacteria (None) /hpf Urine Mucus (None) /hpf Urine Yeast (Budding) (None) /hpf Microbiology - Last 24 Hours (Table) 09/22/20 11:55 Urine Culture - Preliminary Urine,Voided Assessment and Plan (1) Pressure ulcer of right hip, unstageable Current Visit: No Status: Acute Code(s): L89.210 - PRESSURE ULCER OF RIGHT HIP, UNSTAGEABLE SNOMED Code(s): 024278225 (2) Pressure ulcer of left hip, stage 2 Current Visit: Yes Status: Acute Code(s): L89.222 - PRESSURE ULCER OF LEFT HIP, STAGE 2 SNOMED Code(s): 674528882 (3) Pressure ulcer of coccygeal region, stage 2 Current Visit: No Status: Acute Code(s): L89.152 - PRESSURE ULCER OF SACRAL REGION, STAGE 2 SNOMED Code(s): 663595597 (4) Pressure ulcer of right ankle, stage 2 Current Visit: No Status: Acute Code(s): L89.512 - PRESSURE ULCER OF RIGHT ANKLE, STAGE 2 SNOMED Code(s): 093917878 Plan: patient may benefit from a surgical debridement to the right trochanter however due to his comorbidities that is not ideal. Discussed with patient to proceed with treatment in the wound care center.. Patient declined. At this time utilize honey alginate to all ulcerations. Review of service other around for the appropriate services. Turn every 2 hours as needed. Consult nutrition. Thank you for the consultation any questions contact the wound care center DNP note has been reviewed and discussed with Dr. Aldridge and the impression and plan of care has been directed as dictated.
--- NOTE | 2020-09-23 11:58 | P.PN ---
Subjective This is a pleasant 80 years old male with unknown past medical history, patient could not provide information so it was taken from the records, and and ED physician and staff, patient is known to me from admission last month. At that time he was not taking care of himself, he was refusing follow-up with medical providers and came to the hospital for severe sepsis, bacteremia secondary to pressure ulcers and UTI. At that time his Ms. Dougherty (at [phone]) was thinking for hospice care however she change her mind and decided to treat him. This time patient presents also for possible sepsis . Patient is awake and follow simple commands however he looks confused and drowsy and go back to sleep right away. On admission he has a fever of 102.9. He was tachycardic around 110-120, tachypneic I 22, blood pressure 141/79, however the fissure was on the low side on admission 100/60. Labs showed leukocytosis with WBC 13.6 K, hemoglobin 11. D-dimer was elevated at 4.9. Elevated lactic acid, sodium is elevated to 146, creatinine with a very frustrated as 0.9, potassium 3.4. Liver enzymes not elevated. Lactate dehydrogenase is elevated at 1108, elevated C-reactive protein 229.2, proBNP is elevated at 4240. UA is suspicious of infection EKG showing atrial fibrillation with RVR at 123 CT of the chest showed emphysema, bilateral pleural effusion and atelectasis. Chest x-ray small bilateral pleural effusion and atelectasis. The emergency room patient was started on ceftriaxone and normal saline at 1 30 mL/h 09/15/2020 Patient is more awake today, however he still limited confused and lethargic. He denies any specific complaints, however his vitals stable Is leukocyte count is trending down to 11.6 K today. Lactic acid is back to normal. Pro-calcitonin is elevated at 1.4. Remains on ceftriaxone, urine culture is pending. Renal ultrasound: No mass or obstruction Wound 1 team R following the case for his pressure wounds and the recommended topical treatment Cardiology team R following the case closely for his A. fib and elevated troponin Ultrasound of the lower extremity no DVT Daughter wants patient to be full code CONSTITUTIONAL: No fever, no malaise, no fatigue. HEENT: No recent visual problems or hearing problems. Denied any sore throat. CARDIOVASCULAR: No orthopnea, PND, no palpitations, no syncope. PULMONARY: No shortness of breath, no cough, no hemoptysis. GASTROINTESTINAL: No diarrhea, no nausea, no vomiting, no abdominal pain. Normoactive bowel sounds. NEUROLOGICAL: No headaches, no weakness, no numbness. HEMATOLOGICAL: Denies any bleeding or petechiae. GENITOURINARY: Denies any burning micturition, frequency, or urgency. MUSCULOSKELETAL/RHEUMATOLOGICAL: Denies any joint pain, swelling, or any muscle pain. ENDOCRINE: Denies any polyuria or polydipsia. Active Medications Generic Name Dose Route Start Last Admin Trade Name Freq PRN Reason Stop Dose Admin Heparin Sodium (Porcine) 5,000 unit 09/22/20 21:00 09/23/20 08:45 Heparin Sodium,Porcine 5,000 Unit/Ml 1 Ml Vial SQ 5,000 unit Q12HR CONSUELO Administration Sodium Chloride 1,000 mls @ 130 mls/hr 09/22/20 14:15 09/22/20 22:15 Saline 0.9% IV 130 mls/hr .Q7H42M CONSUELO Administration Ceftriaxone Sodium 2 gm/ 50 mls @ 100 mls/hr 09/23/20 09:00 09/23/20 09:27 Sodium Chloride IVPB 100 mls/hr Q24HR CONSUELO Administration Pantoprazole Sodium 40 mg 09/23/20 09:00 09/23/20 08:45 Pantoprazole 40 Mg/10 Ml Vial IV 40 mg DAILY CONSUELO Administration Objective - Vital Signs Vital signs: Vital Signs Temp 97.4 F L 09/23/20 11:37 Pulse 68 09/23/20 11:37 Resp 18 09/23/20 11:37 BP 126/69 09/23/20 11:37 Pulse Ox 94 L 09/23/20 11:37 Intake & Output 09/22/20 09/23/20 09/23/20 18:59 06:59 18:59 Intake Total 0 650 Output Total 900 Balance 0 -250 Weight 49.895 kg 54 kg 54 kg Intake: Intake, IV Titration 650 Amount Sodium Chloride 0.9% 1, 650 000 ml @ 130 mls/hr IV . Q7H42M CONSUELO Rx#:[id number] Oral 0 Output: Urine 900 Other: Voiding Method Diaper Indwelling Catheter Indwelling Catheter - Exam -GENERAL: The patient is less Confused and drowsy, he answers questions. Follow-up simple commands. HEENT: Pupils are round and equally reacting to light. EOMI. No scleral icterus. No conjunctival pallor. Normocephalic, atraumatic. No pharyngeal erythema. No thyromegaly. CARDIOVASCULAR: S1 and S2 present. No murmurs, rubs, or gallops. PULMONARY: Chest is clear to auscultation, no wheezing or crackles. ABDOMEN: Soft, nontender, nondistended, normoactive bowel sounds. No palpable organomegaly. -MUSCULOSKELETAL: No joint swelling or deformity. Multiple pressure ulcers EXTREMITIES: No cyanosis, clubbing, or pedal edema. NEUROLOGICAL: Gross neurological examination did not reveal any focal deficits. SKIN: No rashes. no petechiae. - Labs CBC & Chem 7: 09/23/20 06:37 09/22/20 11:55 Labs: Abnormal Lab Results - Last 24 Hours (Table) 09/22/20 09/22/20 09/22/20 Range/Units 11:55 11:55 11:55 WBC 13.6 H (3.8-10.6) k/uL RBC 3.47 L (4.30-5.90) m/uL Hgb 11.0 L (13.0-17.5) gm/dL Hct 34.8 L (39.0-53.0) % MCV 100.2 H (80.0-100.0) fL MCHC (31.0-37.0) g/dL RDW (11.5-15.5) % Neutrophils # 11.5 H (1.3-7.7) k/uL PT 12.5 H (9.0-12.0) sec INR 1.2 H (<1.2) D-Dimer 4.93 H (<0.60) mg/L FEU Sodium (137-145) mmol/L Potassium (3.5-5.1) mmol/L Chloride (98-107) mmol/L Carbon Dioxide (22-30) mmol/L BUN (9-20) mg/dL Glucose (74-99) mg/dL Plasma Lactic Acid Aman (0.7-2.0) mmol/L Calcium (8.4-10.2) mg/dL Ferritin (22.0-322.0) ng/mL Total Bilirubin (0.2-1.3) mg/dL Lactate Dehydrogenase (313-618) U/L Creatine Kinase (55-170) U/L Troponin I (0.000-0.034) ng/mL C-Reactive Protein (<10.0) mg/L Total Protein (6.3-8.2) g/dL Albumin (3.5-5.0) g/dL Procalcitonin (0.02-0.09) ng/mL Urine Protein 2+ H (Negative) Urine Blood Moderate H (Negative) Urine Bilirubin 1+ H (Negative) Ur Leukocyte Esterase Large H (Negative) Urine RBC 135 H (0-5) /hpf Urine WBC >182 H (0-5) /hpf Urine Bacteria Moderate H (None) /hpf Urine Mucus Many H (None) /hpf Urine Yeast (Budding) Occasional H (None) /hpf 09/22/20 09/22/20 09/22/20 Range/Units 11:55 11:55 11:55 WBC (3.8-10.6) k/uL RBC (4.30-5.90) m/uL Hgb (13.0-17.5) gm/dL Hct (39.0-53.0) % MCV (80.0-100.0) fL MCHC (31.0-37.0) g/dL RDW (11.5-15.5) % Neutrophils # (1.3-7.7) k/uL PT (9.0-12.0) sec INR (<1.2) D-Dimer (<0.60) mg/L FEU Sodium 146 H (137-145) mmol/L Potassium 3.4 L (3.5-5.1) mmol/L Chloride 109 H (98-107) mmol/L Carbon Dioxide 32 H (22-30) mmol/L BUN 22 H (9-20) mg/dL Glucose 66 L (74-99) mg/dL Plasma Lactic Acid Aman 2.5 H* (0.7-2.0) mmol/L Calcium 7.7 L (8.4-10.2) mg/dL Ferritin 604.9 H (22.0-322.0) ng/mL Total Bilirubin 1.5 H (0.2-1.3) mg/dL Lactate Dehydrogenase 1108 H (313-618) U/L Creatine Kinase 36 L (55-170) U/L Troponin I 0.057 H* (0.000-0.034) ng/mL C-Reactive Protein 229.2 H (<10.0) mg/L Total Protein 5.9 L (6.3-8.2) g/dL Albumin 2.2 L (3.5-5.0) g/dL Procalcitonin (0.02-0.09) ng/mL Urine Protein (Negative) Urine Blood (Negative) Urine Bilirubin (Negative) Ur Leukocyte Esterase (Negative) Urine RBC (0-5) /hpf Urine WBC (0-5) /hpf Urine Bacteria (None) /hpf Urine Mucus (None) /hpf Urine Yeast (Budding) (None) /hpf 09/22/20 09/22/20 09/23/20 Range/Units 11:55 14:54 06:37 WBC 11.6 H (3.8-10.6) k/uL RBC 3.19 L (4.30-5.90) m/uL Hgb 9.6 L (13.0-17.5) gm/dL Hct 33.1 L (39.0-53.0) % MCV 103.8 H (80.0-100.0) fL MCHC 29.0 L (31.0-37.0) g/dL RDW 15.6 H (11.5-15.5) % Neutrophils # 9.7 H (1.3-7.7) k/uL PT (9.0-12.0) sec INR (<1.2) D-Dimer (<0.60) mg/L FEU Sodium (137-145) mmol/L Potassium (3.5-5.1) mmol/L Chloride (98-107) mmol/L Carbon Dioxide (22-30) mmol/L BUN (9-20) mg/dL Glucose (74-99) mg/dL Plasma Lactic Acid Aman 2.2 H* (0.7-2.0) mmol/L Calcium (8.4-10.2) mg/dL Ferritin (22.0-322.0) ng/mL Total Bilirubin (0.2-1.3) mg/dL Lactate Dehydrogenase (313-618) U/L Creatine Kinase (55-170) U/L Troponin I (0.000-0.034) ng/mL C-Reactive Protein (<10.0) mg/L Total Protein (6.3-8.2) g/dL Albumin (3.5-5.0) g/dL Procalcitonin 1.44 H (0.02-0.09) ng/mL Urine Protein (Negative) Urine Blood (Negative) Urine Bilirubin (Negative) Ur Leukocyte Esterase (Negative) Urine RBC (0-5) /hpf Urine WBC (0-5) /hpf Urine Bacteria (None) /hpf Urine Mucus (None) /hpf Urine Yeast (Budding) (None) /hpf Microbiology - Last 24 Hours (Table) 09/22/20 11:55 Urine Culture - Preliminary Urine,Voided Assessment and Plan Assessment: Severe sepsis with fever, tachycardia, tachypnea and leukocytosis Elevated lactic acid, improved Dehydration with hypernatremia and hypokalemia acute urinary tract infection Metabolic encephalopathy secondary to above A. fib with RVR. Patient is a known history of A. fib Elevated d-dimer with negative CT of the chest for PE Bilateral pressure ulcer Memory problem Cachexia and deconditioning, BMI is 15.8 , was 14.9 last month Generalized weakness Noncompliance and adherence to therapy Plan: This is a pleasant 80 years old male who presents with sepsis, UTI and A. fib and RVR. Start the patient and ceftriaxone, follow-up urine and blood culture. Monitor vitals closely. Continue with IV fluids. Cardiology consult for his A. fib. We will check a renal ultrasound Labs and medication were reviewed.. Continue same treatment. Continue with symptomatic treatment. Resume home medication. Monitor lytes and vitals. DVT and GI prophylaxis. Further recommendationsas per clinical course of the patient DVT prophylaxis: Subcutaneous heparin GI Prophylaxis: Pepcid PT/OT: Pending Prognosis is guarded
[2020-09-23 13:13] LABS: Calcium 6.5 mg/dL (8.4-10.2)
[2020-09-23 13:20] LABS: Potassium 2.7 mmol/L (3.5-5.1)
[2020-09-23] MEDS ORDERED: Potassium Replacement Protocol 1 EACH MISC MISCELLANE PRN ×2 (13:22)
[2020-09-23] MEDS ORDERED: Magnesium Replacement Protocol 1 EACH MISC MISCELLANE PRN (13:23)
[2020-09-23] MEDS: POTASSIUM CHLORIDE 10 MEQ in WATER FOR INJECTION 1 100ML.BAG IVPB SCH ×6 (13:41→20:57)
--- NOTE | 2020-09-23 14:33 | CDI ---
Documentation Clarification Form Date: 09/23/2020 02:05:50 PM From: Rhoda Gamez RN, CCDS Admit Date: 09/22/2020 02:15:00 PM Patient Name: Kervin Martinez Visit Number: [id number] Discharge Date: ATTENTION: The Clinical Documentation Specialists (CDI) and [facility] Coding Staff appreciate your assistance in clarifying documentation. Please respond to the clarification below the line at the bottom and electronically sign. The CDI & [facility] Coding staff will review the response and follow-up if needed. Please note: Queries are made part of the Legal Health Record. If you have any questions, please contact the author of this message via ITS. Dr. Juventino Gomez Past medical history, H/P has documented cachexia, and deconditioning, BMI 15.8, recent swallowing difficulties, confusion, multiple pressure ulcers. Please clarify the findings. History/Risk Factors: UTI, Atrial Fibrillation, Dementia, Pneumonia, Contractures bilateral legs Clinical Indicators: 80-year-old male present to ED confused and drowsy, decreased urine output, decreased intake with dry mucous membranes. 09/22 Vital signs 124/69 129 102.9 95 % 09/22 Labs: WBC 13.6, NA+ 146, CL 109 CO2 32, UA: Large Leukocyte Esterase, Bacteria >182; Lactic acid 2.5, LDH 1108Albumin 2.2, Total Protein 5.9 09/22 Current BMI: 17.1 Insufficient energy intake: Poor )% consumed, appetite Poor Under weight Treatment: Dietary Consult: yes 09/23 Supplements: Enlive TID, General/healthful diet Monitor PO, Monitor supplement intake Total assistance feeding In your professional opinion, can you please clarify if these findings signify one of the following conditions? Mild Protein-Calorie Malnutrition Moderate Protein-Calorie Malnutrition Severe Protein-Calorie Malnutrition Other condition, please specify Unable to determine (Last Revision: May 2019) Moderate Protein-Calorie Malnutrition MTDD
[2020-09-23] MEDS: SODIUM CHLORIDE 0.9% 1,000 ML IV SCH ×4 (14:58→23:19)
[2020-09-24] MEDS: HEPARIN SODIUM,PORCINE 5,000 UNIT/ML 1 ML VIAL SQ SCH ×3 (08:46→21:23)
[2020-09-24] MEDS: PANTOPRAZOLE 40 MG/10 ML VIAL IV SCH (08:46)
[2020-09-24 09:03] LABS: Basophils % (A) 0 %; Eosinophils % (A) 0 %; HCT 34.9 % (39.0-53.0); HGB 10.4 gm/dL (13.0-17.5); Hypochromasia Marked; Lymphocytes # (A) 1.3 k/uL (1.0-4.8); Lymphocytes % (A) 9 %; MCHC 29.8 g/dL (31.0-37.0); Macrocytosis Moderate; Mean Platelet Volume 8.7; Monocytes # (A) 0.3 k/uL (0-1.0); Monocytes % (A) 2 %; Neutrophils # (A) 12.5 k/uL (1.3-7.7); Neutrophils % (A) 88 %; Platelet Count 201 k/uL (150-450); RBC 3.36 m/uL (4.30-5.90); RDW 15.4 % (11.5-15.5); WBC 14.2 k/uL (3.8-10.6)
[2020-09-24 09:08] LABS: Calcium 7.4 mg/dL (8.4-10.2); Magnesium 1.8 mg/dL (1.6-2.3); Potassium 3.9 mmol/L (3.5-5.1)
--- NOTE | 2020-09-24 11:47 | CDI ---
Documentation Clarification Form Date: 09/24/2020 11:24:27 AM From: Rhoda Gamez RN, CCDS Admit Date: 09/22/2020 02:15:00 PM Patient Name: Kervin Martinez Visit Number: [id number] Discharge Date: ATTENTION: The Clinical Documentation Specialists (CDI) and [facility] Coding Staff appreciate your assistance in clarifying documentation. Please respond to the clarification below the line at the bottom and electronically sign. The CDI & [facility] Coding staff will review the response and follow-up if needed. Please note: Queries are made part of the Legal Health Record. If you have any questions, please contact the author of this message via ITS. Dr. Alex Woodall CHF is documented in the ED clinical impression on 09/22. Please further clarify the CHF. History/Risk Factors: Dementia Alcohol abuse Clinical Indicators: 80-year-old male present with decreased urine output, oral intake, generalized weakness. His respiratory exam; present: scattered rhonchi, decreased breath sounds. 09/22 VS/Pulse OX: 124/69 129 20 102.9 95 % EKG: Atrial Fibrillation rate of 123 09/22 Lab: Troponin 0.057 09/22 BNP: 4240 09/22 CTA: Bilateral pleural effusion, correlate atelectasis versus pneumonia. Pulmonary embolism not thought likely to be present. 09/22 CXR: Chronic emphysematous change with small bilateral pleural effusion. Persistent bibasilar acute atelectasis and/or infiltrate. Persistent mild interstitial edema 09/20 Echocardiogram Results: (Cardiology consult August 25) preserved LV systolic function with EF 55-60 % Chest X Ray: Treatment: 09/22 Lasix 40 mg IV Once STA In your professional opinion, can you please clarify the acuity and type of CHF if known or was it ruled out? CHF Ruled out Diastolic Heart Failure: Acute Chronic Acute on Chronic Systolic & Diastolic Heart Failure: Acute Chronic Acute on Chronic Heart Failure Unable to Determine Other, please specify (Last Revision: February 2018) I never took care of this patient You are wasting my time asking me to address this question Can you please report this to your steam crane operator and figure out a way to avoid this in future Dr Jose C WOMACK
[2020-09-24] MEDS: MAGNESIUM SULFATE-D5W PMX 1 GM in DEXTROSE/WATER 1 100ML.BAG IVPB SCH ×2 (11:53→15:55)
[2020-09-24] MEDS: POTASSIUM CHLORIDE 10 MEQ in WATER FOR INJECTION 1 100ML.BAG IVPB SCH (17:27)
--- NOTE | 2020-09-24 18:58 | P.PN ---
Progress Note - Text Progress Note Date: 09/24/20 Presenting complaint: History of presenting complaint: [Per DrTaz Sheet] This is a pleasant 80 years old male with unknown past medical history, patient could not provide information so it was taken from the records, and and ED physician and staff, patient is known to me from admission last month. At that time he was not taking care of himself, he was refusing follow-up with medical providers and came to the hospital for severe sepsis, bacteremia secondary to pressure ulcers and UTI. At that time his Ms. Dougherty (at [phone]) was thinking for hospice care however she change her mind and decided to treat him. This time patient presents also for possible sepsis . Patient is awake and follow simple commands however he looks confused and drowsy and go back to sleep right away. On admission he has a fever of 102.9. He was tachycardic around 110-120, tachypneic I 22, blood pressure 141/79, however the fissure was on the low side on admission 100/60. Labs showed leukocytosis with WBC 13.6 K, hemoglobin 11. D-dimer was elevated at 4.9. Elevated lactic acid, sodium is elevated to 146, creatinine with a very frustrated as 0.9, potassium 3.4. Liver enzymes not elevated. Lactate dehydrogenase is elevated at 1108, elevated C-reactive protein 229.2, proBNP is elevated at 4240. UA is suspicious of infection EKG showing atrial fibrillation with RVR at 123 CT of the chest showed emphysema, bilateral pleural effusion and atelectasis. Chest x-ray small bilateral pleural effusion and atelectasis. The emergency room patient was started on ceftriaxone and normal saline at 1 30 mL/h Admitted with-sepsis, increased lactic acid, dehydration, hyponatremia, acute UTI, metabolic encephalopathy from above, A. fib with rapid ventricular rate. Be ruled out. Bilateral pressure ulcer. Cachexia. Today-patient has been doing poorly. Oral intake variable. pipe out worker informed me that daughter is looking to take the patient home. Also considering hospice. Appropriate. Review of systems: Was done for constitutional, cardiovascular, GI, pulmonary. relevant finding as above Active Medications Heparin Sodium (Porcine) (Heparin Sodium,Porcine 5,000 Unit/Ml 1 Ml Vial) 5,000 unit SQ Q12HR CONSUELO Last Admin: 09/24/20 08:49 Dose: Not Given Documented by: Sodium Chloride (Saline 0.9%) 1,000 mls @ 75 mls/hr IV .[id number] [facility] Last Admin: 09/23/20 23:19 Dose: 75 mls/hr Documented by: Ceftriaxone Sodium 2 gm/ (Sodium Chloride) 50 mls @ 100 mls/hr IVPB Q24HR [facility] Last Admin: 09/24/20 08:45 Dose: 100 mls/hr Documented by: Miscellaneous Information (Potassium Replacement Protocol 1 Each Misc) 1 each MISCELLANE DAILY PRN; Protocol PRN Reason: Per Protocol Miscellaneous Information (Magnesium Replacement Protocol 1 Each Misc) 1 each MISCELLANE DAILY PRN; Protocol PRN Reason: Per Protocol Pantoprazole Sodium (Pantoprazole 40 Mg Tablet) 40 mg PO [id number] [facility] .On examination: VITAL SIGNS: 98.4, 92, 16, 160/74, 92% room air GENERAL APPEARANCE: emaciated, loss of muscle mass,, EYES: Pupils equal. Conjunctiva pale NECK: JVD not raised. Mass not palpable. RESPIRATORY: Respiratory effort increased. Lungs decreased breath sounds CARDIOVASCULAR: First and second sounds normal. No edema. EXTREMITY: Pressure ulcers as detailed in Dr. green's notes ABDOMEN: Soft. Liver and spleen not palpable. No tenderness. No mass palpable. PSYCHIATRY: Tired, a bit irritated, answering occasional questions. Investigations: Urine culture positive for E. coli and Carmen glabrata White count 14.2 hemoglobin 10.4 platelets 201 potassium 3.9 sodium 148 creatinine 1.08 bun 33 Venous Doppler-negative for DVT Renal ultrasound-markedly dilated gallbladder with gallstone EKG tracing-atrial fibrillation Computed tomography scan of chest-bilateral pleural effusion emphysema Assessment: -Severe sepsis, POA -Elevated lactic acid -Dehydration -Hyponatremia -Hypokalemia -Acute UTI with cystitis causing sepsis-from E. coli -Acute metabolic encephalopathy and presentation from infection -Persistent atrial fibrillation rapid ventricular rate -Pulmonary embolism ruled out -Bilateral pressure ulcer above the ankle -Moderate cognitive impairment -Cachexia and deconditioning -Severe protein calorie malnutrition from decreased oral intake -Advancing medical debility -Advancing myopathy -Pressure ulcers on the right hip, unstageable, pressure ulcers on the left hip stage II, pressure ulcers of the coccygeal region stage II, pressure ulcer of the right ankle stage II Plan: Patient's prognosis not good. Did speak at length with the disease case manager. Did talk to the patient's daughter over the phone briefly. Patient will be a good candidate for hospice. We'll have the daughter come in tomorrow. Also spoke to the nurse. Continue current medication. Total time spent today about 40 minutes with over 25 minutes of discussion. Continue IV ceftriaxone for now.
[2020-09-24] MEDS ORDERED: FLUCONAZOLE 100 MG TAB PO ONE (18:59)
[2020-09-24] MEDS: DEXTROSE 5%-0.45% NACL 1,000 ML IV SCH (21:21)
[2020-09-25] MEDS ORDERED: ACETAMINOPHEN TAB 325 MG TAB PO PRN (04:18)
[2020-09-25] MEDS: MORPHINE CONC SOLN 10mg/0.5mL ORAL SYRG PO PRN ×3 (04:43→22:02)
[2020-09-25] MEDS: DEXTROSE 5%-0.45% NACL 1,000 ML IV SCH ×3 (04:44→21:43)
[2020-09-25] MEDS: PANTOPRAZOLE 40 MG TABLET PO SCH (06:25)
[2020-09-25] MEDS: LORazepam 0.5 MG TAB PO PRN ×2 (09:23→17:45)
[2020-09-25] MEDS: HEPARIN SODIUM,PORCINE 5,000 UNIT/ML 1 ML VIAL SQ SCH ×2 (09:23→21:41)
[2020-09-25 13:33] VITALS: BMI 18.5
[2020-09-25] MEDS ORDERED: FUROSEMIDE 10 MG/ML 2 ML VIAL IV ONE (21:50)
--- NOTE | 2020-09-25 22:16 | P.PN ---
Progress Note - Text Progress Note Date: 09/25/20 Presenting complaint: History of presenting complaint: [Per DrTza Sheet] This is a pleasant 80 years old male with unknown past medical history, patient could not provide information so it was taken from the records, and and ED physician and staff, patient is known to me from admission last month. At that time he was not taking care of himself, he was refusing follow-up with medical providers and came to the hospital for severe sepsis, bacteremia secondary to pressure ulcers and UTI. At that time his Ms. Dougherty (at [phone]) was thinking for hospice care however she change her mind and decided to treat him. This time patient presents also for possible sepsis . Patient is awake and follow simple commands however he looks confused and drowsy and go back to sleep right away. On admission he has a fever of 102.9. He was tachycardic around 110-120, tachypneic I 22, blood pressure 141/79, however the fissure was on the low side on admission 100/60. Labs showed leukocytosis with WBC 13.6 K, hemoglobin 11. D-dimer was elevated at 4.9. Elevated lactic acid, sodium is elevated to 146, creatinine with a very frustrated as 0.9, potassium 3.4. Liver enzymes not elevated. Lactate dehydrogenase is elevated at 1108, elevated C-reactive protein 229.2, proBNP is elevated at 4240. UA is suspicious of infection EKG showing atrial fibrillation with RVR at 123 CT of the chest showed emphysema, bilateral pleural effusion and atelectasis. Chest x-ray small bilateral pleural effusion and atelectasis. The emergency room patient was started on ceftriaxone and normal saline at 1 30 mL/h Admitted with-sepsis, increased lactic acid, dehydration, hyponatremia, acute UTI, metabolic encephalopathy from above, A. fib with rapid ventricular rate. Be ruled out. Bilateral pressure ulcer. Cachexia. Today-oral intake poor. Doesn't communicate much. Occasional. IV fluids been discontinued.. Review of systems: Was attempted for constitutional, cardiovascular, GI, pulmonary. relevant finding as above Active Medications Acetaminophen (Acetaminophen Tab 325 Mg Tab) 650 mg PO Q6HR PRN PRN Reason: Mild Pain or Fever > 100.5 Heparin Sodium (Porcine) (Heparin Sodium,Porcine 5,000 Unit/Ml 1 Ml Vial) 5,000 unit SQ Q12HR CONSUELO Last Admin: 09/25/20 21:41 Dose: 5,000 unit Documented by: Ceftriaxone Sodium 2 gm/ (Sodium Chloride) 50 mls @ 100 mls/hr IVPB Q24HR [facility] Last Admin: 09/25/20 09:23 Dose: 100 mls/hr Documented by: Dextrose/Sodium Chloride (Dextrose 5%-1/2ns Iv Soln) 1,000 mls @ 20 mls/hr IV .Q24H [facility] Last Admin: 09/25/20 21:43 Dose: 20 mls/hr Documented by: Lorazepam (Lorazepam 0.5 Mg Tab) 0.5 mg PO Q8H PRN PRN Reason: Anxiety Last Admin: 09/25/20 17:45 Dose: 0.5 mg Documented by: Miscellaneous Information (Potassium Replacement Protocol 1 Each Misc) 1 each MISCELLANE DAILY PRN; Protocol PRN Reason: Per Protocol Miscellaneous Information (Magnesium Replacement Protocol 1 Each Misc) 1 each MISCELLANE DAILY PRN; Protocol PRN Reason: Per Protocol Morphine Sulfate (Morphine Conc Soln 10mg/0.5ml Oral Syrg) 5 mg PO Q4H PRN PRN Reason: Pain Last Admin: 09/25/20 22:02 Dose: 5 mg Documented by: Pantoprazole Sodium (Pantoprazole 40 Mg Tablet) 40 mg PO AC-BRKFST [facility] Last Admin: 09/25/20 06:25 Dose: 40 mg Documented by: .On examination: VITAL SIGNS: 98.5, 105, 22, 131/59, 95% on 2 L GENERAL APPEARANCE: emaciated, loss of muscle mass,, EYES: Pupils equal. Conjunctiva pale NECK: JVD not raised. Mass not palpable. RESPIRATORY: Respiratory effort increased. Lungs decreased breath sounds CARDIOVASCULAR: First and second sounds normal. No edema. EXTREMITY: Pressure ulcers as detailed in Dr. green's notes ABDOMEN: Soft. Liver and spleen not palpable. No tenderness. No mass palpable. PSYCHIATRY: Tired, , answering occasional questions. Investigations: Urine culture positive for E. coli and Carmen glabrata White count 14.2 hemoglobin 10.4 platelets 201 potassium 3.9 sodium 148 creatinine 1.08 bun 33 Venous Doppler-negative for DVT Renal ultrasound-markedly dilated gallbladder with gallstone EKG tracing-atrial fibrillation Computed tomography scan of chest-bilateral pleural effusion emphysema Assessment: -Severe sepsis, POA -Elevated lactic acid -Dehydration -Hyponatremia -Hypokalemia -Acute UTI with cystitis causing sepsis-from E. coli -Acute metabolic encephalopathy and presentation from infection -Persistent atrial fibrillation rapid ventricular rate -Pulmonary embolism ruled out -Bilateral pressure ulcer above the ankle -Moderate cognitive impairment -Cachexia and deconditioning -Severe protein calorie malnutrition from decreased oral intake -Advancing medical debility -Advancing myopathy -Pressure ulcers on the right hip, unstageable, pressure ulcers on the left hip stage II, pressure ulcers of the coccygeal region stage II, pressure ulcer of the right ankle stage II Plan: continue current medication treatment plan. Stop IV fluids. 1 dose of IV Lasix. Oxygen supplementation. Advanced care planning: Methods patient's 2 daughters at bedside. Including the one that is the DP OA. They understand patient's overall guarded prognosis. They talked to staff from [facility] earlier today. Comfort feeding was discussed. As patient not able to ambulate care will be easily in the bed. He'll be using diapers. Medications were discussed including morphine, Ativan, scopolamine patch. Other questions were answered. Equipment will be delivered home tomorrow. As they need some more time. Patient be discharged to home with hospice tomorrow. Total of about 30 minutes was spent for this.
[2020-09-26] MEDS: MORPHINE CONC SOLN 10mg/0.5mL ORAL SYRG PO PRN ×3 (06:08→18:04)
[2020-09-26] MEDS: PANTOPRAZOLE 40 MG TABLET PO SCH (06:43)
[2020-09-26 08:27] LABS: African American GFR (CKD) >90 (>60 ml/min/1.73 sqM); Anion Gap 2 mmol/L; Blood Urea Nitrogen 23 mg/dL (9-20); Calcium 7.3 mg/dL (8.4-10.2); Carbon Dioxide 31 mmol/L (22-30); Chloride 111 mmol/L (98-107); Glucose 87 mg/dL (74-99); Non-African American GFR(CKD) 85 (>60 ml/min/1.73 sqM); Potassium 3.5 mmol/L (3.5-5.1); Sodium 144 mmol/L (137-145)
[2020-09-26] MEDS: HEPARIN SODIUM,PORCINE 5,000 UNIT/ML 1 ML VIAL SQ SCH (09:55)
[2020-09-26 10:19] VITALS: BP 116/60; PULSE 101; RESP 24; TEMP 98.2
--- NOTE | 2020-09-26 23:39 | P.DS ---
Providers Date of admission: 09/22/20 14:15 Expected date of discharge: 09/26/20 Attending physician: Juan Wilson Consults: 09/22/20 14:15 Consult Physician Stat Consulting Provider: Alex Woodall Consult Reason/Comments: elevated troponin Do you want consulting provider notified?: Yes Primary care physician: [facility] Course: Presenting complaint: History of presenting complaint: [Per Dr. Sheet] This is a pleasant 80 years old male with unknown past medical history, patient could not provide information so it was taken from the records, and and ED phys ician and staff, patient is known to me from admission last month. At that time he was not taking care of himself, he was refusing follow-up with medical providers and came to the hospital for severe sepsis, bacteremia secondary to pressure ulcers and UTI. At that time his MsTaz Dougherty (at [phone]) was thinking for hospice care however she change her mind and decided to treat him. This time patient presents also for possible sepsis . Patient is awake and follow simple commands however he looks confused and drowsy and go back to sleep right away. On admission he has a fever of 102.9. He was tachycardic around 110-120, tachypneic I 22, blood pressure 141/79, however the fissure was on the low side on admission 100/60. Labs showed leukocytosis with WBC 13.6 K, hemoglobin 11. D-dimer was elevated at 4.9. Elevated lactic acid, sodium is elevated to 146, creatinine with a very frustrated as 0.9, potassium 3.4. Liver enzymes not elevated. Lactate dehydrogenase is elevated at 1108, elevated C-reactive protein 229.2, proBNP is elevated at 4240. UA is suspicious of infection EKG showing atrial fibrillation with RVR at 123 CT of the chest showed emphysema, bilateral pleural effusion and atelectasis. Chest x-ray small bilateral pleural effusion and atelectasis. The emergency room patient was started on ceftriaxone and normal saline at 1 30 mL/h Admitted with-sepsis, increased lactic acid, dehydration, hyponatremia, acute UTI, metabolic encephalopathy from above, A. fib with rapid ventricular rate. Be ruled out. Bilateral pressure ulcer. Cachexia. Today-poor oral intake. On oxygen. Paperwork done for discharge to home with hospice. Consultation: Dr. green [facility] .On examination: VITAL SIGNS: 98.2, 101, 24, 116/60, 84% on 5 L GENERAL APPEARANCE: emaciated, loss of muscle mass,, EYES: Pupils equal. Conjunctiva pale NECK: JVD not raised. Mass not palpable. RESPIRATORY: Respiratory effort increased. Lungs decreased breath sounds CARDIOVASCULAR: First and second sounds normal. No edema. EXTREMITY: Pressure ulcers as detailed in Dr. green's notes ABDOMEN: Soft. Liver and spleen not palpable. No tenderness. No mass palpable. PSYCHIATRY: Tired, , answering occasional questions. Investigations: Urine culture positive for E. coli and Carmen glabrata White count 14.2 hemoglobin 10.4 platelets 201 potassium 3.9 sodium 148 creatinine 1.08 bun 33 Venous Doppler-negative for DVT Renal ultrasound-markedly dilated gallbladder with gallstone EKG tracing-atrial fibrillation Computed tomography scan of chest-bilateral pleural effusion emphysema Assessment: -Severe sepsis, POA -Elevated lactic acid -Dehydration -Hyponatremia -Hypokalemia -Acute UTI with cystitis causing sepsis-from E. coli -Acute metabolic encephalopathy and presentation from infection -Persistent atrial fibrillation rapid ventricular rate -Pulmonary embolism ruled out -Bilateral pressure ulcer above the ankle -Moderate cognitive impairment -Cachexia and deconditioning -Severe protein calorie malnutrition from decreased oral intake -Advancing medical debility -Advancing myopathy -Pressure ulcers on the right hip, unstageable, pressure ulcers on the left hip stage II, pressure ulcers of the coccygeal region stage II, pressure ulcer of the right ankle stage II Disposition: Home with hospice Patient Condition at Discharge: Poor Plan - Discharge Summary Discharge Rx Participant: No New Discharge Prescriptions: New LORazepam [Ativan] 0.5 mg PO Q6H PRN #30 tab PRN Reason: Anxiety Cephalexin [Keflex] 250 mg PO Q8HR #10 capsule MORPHINE ORAL MAX CONC 20mg/mL [Roxanol Oral Soln Conc 20Mg/ml] 5 mg PO Q4H PRN #30 ml PRN Reason: Pain Control Scopolamine 1.5MG/72Hr Patch [TransDerm Scop] 1 patch TRANSDERM Q72H #5 patch Continue Acetaminophen Tab [Tylenol] 650 mg PO Q6HR PRN tab PRN Reason: Mild Pain Or Fever > 100.5 Discontinued [place]-3 Fatty Acids/Fish Oil [Fish Oil 1,000 mg Softgel] 1 cap PO DAILY Multivitamins, Thera [Multivitamin (formulary)] 1 tab PO DAILY bisacodyL [Dulcolax] 10 mg RECTAL HS PRN PRN Reason: Constipation LORazepam [Ativan] 0.5 mg PO Q8H PRN PRN Reason: Anxiety Metoprolol Tartrate [Lopressor] 25 mg PO BID Sennosides [Senna] 8.6 mg PO HS Morphine Sulfate [Morphine Sulfate Oral Soln Conc (20 MG/ML)] 5 mg PO Q4H PRN PRN Reason: Pain Discharge Medication List Acetaminophen Tab [Tylenol] 650 mg PO Q6HR PRN tab 09/01/20 [Rx] Cephalexin [Keflex] 250 mg PO Q8HR #10 capsule 09/26/20 [Rx] LORazepam [Ativan] 0.5 mg PO Q6H PRN #30 tab 09/26/20 [Rx] MORPHINE ORAL MAX CONC 20mg/mL [Roxanol Oral Soln Conc 20Mg/ml] 5 mg PO Q4H PRN #30 ml 09/26/20 [Rx] Scopolamine 1.5MG/72Hr Patch [TransDerm Scop] 1 patch TRANSDERM Q72H #5 patch 09/26/20 [Rx] Follow up Appointment(s)/Referral(s): Roger Siegel DO [Primary Care Provider] - 1-2 days [facility], [NON-STAFF] - Patient Instructions/Handouts: Hospice Care (GEN) Discharge Disposition: HOME WITH HOSPICE
--- NOTE | 2020-10-02 15:37 | CDI ---
Documentation Clarification Form Date: 10/02/2020 03:30:27 PM From: Rhoda Gamez RN, CCDS Admit Date: 09/22/2020 02:15:00 PM Patient Name: Kervin Martinez Visit Number: [id number] Discharge Date: 09/26/2020 06:34:00 PM ATTENTION: The Clinical Documentation Specialists (CDI) and [facility] Coding Staff appreciate your assistance in clarifying documentation. Please respond to the clarification below the line at the bottom and electronically sign. The CDI & [facility] Coding staff will review the response and follow-up if needed. Please note: Queries are made part of the Legal Health Record. If you have any questions, please contact the author of this message via ITS. Dr. Juan Wilson CHF is documented in the ED clinical impression on 09/22. He received IV Lasix on 09/22 and 09/25. Please further clarify the CHF. History/Risk Factors: Dementia Alcohol abuse Clinical Indicators: 80-year-old male present with decreased urine output, oral intake, generalized weakness. His respiratory exam; present: scattered rhonchi, decreased breath sounds. 09/22 VS/Pulse OX: 124/69 129 20 102.9 95 % EKG: Atrial Fibrillation rate of 123 09/22 Lab: Troponin 0.057 09/22 BNP: 4240 09/22 CTA: Bilateral pleural effusion, correlate atelectasis versus pneumonia. Pulmonary embolism not thought likely to be present. 09/22 CXR: Chronic emphysematous change with small bilateral pleural effusion. Persistent bibasilar acute atelectasis and/or infiltrate. Persistent mild interstitial edema 09/20 Echocardiogram Results: (Cardiology consult August 25) preserved LV systolic function with EF 55-60 % Chest X Ray: Treatment: 09/22 Lasix 40 mg IV Once STA 09/25 Lasix 40 mg IV Once In your professional opinion, can you please clarify the acuity and type of CHF if known or was it ruled out? CHF Ruled out Diastolic Heart Failure: Acute Chronic Acute on Chronic Systolic & Diastolic Heart Failure: Acute Chronic Acute on Chronic Heart Failure Unable to Determine Other, please specify (Last Revision: February 2018) No congestive heart failure MTDD
== END 2020-09-26 18:34 | disposition hospice, home (50) | DRG 871 ==
LOC: EC 11:24 → 3SCARD 14:15
PROVIDERS: ADMIT Hospitalist; ATTEND Hospitalist
DX: A41.51 Sepsis due to Escherichia coli [E. coli] (principal); G93.41 Metabolic encephalopathy; E43 Unspecified severe protein-calorie malnutrition; J18.9 Pneumonia, unspecified organism; R64 Cachexia; E87.2 Acidosis; E87.0 Hyperosmolality and hypernatremia; I48.19 Other persistent atrial fibrillation; E87.1 Hypo-osmolality and hyponatremia; Z68.1 Body mass index [BMI] 19.9 or less, adult; L89.210 Pressure ulcer of right hip, unstageable; L89.222 Pressure ulcer of left hip, stage 2; L89.152 Pressure ulcer of sacral region, stage 2; L89.512 Pressure ulcer of right ankle, stage 2; G72.9 Myopathy, unspecified; F03.90 Unspecified dementia, unspecified severity, without behavioral disturbance, psychotic disturbance, mood disturbance, and anxiety; R65.20 Severe sepsis without septic shock; Z51.5 Encounter for palliative care; Z66 Do not resuscitate; Z20.828 Contact with and (suspected) exposure to other viral communicable diseases; G40.909 Epilepsy, unspecified, not intractable, without status epilepticus; J43.9 Emphysema, unspecified; E87.6 Hypokalemia; N30.90 Cystitis, unspecified without hematuria; E86.0 Dehydration; H91.90 Unspecified hearing loss, unspecified ear; K21.9 Gastro-esophageal reflux disease without esophagitis; R79.82 Elevated C-reactive protein (CRP); R15.9 Full incontinence of feces; F10.11 Alcohol abuse, in remission; Z71.3 Dietary counseling and surveillance; Z79.899 Other long term (current) drug therapy; Z87.891 Personal history of nicotine dependence; Z91.19 Patient's noncompliance with other medical treatment and regimen; Z87.01 Personal history of pneumonia (recurrent); Z87.440 Personal history of urinary (tract) infections; Z87.820 Personal history of traumatic brain injury; Z80.0 Family history of malignant neoplasm of digestive organs; Z80.49 Family history of malignant neoplasm of other genital organs
CPT/HCPCS: 36415; 71045; 71275; 76770; 80048; 80053; 81001; 82550; 82728; 83605; 83615; 83735; 83880; 84132; 84145; 84484; 85025; 85379; 85610; 85730; 86140; 87040; 87077; 87086; 87186; 93005; 93970; 96361; 96365; 96375; 99291